=== PATIENT | male | born 1970 | race Caucasian/White ===

== ENCOUNTER → 2020-03-17 09:41 | Outpatient (BNVA) | payer MEDICARE, MEDICAID, SELFPAY | PROVIDERS: PCP Internal Medicine; Referring Provider Internal Medicine; Visit Provider Internal Medicine Endocrinology, Diabetes & Metabolism | DX: Z13.89 Encounter for screening for other disorder (principal) | CPT/HCPCS: Q3014 ==

== ENCOUNTER 2020-04-04 08:34 | Outpatient (REF) | payer MEDICARE, MEDICAID, SELFPAY ==
[2020-04-04 09:33] LABS: Mean Corpuscular Volume 94.4 fL (80-98); Monocytes Percent Auto 12.2 % (2-11)
[2020-04-04 09:35] LABS: Basophils Absolute Auto 0.1 X10*3/uL (0.0-0.2); Basophils Percent Auto 0.9 % (0-2); Eosinophils Absolute Auto 0.1 X10*3/uL (0.0-0.4); Eosinophils Percent Auto 1.6 % (0-4); Hematocrit 45.4 % (42-52); Imm Gran Abs Auto 0.02 X10*3/uL (0.00-0.03); Imm Gran Pct Auto 0.3 % (0.0-0.4); Lymphocytes Absolute Auto 1.3 X10*3/uL (1.2-4.9); Lymphocytes Percent Auto 19.3 % (20-40); Mean Corpuscular Hemoglobin 31.2 pg (27.0-33.0); Mean Platelet Volume 11.4 fL (9.4-12.4); Monocytes Absolute Auto 0.8 X10*3/uL (0.1-1.2); Neutrophils Absolute Auto 4.5 X10*3/uL (2.0-8.3); Neutrophils Percent Auto 65.7 % (45-73); Red Blood Count 4.81 X10*6/uL (4.60-5.80); Red Cell Distribution Width 15.3 % (11.0-16.0); White Blood Count 6.8 X10*3/uL (4.8-10.8)
[2020-04-04 09:37] LABS: MANUAL DIFF FLAG NO
[2020-04-04 09:42] LABS: Estimated Average Glucose 283 mg/dL; Hemoglobin A1c % 11.5 %
[2020-04-04 09:55] LABS: Creatinine Urine 15.26 mg/dL; Microalbumin Urine < 5.0 mg/L
[2020-04-04 09:59] LABS: Lithium 0.22 mmol/L (0.60-1.20); Platelet Count 88 X10*3/uL (160-400)
[2020-04-04 10:02] LABS: Osmolality Urine 408 mosm/kg (373-1093)
[2020-04-04 10:05] LABS: Osmolality, Serum 318 mosm/kg (281-305)
[2020-04-04 10:08] LABS: Alanine Aminotransferase 106 U/L (0-40); Albumin Level 4.1 g/dL (3.5-5.0); Alkaline Phosphatase 178 U/L (39-117); Anion Gap 14 (12-20); Aspartate Amino Transferase 93 U/L (5-37); Bilirubin Total 1.2 mg/dL (0.0-1.0); Blood Urea Nitrogen 6 mg/dL (9-16); Calcium 8.8 mg/dL (8.4-10.2); Carbon Dioxide 24 mmol/L (22-29); Chloride 102 mmol/L (96-108); Cholesterol 156 mg/dL; Estimated Glomerular Filt Rate > 60; HDL Cholesterol 43 mg/dL; LDL Cholesterol Calculated 97 mg/dl; Potassium 3.8 mmol/l (3.3-5.1); Sodium 136 mmol/L (135-145); Total Protein 8.7 g/dL (6.5-8.0); Triglycerides 82 mg/dL
[2020-04-04 10:18] LABS: Free T4 (Free Thyroxine) 1.07 ng/dL (0.71-1.85); Thyroid Stimulating Hormone 1.03 uIU/mL (0.32-4.0); Vitamin D 25-OH Total 56.2 ng/mL (>30)
[2020-04-04 11:05] LABS: Glucose Fasting 450 mg/dL (60-99)
[2020-04-05 07:27] LABS: LDL Cholesterol Direct 107 mg/dL (<100)
[2020-04-06 04:02] LABS: Vitamin B12 792 pg/mL (200-900)
== END 2020-04-04 08:35 | disposition home or self-care (01) ==
LOC: HO.LAB 08:34
PROVIDERS: Nurse Practitioner Family; Absent Provider Psychiatry & Neurology Psychiatry; PCP Internal Medicine; Visit Provider Internal Medicine Endocrinology, Diabetes & Metabolism
DX: E89.0 Postprocedural hypothyroidism (principal); Z79.899 Other long term (current) drug therapy; E03.9 Hypothyroidism, unspecified; E11.65 Type 2 diabetes mellitus with hyperglycemia
CPT/HCPCS: 36415; 80053; 80061; 80178; 82043; 82306; 82607; 83036; 83721; 83930; 83935; 84439; 84443; 85025

== ENCOUNTER → 2020-04-17 10:24 | Outpatient (BNVA) | payer MEDICARE, MEDICAID, SELFPAY | PROVIDERS: PCP Internal Medicine; Visit Provider Urology | DX: R33.9 Retention of urine, unspecified (principal) | CPT/HCPCS: 51798; 81002; 99212 ==

== ENCOUNTER → 2020-05-07 09:25 | Outpatient (BNVA) | payer MEDICARE, MEDICAID, SELFPAY | PROVIDERS: Visit Provider Urology | DX: E11.9 Type 2 diabetes mellitus without complications (principal); Z79.4 Long term (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 of insulin; R33.9 Retention of urine, unspecified; N49.2 Inflammatory disorders of scrotum | CPT/HCPCS: 51798; 81002; 99212 ==

== ENCOUNTER → 2020-05-11 12:49 | Outpatient (BNVA) | payer MEDICARE, MEDICAID, SELFPAY | PROVIDERS: PCP Internal Medicine; Visit Provider Internal Medicine Gastroenterology | CPT/HCPCS: Q3014 ==

== ENCOUNTER → 2020-07-21 10:41 | Outpatient (BNVA) | payer MEDICARE, MEDICAID, SELFPAY | PROVIDERS: PCP Internal Medicine; Referring Provider Internal Medicine; Visit Provider Internal Medicine Endocrinology, Diabetes & Metabolism | DX: E11.65 Type 2 diabetes mellitus with hyperglycemia (principal); E11.21 Type 2 diabetes mellitus with diabetic nephropathy; Z79.4 Long term (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 of insulin; E89.0 Postprocedural hypothyroidism; E78.5 Hyperlipidemia, unspecified; E55.9 Vitamin D deficiency, unspecified; E66.9 Obesity, unspecified | CPT/HCPCS: 82947; 99212 ==

== ENCOUNTER 2020-08-03 09:02 | Outpatient (REF) | payer MEDICARE, MEDICAID, SELFPAY ==
[2020-08-03 09:21] LABS: COVID-19 Test Negative (Negative)
== END 2020-08-03 09:03 | disposition home or self-care (01) ==
LOC: HO.LAB 09:02
PROVIDERS: Visit Provider Internal Medicine
DX: Z20.822 Contact with and (suspected) exposure to COVID-19 (principal)
CPT/HCPCS: 36415; 87635; C9803

== ENCOUNTER 2020-09-05 09:26 | Outpatient (REF) | payer MEDICARE, MEDICAID, SELFPAY ==
[2020-09-05 10:00] LABS: Imm Gran Abs Auto 0.02 X10*3/uL (0.00-0.03); Imm Gran Pct Auto 0.3 % (0.0-0.4); Mean Corpuscular Hemoglobin 31.7 pg (27.0-33.0); PLT CLUMP 1; Red Cell Distribution Width 16.3 % (11.0-16.0); SCAN SMEAR FLAG 1
[2020-09-05 10:01] LABS: Basophils Absolute Auto 0.1 X10*3/uL (0.0-0.2); Eosinophils Absolute Auto 0.1 X10*3/uL (0.0-0.4); Eosinophils Percent Auto 1.8 % (0-4); Hematocrit 46.5 % (42-52); Hemoglobin 15.3 g/dl (14.0-18.0); Lymphocytes Absolute Auto 1.6 X10*3/uL (1.2-4.9); Lymphocytes Percent Auto 23.9 % (20-40); Mean Corpuscular HGB Conc 32.9 g/dl (31.0-36.0); Mean Corpuscular Volume 96.3 fL (80-98); Mean Platelet Volume 10.9 fL (9.4-12.4); Monocytes Absolute Auto 0.9 X10*3/uL (0.1-1.2); Monocytes Percent Auto 13.9 % (2-11); Neutrophils Percent Auto 59.1 % (45-73); Red Blood Count 4.83 X10*6/uL (4.60-5.80); White Blood Count 6.8 X10*3/uL (4.8-10.8)
[2020-09-05 10:03] LABS: Platelet Count 80 X10*3/uL (160-400)
[2020-09-05 10:30] LABS: Lithium 0.28 mmol/L (0.60-1.20)
[2020-09-05 10:46] LABS: Alanine Aminotransferase 110 U/L (0-40); Albumin Level 4.3 g/dL (3.5-5.0); Alkaline Phosphatase 157 U/L (39-117); Anion Gap 18 (12-20); Aspartate Amino Transferase 110 U/L (5-37); Blood Urea Nitrogen 8 mg/dL (9-16); Calcium 10.1 mg/dL (8.4-10.2); Carbon Dioxide 24 mmol/L (22-29); Chloride 108 mmol/L (96-108); Cholesterol 161 mg/dL; Estimated Glomerular Filt Rate > 60; Glucose Random 229 mg/dL (60-115); HDL Cholesterol 45 mg/dL; LDL Cholesterol Calculated 94 mg/dl; Potassium 4.1 mmol/L (3.3-5.1); Sodium 146 mmol/L (135-145); Total Protein 8.8 g/dL (6.5-8.0); Triglycerides 112 mg/dL
[2020-09-05 11:02] LABS: Thyroid Stimulating Hormone 0.25 uIU/mL (0.32-4.0); Vitamin D 25-OH Total 51.5 ng/mL (>30)
== END 2020-09-05 09:27 | disposition home or self-care (01) ==
LOC: HO.LAB 09:26
PROVIDERS: PCP Internal Medicine; Visit Provider Psychiatry & Neurology Psychiatry
DX: Z79.899 Other long term (current) drug therapy (principal)
CPT/HCPCS: 36415; 80053; 80061; 80178; 82306; 84443; 85025

== ENCOUNTER 2020-09-25 17:03 | Inpatient (IN) | payer MEDICARE, MEDICAID, SELFPAY ==
--- NOTE | 2020-09-25 | ECG_ITS ---
Test Reason : CHEST PAIN Blood Pressure : / mmHG Vent. Rate : 098 BPM Atrial Rate : 098 BPM P-R Int : 144 ms QRS Dur : 090 ms QT Int : 376 ms P-R-T Axes : 033 041 033 degrees QTc Int : 480 ms Normal sinus rhythm Poor R wave progression Porlonged QT Abnormal ECG When compared with ECG of 14-NOV-2019 18:02, No significant change was found Referred By: Daphne Vigil Electronically Signed By:Clovis Roland
--- NOTE | ~2020-09-25 | CT_ITS ---
EXAMINATION: CT ABDOMEN AND PELVIS WITH CONTRAST CLINICAL INFORMATION: Mid abdominal pain? Pancreatitis COMPARISON: TECHNIQUE: Multidetector volumetric imaging was performed from the superior aspect of the liver through the pubic symphysis following administration of 85 cc of Omnipaque intravenous contrast Sagittal and coronal reformatted images were obtained on the technologist workstation.. This CT examination was performed using dose optimization techniques as appropriate, variously including the following: *Automated exposure control *Adjustment of mA and/or kV according to patient size (this includes techniques or standardized protocols for targeted exams where dose is matched to indication/reason for exam; i.e. extremities or head) *Use of iterative reconstruction technique DLP: 523 mGy-cm FINDINGS: LUNG BASES: The visualized lung bases are unremarkable. LIVER, GALLBLADDER, AND BILIARY TREE: Nodular cirrhotic appearing liver is again seen with innumerable subcentimeter hypodensities but no discrete or dominant lesions seen. No biliary ductal dilatation. Gallbladder appears be surgically absent. PANCREAS: Pancreas demonstrates homogeneous density. I do not appreciate any pancreatic ductal dilatation or obvious pancreatic lesion. No peripancreatic inflammatory changes or fluid. SPLEEN: Enlarged measuring 15 cm in length ADRENAL GLANDS: Unremarkable. KIDNEYS AND URETERS: There is mild fullness to both renal collecting systems and ureters without significant perinephric stranding. No obstructing ureteric calculi. Tiny punctate nonobstructing calculi in the lower pole collecting system of the left kidney. BLADDER: Dilated extending up above the umbilicus. Possible TURP defect in the prostate GASTROINTESTINAL TRACT: Few scattered colonic diverticula are seen within the tortuous colon but I do not appreciate any colonic wall thickening or pericolonic inflammatory changes. Normal-appearing appendix in the right lower quadrant. ABDOMINAL WALL: No significant hernia is appreciated. LYMPHOVASCULAR STRUCTURES: Mild vascular calcification within the aorta iliac system. There is sequela of portal hypertension with recanalization of the umbilical vein extending to abdominal wall varicosities as well as splenic and gastric varicosities as well as paraesophageal varicosities PELVIC VISCERA: Possible TURP defect within the prostate OSSEOUS STRUCTURES: Degenerative changes both hips. CT/CT abdomen pelvis w con IMPRESSION: Main acute finding of note is marked dilatation of the bladder extending up above the level of the umbilicus. There is associated hydronephrosis and hydroureter with dilatation of both renal collecting systems. This is new from the prior study. There is a suggestion of a possible TURP defect within the prostate. This could be clinically correlated. Nodular cirrhotic liver with innumerable subcentimeter hypodensities but no discrete or dominant mass lesion. Sequela of portal hypertension as described above.
--- NOTE | ~2020-09-25 | XR_ITS ---
EXAMINATION: XR CHEST CLINICAL INFORMATION: Chest pain COMPARISON: 11/14/2019 TECHNIQUE: Frontal view of the chest was obtained. FINDINGS: No significant abnormality is noted involving the heart, lungs, mediastinum, bony thorax or soft tissues. XR/XR chest 1V IMPRESSION: Unremarkable examination.
[2020-09-25 17:31] VITALS: BP 129/68; PULSE 97; RESP 18; TEMP 36.3; O2SAT 99; BMI 28.1
[2020-09-25 19:54] VITALS: BP 134/78; PULSE 91; RESP 15; TEMP 37; O2SAT 98
--- NOTE | 2020-09-25 20:01 | ED_ITS ---
HPI - Abdominal Pain General Chief Complaint: Chest Pain Stated Complaint: abd pain Time Seen by Provider: 09/25/20 20:01 Source: patient Mode of arrival: ambulatory Limitations: no limitations History of Present Illness HPI narrative: Patient with history diabetes, bipolar disorder , alcohol abuse drinking almost every day stopped drinking 3 days ago been having upper abdominal pain vomiting coffee colored for 5 times a day also having dark stools patient never had endoscopy done before never had similar complaints in the past had blood workup done on 09/05 showed elevated LFT ALT 110 AST 110 alkaline phos at 0 157 bilirubin of 1 hemoglobin was 15.3 and hematocrit 46.5. Patient never had vomiting blood in the past pain in abdomen localized mostly in epigastric area going to the mid chest patient feels shaky and uneasy Related Data Home Medications Medication Instructions Recorded Confirmed benztropine 0.5 mg tablet 0.5 mg PO DAILY 02/14/20 07/26/20 clonazepam 1 mg tablet 1 mg PO BID PRN 02/14/20 07/26/20 mirtazapine 45 mg tablet 45 mg PO BEDTIME 02/14/20 07/26/20 risperidone 2 mg tablet 2 mg PO BEDTIME 02/14/20 07/26/20 lithium carbonate 300 mg tablet See Rx Instructions PO .COMPLEX 04/17/20 07/26/20 trazodone 50 mg tablet See Rx Instructions PO BEDTIME PRN 04/17/20 07/26/20 tab Previous Rx's Medication Instructions Recorded tamsulosin 0.4 mg capsule 0.8 mg PO BEDTIME #60 cap 04/17/20 cholecalciferol (vitamin D3) 50 50 mcg PO DAILY 90 Days #90 cap 07/21/20 mcg (2,000 unit) capsule dulaglutide 3 mg/0.5 mL 3 mg SUBCUT QWEEK 30 Days #2.5 ml 07/21/20 subcutaneous pen injector empagliflozin 25 mg tablet 25 mg PO DAILY 90 Days #90 tab 07/21/20 insulin glargine U-300 conc 300 60 unit SUBCUT DAILY 30 Days #6 ml 07/21/20 unit/mL (1.5 mL) subcutaneous pen insulin lispro-aabc 100 unit/mL 20 unit SUBCUT TID 30 Days #18 ml 07/21/20 subcutaneous pen levothyroxine 137 mcg tablet 137 mcg PO QAM 30 Days #30 tab 07/21/20 atorvastatin 20 mg tablet 20 mg PO BEDTIME #30 tab 08/13/20 Allergies Allergy/AdvReac Type Severity Reaction Status Date / Time No Known Allergies Allergy Verified 09/26/20 00:22 [No Known Allergies*] Review of Systems Review of Systems Constitutional : No Weight loss, No Fever, No Chills ENT/Mouth : No sore throat, No Rhinorrhea Eyes: No Eye Pain, No Swelling Cardiovascular : No Chest Pain, no palpitations Respiratory : No Cough, No Sputum, no shortness of breath Gastrointestinal : +Nausea, + Vomiting, No Diarrhea, + abdominal Pain, + black stools Genitourinary : No Dysuria, No Urinary Frequency Musculoskeletal : No joint pain, No Myalgias, No Joint Swelling Skin : No Skin Lesions, No rash Neuro : No Weakness, No Numbness, No Dizziness, No Headache Psych : No Anxiety/Panic, No Depression Heme/Lymph: No Bruising, No Lymphadenopathy Endocrine : No Polyuria, No Polydipsia All other systems reviewed and are negative Physical Exam Vital Signs: Vital Signs: Last Vital Signs Temp 98.6 F 09/25/20 19:54 Pulse 96 09/26/20 00:11 Resp 19 09/26/20 00:11 BP 120/72 09/26/20 00:11 Pulse Ox 98 09/26/20 00:11 Body Mass Index 28.1 Appearance: Alert. Oriented X3. No acute distress. Little restless and shaky Eyes: PERRLA, No Nystagmus ENT: Pharynx normal. Oral Mucosa moist Neck: Normal inspection. Neck supple. CVS: Normal heart rate and rhythm. Pulses normal. Respiratory: No respiratory distress. Equal air entry bilateral, no w heezing/rales/rhonchi Abdomen: Soft and diffuse epigastric and right upper quadrant tenderness Bowel sounds are present, no mass palpable, no CVA tenderness Rectal: Dark stool guaiac positive Skin: Skin warm and dry. Normal skin color. Normal skin turgor. Extremities: No lower extremity edema. No calf tenderness Neuro: Oriented X 3. No motor deficit. No sensory deficit.No cerebellar signs , cranial nerves II-XII intact MDM - Abdominal Pain MDM Narrative Medical decision making narrative: Patient history of alcohol abuse came with upper abdominal pain with coughing blood vomiting and black stools which is guaiac positive lab workup showed significant drop hemoglobin from 15.3 on 09/05 to 10.9 today. Will admit patient for alcoholic gastritis possible for endoscopy CT scan done which has not shown any signs of portal vein hypertension Medical Records Attestation: I reviewed the patient's medical records. Lab Data Attestation: I reviewed the patient's lab results. Result diagrams: 09/25/20 20:28 09/25/20 20:28 Labs: Lab Results 09/25/20 09/25/20 09/25/20 Range/Units 20:28 20:28 20:28 WBC 15.7 H (4.8-10.8) X10*3/uL RBC 3.22 L D (4.60-5.80) X10*6/uL Hgb 10.9 L D (14.0-18.0) g/dl Hct 31.4 L D (42-52) % MCV 97.5 (80-98) fL MCH 33.9 H (27.0-33.0) pg MCHC 34.7 (31.0-36.0) g/dl RDW 16.5 H (11.0-16.0) % Plt Count 118 L D (160-400) X10*3/uL MPV 11.0 (9.4-12.4) fL Immature Gran % (Auto) 1.0 H (0.0-0.4) % Neut % (Auto) 60.7 (45-73) % Lymph % (Auto) 16.7 L (20-40) % [place] % (Auto) 20.5 H (2-11) % Eos % (Auto) 0.7 (0-4) % Baso % (Auto) 0.4 (0-2) % Lymph # (Auto) 2.6 (1.2-4.9) X10*3/uL [place] # (Auto) 3.2 H (0.1-1.2) X10*3/uL Eos # (Auto) 0.1 (0.0-0.4) X10*3/uL Baso # (Auto) 0.1 (0.0-0.2) X10*3/uL Abs Immat Gran (auto) 0.15 H (0.00-0.03) X10*3/uL Absolute Neuts (auto) 9.5 H (2.0-8.3) X10*3/uL Absolute Nucleated RBC 0.020 H (0.0-0.012) X10*3/uL Nucleated RBC % (auto) 0.1 (0.0-0.2) /100WBC Smear Tech's Comments VERIFIED PT (10.8-13.0) SEC INR (0.9-1.1) Sodium 137 (135-145) mmol/L Potassium 4.1 (3.3-5.1) mmol/L Chloride 102 (96-108) mmol/L Carbon Dioxide 21 L (22-29) mmol/L Anion Gap 18 (12-20) BUN 33 H D (9-16) mg/dL Creatinine 1.20 (0.5-1.4) mg/dL Estim Creat Clear Calc 73.6 Estimated GFR > 60 POC Glucose (60-115) mg/dL Random Glucose 377 H* (60-115) mg/dL Calcium 9.8 (8.4-10.2) mg/dL Magnesium (1.6-2.6) mg/dL Total Bilirubin 1.4 H (0.0-1.0) mg/dL Direct Bilirubin 0.8 H (0.0-0.5) mg/dL AST 327 H (5-37) U/L ALT 392 H (0-40) U/L Alkaline Phosphatase 120 H D (39-117) U/L Troponin I High Sens 5.3 (<3.5-35.0) ng/L Total Protein 7.9 (6.5-8.0) g/dL Albumin 4.1 (3.5-5.0) g/dL Lipase (8-78) U/L Urine Color Urine Appearance Urine pH (5.0-8.0) Ur Specific [place] (1.005-1.025) Urine Protein (NEG-TRACE) MG/DL Urine Glucose (UA) (NEG) MG/DL Urine Ketones (NEG) MG/DL Urine Blood (NEG) Urine Nitrite (NEG) Ur Leukocyte Esterase (NEG) Urine RBC (0) /HPF Urine WBC (0-4) /HPF Ur Squamous Epith Cells /LPF Urine Bacteria /LPF Stool Occult Blood (NEGATIVE) 09/25/20 09/25/20 09/25/20 Range/Units 20:28 20:28 22:13 WBC (4.8-10.8) X10*3/uL RBC (4.60-5.80) X10*6/uL Hgb (14.0-18.0) g/dl Hct (42-52) % MCV (80-98) fL MCH (27.0-33.0) pg MCHC (31.0-36.0) g/dl RDW (11.0-16.0) % Plt Count (160-400) X10*3/uL MPV (9.4-12.4) fL Immature Gran % (Auto) (0.0-0.4) % Neut % (Auto) (45-73) % Lymph % (Auto) (20-40) % [place] % (Auto) (2-11) % Eos % (Auto) (0-4) % Baso % (Auto) (0-2) % Lymph # (Auto) (1.2-4.9) X10*3/uL [place] # (Auto) (0.1-1.2) X10*3/uL Eos # (Auto) (0.0-0.4) X10*3/uL Baso # (Auto) (0.0-0.2) X10*3/uL Abs Immat Gran (auto) (0.00-0.03) X10*3/uL Absolute Neuts (auto) (2.0-8.3) X10*3/uL Absolute Nucleated RBC (0.0-0.012) X10*3/uL Nucleated RBC % (auto) (0.0-0.2) /100WBC Smear Tech's Comments PT 18.2 H (10.8-13.0) SEC INR 1.5 H (0.9-1.1) Sodium (135-145) mmol/L Potassium (3.3-5.1) mmol/L Chloride (96-108) mmol/L Carbon Dioxide (22-29) mmol/L Anion Gap (12-20) BUN (9-16) mg/dL Creatinine (0.5-1.4) mg/dL Estim Creat Clear Calc Estimated GFR POC Glucose (60-115) mg/dL Random Glucose (60-115) mg/dL Calcium (8.4-10.2) mg/dL Magnesium 2.6 (1.6-2.6) mg/dL Total Bilirubin (0.0-1.0) mg/dL Direct Bilirubin (0.0-0.5) mg/dL AST (5-37) U/L ALT (0-40) U/L Alkaline Phosphatase (39-117) U/L Troponin I High Sens (<3.5-35.0) ng/L Total Protein (6.5-8.0) g/dL Albumin (3.5-5.0) g/dL Lipase 66 (8-78) U/L Urine Color YELLOW Urine Appearance CLEAR Urine pH 6.0 (5.0-8.0) Ur Specific [place] <= 1.005 (1.005-1.025) Urine Protein NEG (NEG-TRACE) MG/DL Urine Glucose (UA) >=1000 H (NEG) MG/DL Urine Ketones 15 (NEG) MG/DL Urine Blood NEG (NEG) Urine Nitrite NEG (NEG) Ur Leukocyte Esterase NEG (NEG) Urine RBC 0-2 (0) /HPF Urine WBC 0 (0-4) /HPF Ur Squamous Epith Cells NONE /LPF Urine Bacteria NONE /LPF Stool Occult Blood (NEGATIVE) 09/25/20 09/26/20 Range/Units 23:33 00:27 WBC (4.8-10.8) X10*3/uL RBC (4.60-5.80) X10*6/uL Hgb (14.0-18.0) g/dl Hct (42-52) % MCV (80-98) fL MCH (27.0-33.0) pg MCHC (31.0-36.0) g/dl RDW (11.0-16.0) % Plt Count (160-400) X10*3/uL MPV (9.4-12.4) fL Immature Gran % (Auto) (0.0-0.4) % Neut % (Auto) (45-73) % Lymph % (Auto) (20-40) % [place] % (Auto) (2-11) % Eos % (Auto) (0-4) % Baso % (Auto) (0-2) % Lymph # (Auto) (1.2-4.9) X10*3/uL [place] # (Auto) (0.1-1.2) X10*3/uL Eos # (Auto) (0.0-0.4) X10*3/uL Baso # (Auto) (0.0-0.2) X10*3/uL Abs Immat Gran (auto) (0.00-0.03) X10*3/uL Absolute Neuts (auto) (2.0-8.3) X10*3/uL Absolute Nucleated RBC (0.0-0.012) X10*3/uL Nucleated RBC % (auto) (0.0-0.2) /100WBC Smear Tech's Comments PT (10.8-13.0) SEC INR (0.9-1.1) Sodium (135-145) mmol/L Potassium (3.3-5.1) mmol/L Chloride (96-108) mmol/L Carbon Dioxide (22-29) mmol/L Anion Gap (12-20) BUN (9-16) mg/dL Creatinine (0.5-1.4) mg/dL Estim Creat Clear Calc Estimated GFR POC Glucose 216 H (60-115) mg/dL Random Glucose (60-115) mg/dL Calcium (8.4-10.2) mg/dL Magnesium (1.6-2.6) mg/dL Total Bilirubin (0.0-1.0) mg/dL Direct Bilirubin (0.0-0.5) mg/dL AST (5-37) U/L ALT (0-40) U/L Alkaline Phosphatase (39-117) U/L Troponin I High Sens (<3.5-35.0) ng/L Total Protein (6.5-8.0) g/dL Albumin (3.5-5.0) g/dL Lipase (8-78) U/L Urine Color Urine Appearance Urine pH (5.0-8.0) Ur Specific [place] (1.005-1.025) Urine Protein (NEG-TRACE) MG/DL Urine Glucose (UA) (NEG) MG/DL Urine Ketones (NEG) MG/DL Urine Blood (NEG) Urine Nitrite (NEG) Ur Leukocyte Esterase (NEG) Urine RBC (0) /HPF Urine WBC (0-4) /HPF Ur Squamous Epith Cells /LPF Urine Bacteria /LPF Stool Occult Blood POSITIVE (NEGATIVE) ECG Data Attestation: I personally reviewed and interpreted this ECG as follows: Interpretation: Normal sinus rhythm with heart rate 98 beats per minute normal intervals normal axis no acute ST T wave changes no acute ischemia Discharge Plan Discharge Clinical Impression: Acute alcoholic hepatitis, Acute upper gastrointestinal bleeding Anemia Qualifiers: Anemia type: other cause Other causes of anemia: other cause, not classified Qualified Code(s): D64.89 - Other specified anemias Diabetes type 2, uncontrolled Qualifiers: Glycemic state: with hyperglycemia Qualified Code(s): E11.65 - Type 2 diabetes mellitus with hyperglycemia Patient Disposition: Admitted As Inpatient [facility] Past Medical History Medical History Abnormal liver function test Bipolar depression Bipolar disorder BPH (benign prostatic hyperplasia) Cirrhosis Diabetes Diabetes mellitus type 2, uncontrolled Diabetes type 2, uncontrolled Diabetic nephropathy associated with type 2 diabetes mellitus Dyslipidemia Elevated LFTs Hypothyroidism 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, urine 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
[2020-09-25 20:29] VITALS: BP 142/85; PULSE 92; RESP 24; O2SAT 98
[2020-09-25] MEDS: 0.9 % Sodium Chloride 1,000 ML 999 ML IVCONT (20:31)
[2020-09-25] MEDS: ondansetron HCL 4 MG/2 ML VIAL IVPUSH (20:32)
[2020-09-25] MEDS: Famotidine/PF 20 MG/2 ML VIAL IVPUSH (20:32)
[2020-09-25] MEDS: LORazepam 2 MG/ML VIAL 1 MG IVPUSH (20:32)
[2020-09-25 20:45] LABS: Basophils Absolute Auto 0.1 X10*3/uL (0.0-0.2); Basophils Percent Auto 0.4 % (0-2); Eosinophils Absolute Auto 0.1 X10*3/uL (0.0-0.4); Eosinophils Percent Auto 0.7 % (0-4); Hematocrit 31.4 % (42-52); Hemoglobin 10.9 g/dl (14.0-18.0); Imm Gran Abs Auto 0.15 X10*3/uL (0.00-0.03); Lymphocytes Absolute Auto 2.6 X10*3/uL (1.2-4.9); Lymphocytes Percent Auto 16.7 % (20-40); MANUAL DIFF FLAG SCAN; Mean Corpuscular HGB Conc 34.7 g/dl (31.0-36.0); Mean Corpuscular Hemoglobin 33.9 pg (27.0-33.0); Mean Corpuscular Volume 97.5 fL (80-98); Monocytes Absolute Auto 3.2 X10*3/uL (0.1-1.2); Monocytes Percent Auto 20.5 % (2-11); NRBC Pct Auto 0.1 /100WBC (0.0-0.2); Neutrophils Absolute Auto 9.5 X10*3/uL (2.0-8.3); Neutrophils Percent Auto 60.7 % (45-73); Platelet Count 118 X10*3/uL (160-400); Red Blood Count 3.22 X10*6/uL (4.60-5.80); Red Cell Distribution Width 16.5 % (11.0-16.0); SCAN SMEAR FLAG 1; White Blood Count 15.7 X10*3/uL (4.8-10.8)
[2020-09-25 20:50] LABS: INTERNATIONAL NORM RATIO 1.5 (0.9-1.1); Prothrombin Time 18.2 SEC (10.8-13.0)
[2020-09-25] MEDS: iohexoL 350 MG/ML 100 ML INFUS..BTL IV (20:51)
[2020-09-25 21:04] LABS: SLIDE REVIEW VERIFIED
[2020-09-25 21:07] LABS: Lipase 66 U/L (8-78); Magnesium 2.6 mg/dL (1.6-2.6)
[2020-09-25 21:13] LABS: Troponin-I High Sensitivity 5.3 ng/L (<3.5-35.0)
[2020-09-25 21:27] LABS: Alanine Aminotransferase 392 U/L (0-40); Albumin Level 4.1 g/dL (3.5-5.0); Alkaline Phosphatase 120 U/L (39-117); Anion Gap 18 (12-20); Aspartate Amino Transferase 327 U/L (5-37); Bilirubin Direct 0.8 mg/dL (0.0-0.5); Bilirubin Total 1.4 mg/dL (0.0-1.0); Blood Urea Nitrogen 33 mg/dL (9-16); Calcium 9.8 mg/dL (8.4-10.2); Carbon Dioxide 21 mmol/L (22-29); Chloride 102 mmol/L (96-108); Creatinine Clr Calc Pharmacy 73.6; Estimated Glomerular Filt Rate > 60; Glucose Random 377 mg/dL (60-115); Potassium 4.1 mmol/L (3.3-5.1); Sodium 137 mmol/L (135-145); Total Protein 7.9 g/dL (6.5-8.0)
[2020-09-25 22:00] VITALS: BP 129/77; PULSE 88; RESP 18; O2SAT 98
[2020-09-25 22:20] LABS: Glucose Urine UA >=1000 MG/DL (NEG); Leukocyte Esterase Urine NEG (NEG); Nitrite Urine NEG (NEG); Specific Gravity - Urine <= 1.005 (1.005-1.025); Urine Blood NEG (NEG); Urine Ketones 15 MG/DL (NEG); Urine Protein NEG (NEG-TRACE)
[2020-09-25 22:21] LABS: Appearance Urine CLEAR; Color Urine YELLOW
[2020-09-25 22:49] LABS: RBC Urine 0-2 /HPF (0); WBC Urine 0 /HPF (0-4)
[2020-09-25 23:38] LABS: Glucose, Whole Blood 216 mg/dL (60-115)
[2020-09-26] VITALS (9 sets, daily range): BP systolic 98–135; BP diastolic 52–73; PULSE 80–104; RESP 15–20; TEMP 36.3–37.4; O2SAT 94–98
[2020-09-26] MEDS: chlordiazePOXIDE HCl 25 MG CAPSULE 50 MG PO (00:09)
--- NOTE | 2020-09-26 00:19 | PC.NURSE ---
care of patient at 00:00 following md's instructions to administer librium. under the impression that pt was going to be discharged. md performed obs and rectal exam, which came back positive. pt has been vomiting blood x 3 days, aprox 4 times a day. pt aware of plan for admission, is agreeable.
[2020-09-26 00:37] LABS: OBS Int Ctl Valid YES; OBS1 POSITIVE (NEGATIVE)
[2020-09-26] MEDS: Pantoprazole Sodium 40 MG/10 ML VIAL 80 MG IVPUSH (00:54)
[2020-09-26] MEDS: Pantoprazole Sodium 80 MG in 0.9 % Sodium Chloride 80 ML 10 MG IV (00:56)
[2020-09-26 01:27] LABS: COVID-19 Test Negative (Negative)
[2020-09-26] MEDS: PHENobarbitaL sodium 130 MG/ML VIAL 264 MG IM (01:58)
--- NOTE | 2020-09-26 03:00 | PC.NURSE ---
pt reports that a visiting nurse comes to his house daily to give him his medications. he also asked for pads on the bed for urinary incontinence. pt was using urinal and walking to bathroon.
--- NOTE | 2020-09-26 03:35 | PC.NURSE ---
PANTOPRAZOLE INFUSION STOPPED AND D/C'D BY HOSPITALIST.
--- NOTE | 2020-09-26 04:44 | PC.NURSE ---
report given to RN on floor, pt ready for transport.
[2020-09-26] MEDS: PHENobarbitaL sodium 130 MG/ML VIAL 198 MG IM ×2 (04:55→08:18)
--- NOTE | 2020-09-26 05:12 | PC.NURSE ---
report given to rn on floor, pt ready for transport.
[2020-09-26 06:03] LABS: Glucose, Whole Blood 175 mg/dL (60-115)
--- NOTE | 2020-09-26 06:15 | PM.IMHP ---
History of Present Illness Date of Service: 09/26/20 Chief Complaint: vomiting blood This is a 50-year-old male with a past medical history of alcohol abuse, bipolar depression, diabetes, liver cirrhosis, dyslipidemia, hypothyroidism, among others who presents to the hospital with complaints of vomiting blood for the past 3 days. Patient reports that he was having nausea, had vomiting for past 3 day multiple episode a day and each time had large amount of blood. He is complaining of pain in the right lower abdominal quadrant, he has also had black stools for the past 10 days. Abdominal pain is 7/10, crampy, nonradiating, patient is also complaining of stabbing left-sided chest pain that is intermittent and chronic for few months. He has had no similar episode in the past. Patient is a chronic alcohol drinker and drinks about 6 pack beer a day. On arrival to the ED patient vitals significant for temp of 98.6?, respiratory rate of 15 to 20, heart rate of 92, blood pressure 142/85, satting 90% on room air Labs are significant for WBC count of 15.7, hemoglobin of 10.9 was had dropped from 15.3 in August of 2028 this year, hematocrit 31.04, PT of 18.2, INR of 1.5, BUN of 33, creatinine of 1.2 with a baseline around 0.9, total bili of 1.4, AST of 327, ALT of 392, alk-phos of 120, (these numbers are chronically elevated but this x3 times higher), UA positive for glucose, stool occult blood positive, negative for COVID, Main acute finding of note is marked dilatation of the bladder extending up above the level of the umbilicus, associated hydronephrosis and hydroureter with dilatation of both renal collecting systems, suggestion of a possible TURP defect within the prostate, nodular cirrhotic liver with innumerable subcentimeter hypodensities but no discrete or dominant mass lesion. 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 Obesity (BMI 30-39.9) Postablative hypothyroidism Pure hypercholesterolemia Scrotal wall abscess Urinary retention Vitamin D deficiency Family History Father Diabetes Mother Diabetes Maternal Aunt Family history of thyroid problem Surgical History History of arthroscopy of left knee History of laparoscopic cholecystectomy Hx of colonoscopy Social History Household Members: None Housing: House Do you presently have visiting nurse or other home services: Yes Alcohol intake: current Alcohol intake frequency: a few times a week Patient Tobacco Use Status: Never used Tobacco Use of substances other than those prescribed or required for medical reasons: No Have you been hit, kicked, punched, or otherwise hurt by someone within the past year? If so, by whom?: No Do you feel safe in your current relationship?: No Current Relationship Is there a partner from a previous relationship who is making you feel unsafe now?: No Are you made to feel afraid or neglected: No Spiritual Healthcare Practices: no [facility] Practices: no Cultural Healthcare Practices: no Advance Directives: No Advance Directives Information Provided: No Do you have thoughts of harming others: None Do you have a plan to hurt others: No Plan Recently lost weight without trying: No Nutrition Risks: No Nutritional Risk Poor oral hygiene: No Meds Allergies Allergy/AdvReac Type Severity Reaction Status Date / Time No Known Allergies Allergy Verified 09/26/20 00:22 [No Known Allergies*] Active Medications: Current Medications Generic Name Dose Route Start Last Admin Trade Name Freq PRN Reason Stop Dose Admin Acetaminophen 650 mg 09/26/20 05:36 Acetaminophen 325 Mg Tablet PO Q6H PRN Pain, Mild (Pain Scale 1-3) Docusate Sodium 100 mg 09/26/20 05:36 Docusate Sodium 100 Mg Capsule PO DAILY PRN Constipation Folic Acid 1 mg 09/26/20 09:00 Folic Acid 1 Mg/0.2 Ml Syringe IM DAILY [place] Pantoprazole Sodium 80 mg/ 100 mls @ 10 mls/hr 09/26/20 00:30 09/26/20 03:36 Sodium Chloride IV 0 mg/hr .Q10H [facility] 0 mls/hr Infusion 8 MG/HR Medication 1 each 09/26/20 09:00 No Benzodiazepines MISCELLANE DAILY [facility] Ondansetron HCl 4 mg 09/26/20 05:36 Ondansetron Hcl 4 Mg/2 Ml Vial IVPUSH Q8H PRN Nausea and Vomiting Pantoprazole Sodium 40 mg 09/26/20 06:30 Pantoprazole Sodium 40 Mg/10 Ml Vial IVPUSH BID@[id number],1630 [facility] Pharmacy Consult 1 each 09/26/20 01:05 Consult Rx Etoh Phenob Dosing MISCELLANE 09/26/20 01:06 ONCE ONE Protocol Phenobarbital 45 mg 09/26/20 21:00 Phenobarbital 15 Mg Tablet PO 09/28/20 09:01 BID [facility] Protocol Phenobarbital 15 mg 09/28/20 21:00 Phenobarbital 15 Mg Tablet PO 09/30/20 09:01 BID [facility] Phenobarbital 15 mg 09/30/20 21:00 Phenobarbital 15 Mg Tablet PO 10/01/20 09:01 DAILY [facility] Phenobarbital Sodium 198 mg 09/26/20 04:30 09/26/20 04:55 Phenobarbital Sodium 130 Mg/Ml Vial IM 09/26/20 07:31 198 mg Q3H [facility] Administration Sodium Chloride 3 ml 09/26/20 08:00 0.9 % Sodium Chloride Flush 3 Ml Syringe IVFLUSH QSHIFT [facility] Thiamine HCl 100 mg 09/26/20 09:00 Thiamine Hcl 100 Mg Tablet PO DAILY [facility] Home Medications Medication Instructions Recorded Confirmed Last Taken Type benztropine 0.5 mg tablet 0.5 mg PO DAILY 02/14/20 09/26/20 Unknown History clonazepam 1 mg tablet 1 mg PO BID PRN 02/14/20 09/26/20 Unknown History mirtazapine 45 mg tablet 45 mg PO BEDTIME 02/14/20 09/26/20 Unknown History risperidone 2 mg tablet 2 mg PO BEDTIME 02/14/20 09/26/20 Unknown History lithium carbonate 300 mg tablet See Rx Instructions PO .COMPLEX 04/17/20 09/26/20 Unknown History trazodone 50 mg tablet See Rx Instructions PO BEDTIME PRN 04/17/20 09/26/20 Unknown History tab oxycodone 1 tab PO Q4H PRN 09/26/20 09/26/20 Unknown History venlafaxine 1 cap PO DAILY 09/26/20 09/26/20 Unknown History Physical Exam Vital Signs and Narrative: Vital Signs: Last Vital Signs Temp 97.8 F 09/26/20 05:49 Pulse 86 09/26/20 05:49 Resp 18 09/26/20 05:49 BP 125/69 09/26/20 05:49 Pulse Ox 97 09/26/20 05:49 Body Mass Index 28.1 Const: Other: Patient clinically appears to be in withdrawal General: cooperative and no acute distress Orientation/consciousness: patient oriented x3 Eyes: General: appearance normal, both eyes and all related structures Resp: Effort & Inspection: normal respiratory effort and able to speak in complete sentences Cardio: Rate: regular rate Rhythm: regular rhythm GI: Other: No rebound or guarding Palpation (GI): Soft to palpation Auscultation: normal bowel sounds Skin: General skin exam: no rashes or lesions noted Neuro: General: patient oriented x3 Cognition (Neuro): normal cognition Extrem: General: Yes normal to inspection and Yes no pedal edema Results Labs CBC and Chem 7: 09/25/20 20:28 09/25/20 20:28 Labs: Laboratory Results - last 24 hr 09/25/20 09/25/20 09/25/20 20:28 20:28 20:28 MCV 97.5 MCH 33.9 H MCHC 34.7 RDW 16.5 H Plt Count 118 L D MPV 11.0 Immature Gran % (Auto) 1.0 H Neut % (Auto) 60.7 Lymph % (Auto) 16.7 L Swift % (Auto) 20.5 H Eos % (Auto) 0.7 Baso % (Auto) 0.4 Lymph # (Auto) 2.6 Swift # (Auto) 3.2 H Eos # (Auto) 0.1 Baso # (Auto) 0.1 Abs Immat Gran (auto) 0.15 H Absolute Neuts (auto) 9.5 H Absolute Nucleated RBC 0.020 H Nucleated RBC % (auto) 0.1 Smear Tech's Comments VERIFIED PT INR Anion Gap 18 Estim Creat Clear Calc 73.6 Estimated GFR > 60 POC Glucose Random Glucose 377 H* Calcium 9.8 Magnesium Total Bilirubin 1.4 H Direct Bilirubin 0.8 H AST 327 H ALT 392 H Alkaline Phosphatase 120 H D Troponin I High Sens 5.3 Total Protein 7.9 Albumin 4.1 Lipase Urine Color Urine Appearance Urine pH Ur Specific Volcano Urine Protein Urine Glucose (UA) Urine Ketones Urine Blood Urine Nitrite Ur Leukocyte Esterase Urine RBC Urine WBC Ur Squamous Epith Cells Urine Bacteria Stool Occult Blood COVID-19 ([facility]EMIO) COVID-19 [facility] Com Blood Type Antibody Screen 09/25/20 09/25/20 09/25/20 20:28 20:28 22:13 MCV MCH MCHC RDW Plt Count MPV Immature Gran % (Auto) Neut % (Auto) Lymph % (Auto) Swift % (Auto) Eos % (Auto) Baso % (Auto) Lymph # (Auto) Swift # (Auto) Eos # (Auto) Baso # (Auto) Abs Immat Gran (auto) Absolute Neuts (auto) Absolute Nucleated RBC Nucleated RBC % (auto) Smear Tech's Comments PT 18.2 H INR 1.5 H Anion Gap Estim Creat Clear Calc Estimated GFR POC Glucose Random Glucose Calcium Magnesium 2.6 Total Bilirubin Direct Bilirubin AST ALT Alkaline Phosphatase Troponin I High Sens Total Protein Albumin Lipase 66 Urine Color YELLOW Urine Appearance CLEAR Urine pH 6.0 Ur Specific Volcano <= 1.005 Urine Protein NEG Urine Glucose (UA) >=1000 H Urine Ketones 15 Urine Blood NEG Urine Nitrite NEG Ur Leukocyte Esterase NEG Urine RBC 0-2 Urine WBC 0 Ur Squamous Epith Cells NONE Urine Bacteria NONE Stool Occult Blood COVID-19 (ARTEMIO) COVID-19 [facility] Blood Type Antibody Screen 09/25/20 09/26/20 09/26/20 23:33 00:27 00:27 MCV MCH MCHC RDW Plt Count MPV Immature Gran % (Auto) Neut % (Auto) Lymph % (Auto) Swift % (Auto) Eos % (Auto) Baso % (Auto) Lymph # (Auto) Swift # (Auto) Eos # (Auto) Baso # (Auto) Abs Immat Gran (auto) Absolute Neuts (auto) Absolute Nucleated RBC Nucleated RBC % (auto) Smear Tech's Comments PT INR Anion Gap Estim Creat Clear Calc Estimated GFR POC Glucose 216 H Random Glucose Calcium Magnesium Total Bilirubin Direct Bilirubin AST ALT Alkaline Phosphatase Troponin I High Sens Total Protein Albumin Lipase Urine Color Urine Appearance Urine pH Ur Specific [place]cano Urine Protein Urine Glucose (UA) Urine Ketones Urine Blood Urine Nitrite Ur Leukocyte Esterase Urine RBC Urine WBC Ur Squamous Epith Cells Urine Bacteria Stool Occult Blood POSITIVE COVID-19 ([facility]) COVID-19 Clin Com Blood Type A Positive Antibody Screen NEGATIVE 09/26/20 09/26/20 01:07 06:00 MCV MCH MCHC RDW Plt Count MPV Immature Gran % (Auto) Neut % (Auto) Lymph % (Auto) Swift % (Auto) Eos % (Auto) Baso % (Auto) Lymph # (Auto) Swift # (Auto) Eos # (Auto) Baso # (Auto) Abs Immat Gran (auto) Absolute Neuts (auto) Absolute Nucleated RBC Nucleated RBC % (auto) Smear Tech's Comments PT INR Anion Gap Estim Creat Clear Calc Estimated GFR POC Glucose 175 H Random Glucose Calcium Magnesium Total Bilirubin Direct Bilirubin AST ALT Alkaline Phosphatase Troponin I High Sens Total Protein Albumin Lipase Urine Color Urine Appearance Urine pH Ur Specific [place]cano Urine Protein Urine Glucose (UA) Urine Ketones Urine Blood Urine Nitrite Ur Leukocyte Esterase Urine RBC Urine WBC Ur Squamous Epith Cells Urine Bacteria Stool Occult Blood COVID-19 (ARTEMIO) Negative COVID-19 Clin Com See Note Blood Type Antibody Screen Imaging Radiologist's Impressions: Impressions Abdomen/Pelvis CT 09/25/20 20:01 IMPRESSION: Main acute finding of note is marked dilatation of the bladder extending up above the level of the umbilicus. There is associated hydronephrosis and hydroureter with dilatation of both renal collecting systems. This is new from the prior study. There is a suggestion of a possible TURP defect within the prostate. This could be clinically correlated. Nodular cirrhotic liver with innumerable subcentimeter hypodensities but no discrete or dominant mass lesion. Sequela of portal hypertension as described above. Chest X-Ray 09/26/20 00:31 IMPRESSION: Unremarkable examination. Assessment and Plan (1) Acute upper gastrointestinal bleeding: Status: Acute (2) Coffee ground emesis: Status: Acute (3) Anemia: Qualifiers: Anemia type: other cause Other causes of anemia: other cause, not classified Qualified Code(s): D64.89 - Other specified anemias Status: Acute (4) Transaminitis: Status: Acute (5) Cirrhosis: Status: Acute (6) Diabetes mellitus type 2, uncontrolled: Qualifiers: Glycemic state: with hyperglycemia Qualified Code(s): E11.65 - Type 2 diabetes mellitus with hyperglycemia Status: Acute (7) Alcohol abuse with withdrawal: Status: Acute (8) Abdominal pain: Status: Acute This is a 50-year-old male who presents to the hospital with complaints of hematemesis as well as abdominal pain found to have acute anemia # coffee-ground emesis - most likely secondary to upper GI bleed in the setting of alcohol abuse alcoholic gastritis versus esophageal - hemodynamically stable although had drop in in hemoglobin of around 4 units in less than 3 weeks - will start him on IV PPI - make NPO - consult gastroenterology # normocytic anemia - most likely secondary to GI bleed - patient has positive occult stool, reported hematemesis - hemoglobin dropped from 15-10.9 since September 05 - vitals stable - at this time will consult GI for possible intervention - follow CBC - depending on symptoms threshold for transfusion hemoglobin above 7 # liver cirrhosis with worsened transaminitis - patient has chronic elevated LFTs that have wrosened today, - will obtain ammonia level - treat the withdrawal - follow LFTs - consider lactulose once patient able to take p.o. # abdominal pain - no significant abnormality on CT abdomen, lipase negative, likely to be secondary to pancreatitis - pain control # alcohol abuse withdrawal - patient is having withdrawal symptoms actively - will start him on phenobarb - thiamine and folic acid supplement # mild PAULINE - most likely secondary to dehydration in the setting of a alcohol abuse as well as vomiting - will start him IV fluids - follow BMP # diabetes - hold oral meds - low-dose sliding scale insulin - diabetic diet # hypothyroidism - continue levothyroxine # bipolar disorder - continue lithium DVT prophylaxis: SCDs in the setting of hematemesis Quality Stroke Does the patient have a stroke diagnosis?: No VTE Prior VTE?: No VTE Risk Level:: Medical - moderate - high VTE Device Contraindication: N/A - Device Ordered VTE Drug Contraindication: Treatment Not Indicated
[2020-09-26 07:14] LABS: Glucose, Whole Blood 187 mg/dL (60-115)
[2020-09-26 08:09] LABS: Ammonia 73 umol/L (13-55)
[2020-09-26] MEDS: Pantoprazole Sodium 40 MG/10 ML VIAL IVPUSH ×2 (08:17→16:23)
[2020-09-26] MEDS: Lactated Ringers 1,000 ML 100 ML IVCONT (08:17)
[2020-09-26] MEDS: 0.9 % Sodium Chloride Flush 3 ML SYRINGE IVFLUSH ×3 (08:18→21:38)
[2020-09-26] MEDS: Octreotide Acetate 500 MCG in 0.9 % Sodium Chloride 500 ML 50.1 MCG IVCONT ×2 (09:44→20:57)
[2020-09-26 11:06] LABS: Glucose, Whole Blood 157 mg/dL (60-115)
[2020-09-26 14:13] LABS: Hematocrit 27.2 % (42-52); Hemoglobin 8.8 g/dl (14.0-18.0)
--- NOTE | 2020-09-26 15:29 | P.PNIM_ITS ---
Subjective Subjective Date of Service: 09/26/20 Interval History: no abd pain no further coffee-ground emesis or black stools no prior EGD suprapubic discomfort Physical Exam Vital Signs: Vital Signs: Last Vital Signs Temp 98.2 F 09/26/20 15:13 Pulse 80 09/26/20 15:13 Resp 16 09/26/20 15:13 BP 98/52 L 09/26/20 15:13 Pulse Ox 96 09/26/20 15:13 Body Mass Index 28.1 Gen: in no acute distress HEENT: sclera anicteric, moist mucus membranes Neck: supple Lungs: clear to auscultation bilaterally Heart: regular rate and rhythm, no murmurs Abd: soft, distended lower abdomen Ext: no edema Skin: warm/well-perfused Neuro: alert and oriented x3, asterixis present Psych: appropriate affect Objective Data Current Medications Generic Name Dose Route Start Last Admin Trade Name Freq PRN Reason Stop Dose Admin Acetaminophen 650 mg 09/26/20 05:36 Acetaminophen 325 Mg Tablet PO Q6H PRN Pain, Mild (Pain Scale 1-3) Atorvastatin Calcium 20 mg 09/26/20 21:00 Atorvastatin Calcium 20 Mg Tablet PO BEDTIME [place] Benztropine Mesylate 0.5 mg 09/26/20 09:00 09/26/20 08:21 Benztropine Mesylate 0.5 Mg Tablet PO Not Given DAILY [place] Docusate Sodium 100 mg 09/26/20 05:36 Docusate Sodium 100 Mg Capsule PO DAILY PRN Constipation Folic Acid 1 mg 09/26/20 09:00 09/26/20 09:43 Folic Acid 1 Mg/0.2 Ml Syringe IM 1 mg DAILY [place] Administration Pantoprazole Sodium 80 mg/ 100 mls @ 10 mls/hr 09/26/20 00:30 09/26/20 03:36 Sodium Chloride IV 0 mg/hr .Q10H [place] 0 mls/hr Infusion 8 MG/HR Lactated Ringer's 1,000 mls @ 100 mls/hr 09/26/20 06:30 09/26/20 08:17 Lr IVCONT 100 mls/hr .Q10H [place] Administration Octreotide Acetate 500 mcg/ 501 mls @ 50.1 mls/hr 09/26/20 09:00 09/26/20 09:44 Sodium Chloride IVCONT 50 mcg/hr .Q10H [place] 50.1 mls/hr Administration 50 MCG/HR Insulin Glargine 48 unit 09/26/20 21:00 Insulin Glargine,Hum.Rec.Anlog 100 Unit/Ml 10 Ml Vial SUBCUT BEDTIME [facility] Insulin Human Lispro 0 unit 09/26/20 07:30 09/26/20 11:24 Insulin Lispro 100 Unit/Ml 3 Ml Vial SUBCUT Not Given QIDACHS [facility] Protocol Lactulose 30 gm 09/26/20 15:00 Lactulose 20 Gm/30 Ml Solution PO TID [facility] Levothyroxine Sodium 112 mcg 09/27/20 06:00 Levothyroxine Sodium 112 Mcg Tablet PO DAILY@0600 [facility] Levothyroxine Sodium 25 mcg 09/27/20 06:00 Levothyroxine Sodium 25 Mcg Tablet PO DAILY@0600 [facility] Yale Carbonate 300 mg 09/26/20 09:00 09/26/20 08:22 [place] Carbonate 300 Mg Capsule PO Not Given DAILY [facility] [place] Carbonate 600 mg 09/26/20 21:00 [place] Carbonate 300 Mg Capsule PO BEDTIME [facility] Medication 1 each 09/26/20 09:00 No Benzodiazepines MISCELLANE DAILY [facility] Mirtazapine 45 mg 09/26/20 21:00 Mirtazapine 15 Mg Tablet PO BEDTIME [facility] Ondansetron HCl 4 mg 09/26/20 05:36 Ondansetron Hcl 4 Mg/2 Ml Vial IVPUSH Q8H PRN Nausea and Vomiting Pantoprazole Sodium 40 mg 09/26/20 06:30 09/26/20 08:17 Pantoprazole Sodium 40 Mg/10 Ml Vial IVPUSH 40 mg BID@0630,1630 [facility] Administration Phenobarbital 45 mg 09/26/20 21:00 Phenobarbital 15 Mg Tablet PO 09/28/20 09:01 BID [facility] Protocol Phenobarbital 15 mg 09/28/20 21:00 Phenobarbital 15 Mg Tablet PO 09/30/20 09:01 BID [facility] Phenobarbital 15 mg 10/01/20 09:00 Phenobarbital 15 Mg Tablet PO 10/02/20 09:01 DAILY [facility] Rifaximin 550 mg 09/26/20 10:00 09/26/20 10:11 Rifaximin 550 Mg Tablet PO Not Given BID [facility] Risperidone 2 mg 09/26/20 21:00 Risperidone 2 Mg Tablet PO BEDTIME [place] Sodium Chloride 3 ml 09/26/20 08:00 09/26/20 08:18 0.9 % Sodium Chloride Flush 3 Ml Syringe IVFLUSH 3 ml QSHIFT [place] Administration Tamsulosin HCl 0.8 mg 09/26/20 21:00 Tamsulosin Hcl 0.4 Mg Capsule PO BEDTIME [place] Thiamine HCl 100 mg 09/26/20 09:00 09/26/20 08:22 Thiamine Hcl 100 Mg Tablet PO Not Given DAILY [place] Trazodone HCl 50 mg 09/26/20 06:36 Trazodone Hcl 50 Mg Tablet PO BEDTIME PRN insomnia Venlafaxine HCl 37.5 mg 09/26/20 09:00 09/26/20 08:22 Venlafaxine Hcl Er 37.5 Mg Cap.Er.24h PO Not Given DAILY [facility] Vitamin D 50 mcg 09/26/20 09:00 09/26/20 08:21 Cholecalciferol (Vitamin D3) 25 Mcg Tablet PO Not Given DAILY [facility] Labs CBC & Chem 7: 09/26/20 14:07 09/25/20 20:28 Labs: Laboratory Results - last 24 hr 09/25/20 09/25/20 09/25/20 20:28 20:28 20:28 WBC 15.7 H RBC 3.22 L D Hgb 10.9 L D Hct 31.4 L D MCV 97.5 MCH 33.9 H MCHC 34.7 RDW 16.5 H Plt Count 118 L D MPV 11.0 Immature Gran % (Auto) 1.0 H Neut % (Auto) 60.7 Lymph % (Auto) 16.7 L [place] % (Auto) 20.5 H Eos % (Auto) 0.7 Baso % (Auto) 0.4 Lymph # (Auto) 2.6 [place] # (Auto) 3.2 H Eos # (Auto) 0.1 Baso # (Auto) 0.1 Abs Immat Gran (auto) 0.15 H Absolute Neuts (auto) 9.5 H Absolute Nucleated RBC 0.020 H Nucleated RBC % (auto) 0.1 Smear Tech's Comments VERIFIED PT INR Sodium 137 Potassium 4.1 Chloride 102 Carbon Dioxide 21 L Anion Gap 18 BUN 33 H D Creatinine 1.20 Estim Creat Clear Calc 73.6 Estimated GFR > 60 POC Glucose Random Glucose 377 H* Calcium 9.8 Magnesium Total Bilirubin 1.4 H Direct Bilirubin 0.8 H AST 327 H ALT 392 H Alkaline Phosphatase 120 H D Ammonia Troponin I High Sens 5.3 Total Protein 7.9 Albumin 4.1 Lipase Urine Color Urine Appearance Urine pH Ur Specific [place] Urine Protein Urine Glucose (UA) Urine Ketones Urine Blood Urine Nitrite Ur Leukocyte Esterase Urine RBC Urine WBC Ur Squamous Epith Cells Urine Bacteria Stool Occult Blood COVID-19 (ARTEMIO) COVID-19 [facility] Com Blood Type Antibody Screen 09/25/20 09/25/20 09/25/20 20:28 20:28 22:13 WBC RBC Hgb Hct MCV MCH MCHC RDW Plt Count MPV Immature Gran % (Auto) Neut % (Auto) Lymph % (Auto) [place] % (Auto) Eos % (Auto) Baso % (Auto) Lymph # (Auto) [place] # (Auto) Eos # (Auto) Baso # (Auto) Abs Immat Gran (auto) Absolute Neuts (auto) Absolute Nucleated RBC Nucleated RBC % (auto) Smear Tech's Comments PT 18.2 H INR 1.5 H Sodium Potassium Chloride Carbon Dioxide Anion Gap BUN Creatinine Estim Creat Clear Calc Estimated GFR POC Glucose Random Glucose Calcium Magnesium 2.6 Total Bilirubin Direct Bilirubin AST ALT Alkaline Phosphatase Ammonia Troponin I High Sens Total Protein Albumin Lipase 66 Urine Color YELLOW Urine Appearance CLEAR Urine pH 6.0 Ur Specific [place] <= 1.005 Urine Protein NEG Urine Glucose (UA) >=1000 H Urine Ketones 15 Urine Blood NEG Urine Nitrite NEG Ur Leukocyte Esterase NEG Urine RBC 0-2 Urine WBC 0 Ur Squamous Epith Cells NONE Urine Bacteria NONE Stool Occult Blood COVID-19 (ARTEMIO) COVID-19 [facility] Blood Type Antibody Screen 09/25/20 09/26/20 09/26/20 23:33 00:27 00:27 WBC RBC Hgb Hct MCV MCH MCHC RDW Plt Count MPV Immature Gran % (Auto) Neut % (Auto) Lymph % (Auto) [place] % (Auto) Eos % (Auto) Baso % (Auto) Lymph # (Auto) [place] # (Auto) Eos # (Auto) Baso # (Auto) Abs Immat Gran (auto) Absolute Neuts (auto) Absolute Nucleated RBC Nucleated RBC % (auto) Smear Tech's Comments PT INR Sodium Potassium Chloride Carbon Dioxide Anion Gap BUN Creatinine Estim Creat Clear Calc Estimated GFR POC Glucose 216 H Random Glucose Calcium Magnesium Total Bilirubin Direct Bilirubin AST ALT Alkaline Phosphatase Ammonia Troponin I High Sens Total Protein Albumin Lipase Urine Color Urine Appearance Urine pH Ur Specific [place] Urine Protein Urine Glucose (UA) Urine Ketones Urine Blood Urine Nitrite Ur Leukocyte Esterase Urine RBC Urine WBC Ur Squamous Epith Cells Urine Bacteria Stool Occult Blood POSITIVE COVID-19 (ARTEMIO) COVID-19 Clin Com Blood Type A Positive Antibody Screen NEGATIVE 09/26/20 09/26/20 09/26/20 01:07 06:00 07:06 WBC RBC Hgb Hct MCV MCH MCHC RDW Plt Count MPV Immature Gran % (Auto) Neut % (Auto) Lymph % (Auto) [place] % (Auto) Eos % (Auto) Baso % (Auto) Lymph # (Auto) [place] # (Auto) Eos # (Auto) Baso # (Auto) Abs Immat Gran (auto) Absolute Neuts (auto) Absolute Nucleated RBC Nucleated RBC % (auto) Smear Tech's Comments PT INR Sodium Potassium Chloride Carbon Dioxide Anion Gap BUN Creatinine Estim Creat Clear Calc Estimated GFR POC Glucose 175 H 187 H Random Glucose Calcium Magnesium Total Bilirubin Direct Bilirubin AST ALT Alkaline Phosphatase Ammonia Troponin I High Sens Total Protein Albumin Lipase Urine Color Urine Appearance Urine pH Ur Specific [place] Urine Protein Urine Glucose (UA) Urine Ketones Urine Blood Urine Nitrite Ur Leukocyte Esterase Urine RBC Urine WBC Ur Squamous Epith Cells Urine Bacteria Stool Occult Blood COVID-19 (ARTEMIO) Negative COVID-19 Clin Com See Note Blood Type Antibody Screen 09/26/20 09/26/20 09/26/20 07:21 10:57 14:07 WBC RBC Hgb 8.8 L Hct 27.2 L MCV MCH MCHC RDW Plt Count MPV Immature Gran % (Auto) Neut % (Auto) Lymph % (Auto) [place] % (Auto) Eos % (Auto) Baso % (Auto) Lymph # (Auto) [place] # (Auto) Eos # (Auto) Baso # (Auto) Abs Immat Gran (auto) Absolute Neuts (auto) Absolute Nucleated RBC Nucleated RBC % (auto) Smear Tech's Comments PT INR Sodium Potassium Chloride Carbon Dioxide Anion Gap BUN Creatinine Estim Creat Clear Calc Estimated GFR POC Glucose 157 H Random Glucose Calcium Magnesium Total Bilirubin Direct Bilirubin AST ALT Alkaline Phosphatase Ammonia 73 H Troponin I High Sens Total Protein Albumin Lipase Urine Color Urine Appearance Urine pH Ur Specific [place] Urine Protein Urine Glucose (UA) Urine Ketones Urine Blood Urine Nitrite Ur Leukocyte Esterase Urine RBC Urine WBC Ur Squamous Epith Cells Urine Bacteria Stool Occult Blood COVID-19 (ARTEMIO) COVID-19 Clin Com Blood Type Antibody Screen ITS Impressions Abdomen/Pelvis CT 09/25/20 20:01 IMPRESSION: Main acute finding of note is marked dilatation of the bladder extending up above the level of the umbilicus. There is associated hydronephrosis and hydroureter with dilatation of both renal collecting systems. This is new from the prior study. There is a suggestion of a possible TURP defect within the prostate. This could be clinically correlated. Nodular cirrhotic liver with innumerable subcentimeter hypodensities but no discrete or dominant mass lesion. Sequela of portal hypertension as described above. Chest X-Ray 09/26/20 00:31 IMPRESSION: Unremarkable examination. Quality Stroke Does the patient have a stroke diagnosis?: No VTE Prior VTE?: No VTE Risk Level:: Medical - moderate - high VTE Device Contraindication: N/A - Device Ordered VTE Drug Contraindication: Treatment Not Indicated Assessment and Plan (1) Alcohol abuse with withdrawal: Status: Acute (2) Coffee ground emesis: Status: Acute Assessment and Plan: hospital d#1 50yo M with PMHx EtOH abuse, bipolar depression, DM2, hepatic cirrhosis, dyslipidemia, hypothyroidism presented with 3d of coffee-ground emesis, 10d of melena admitted for UGIB + bladder dilation # acute blood loss anemia due to suspected UGIB - NPO, T+S active, IV PPI, octreotide gtt, GI consult for EGD; trend H+H # bladder dilation/obstructive uropathy - Del Castillo placement, Urology consult # EtOH hepatitis - MDF 25, no steroids or pentoxifylline indicated - monitor LFTs # EtOH encephalopathy - lactulose + rifaximin # EtOH withdrawal - phenobarbital taper, thiamine + folate supplements # PAULINE - suspect obstructive, place Del Castillo and repeat BMP in am # DM2 - basal/bolus insulin # hypothyroidism - continue LT4 # bipolar depression - continue mirtapazine, risperidone, lithium # EtOH use disorder - CARE team consultation # VTE ppx - SCDs, no heparin given GIB
--- NOTE | 2020-09-26 15:37 | MHC.CM.PN ---
Met with patient. Went over IMM. Lives alone, independent function,. Has nurse visits for medications, but can't recall name of agency. Assisted patient in completing HCP, he chose his daughter, Eleni. Gave original and copies to patient and placed a copy in the chart. Call to Eleni, she will find ut name of nursing agency and all tomorrow. Anticipate home with resumption of current services.
[2020-09-26 15:56] LABS: Glucose, Whole Blood 263 mg/dL (60-115)
--- NOTE | 2020-09-26 16:02 | MHC.CARE ---
CARE team consult received for 50 year old male who, per hospitalist documentation, [place] [facility] [place] secondary to vomitting blood/coffee ground emesis. Pt is being treated for an upper GI bleed, alcohol withdrawal, and possible pancreatitis. Pt has been started on phenobarbital protocol, per JUN. Due to the likelihood that pt will be feeling quite ill and unpleasant for the first few days of his admission, CARE team will follow up with the floor nurse and/or hospitalist on Thursday 09/28 to discuss how pt is doing and if he is able to productively engage in a conversation about his alcohol use.
[2020-09-26] MEDS: Lactulose 20 GM/30 ML SOLUTION 30 GM PO ×2 (16:22→20:59)
[2020-09-26] MEDS: Insulin Lispro 100 UNIT/ML 3 ML VIAL SUBCUT ×2 (16:22→20:56)
--- NOTE | 2020-09-26 18:19 | PC.NURSE ---
Patient's family here to visit, questioning NPO status. Gave patient mountain dew regardless of education provided by this RN. Reached out to construction equipment overhauler who spoke to hospitalist who agree to postpone EGD to Monday. Patient upgraded to clear liquid diet. Del Castillo catheter inserted per urologist recommendation, draining clear, straw urine. Patient OOB to recliner for majority of the day. Seizure precautions in place. No complaints, no complications.
[2020-09-26 20:29] LABS: Hematocrit 27.9 % (42-52); Hemoglobin 9.1 g/dl (14.0-18.0)
[2020-09-26 20:49] LABS: Glucose, Whole Blood 432 mg/dL (60-115)
[2020-09-26 20:49] LABS: Glucose, Whole Blood 445 mg/dL (60-115)
[2020-09-26] MEDS: Insulin Glargine,Hum.rec.anlog 100 UNIT/ML 10 ML VIAL 48 UNIT SUBCUT (20:57)
[2020-09-26] MEDS: Mirtazapine 15 MG TABLET 45 MG PO (20:58)
[2020-09-26] MEDS: risperiDONE 2 MG TABLET PO (20:58)
[2020-09-26] MEDS: PHENobarbitaL 15 MG TABLET 45 MG PO (20:58)
[2020-09-26] MEDS: Tamsulosin HCL 0.4 MG CAPSULE 0.8 MG PO (20:58)
[2020-09-26] MEDS: rifAXIMin 550 MG TABLET PO (20:58)
[2020-09-26] MEDS: Atorvastatin Calcium 20 MG TABLET PO (20:59)
[2020-09-26] MEDS: Lithium Carbonate 300 MG CAPSULE 600 MG PO (20:59)
[2020-09-26] MEDS: Lactated Ringers 1,000 ML 999 ML IV (21:28)
[2020-09-26] MEDS: Insulin Lispro 100 UNIT/ML 3 ML VIAL 10 UNIT SUBCUT (21:28)
[2020-09-26 22:05] LABS: Glucose, Whole Blood 380 mg/dL (60-115)
[2020-09-26 22:06] LABS: Anion Gap 17 (12-20); Blood Urea Nitrogen 18 mg/dL (9-16); Calcium 7.9 mg/dL (8.4-10.2); Carbon Dioxide 18 mmol/L (22-29); Chloride 104 mmol/L (96-108); Creatinine Clr Calc Pharmacy 69.5; Estimated Glomerular Filt Rate 60; Glucose Random 492 mg/dL (60-115); Sodium 135 mmol/L (135-145)
[2020-09-26 22:59] LABS: Glucose, Whole Blood 282 mg/dL (60-115)
[2020-09-27 03:22] VITALS: BP 135/68; PULSE 91; RESP 16; TEMP 36.9; O2SAT 95
[2020-09-27 04:12] LABS: Glucose, Whole Blood 133 mg/dL (60-115)
--- NOTE | 2020-09-27 04:12 | MHC.PIE ---
p - pt impulsive and oob with alarm sounding. tangled in iv with r arm iv dislodged and f/c with scant amt of blood at insertion site i - cleaned. oob to recliner & bed changed. new #22 iv to L h. LR @ 100ml/h & Octreotide at 50mcg/h infusing as ordered. chair alarm applied and avasys camera in room - pt educated on fall risk, camera, chair alarm & ring for assist, as well as hourly rounds, verbalizes understanding but needs reinforcement. e - will continue to monitor
[2020-09-27] MEDS: Lactated Ringers 1,000 ML 100 ML IVCONT ×2 (05:26→16:49)
[2020-09-27] MEDS: Levothyroxine Sodium 112 MCG TABLET PO (05:27)
[2020-09-27] MEDS: Levothyroxine Sodium 25 MCG TABLET PO (05:27)
[2020-09-27] MEDS: Pantoprazole Sodium 40 MG/10 ML VIAL IVPUSH (05:27)
--- NOTE | 2020-09-27 05:31 | P.CNGI_ITS ---
History of Present Illness Data of Consult Service Date: 09/27/20 Requesting physician: Daphne Vigil Primary Care Provider: Dakota Reilly MD HPI Reason for consult: anemia 50-year-old male with a past medical history of alcohol abuse, bipolar depression, diabetes, liver cirrhosis, dyslipidemia, hypothyroidism, and lap patrick who I am seeing for assessment for acute blood loss anemia. He presented with hematemesis for 3 d prior to admission along with RLQ pain which felt like cramps as well as chest discomfort whcih was stabbing in nature. He denied melena to me but was noted to mention it on the H/P, said he hasn;t passed stool for days.. He continues to drink 6 pack beer daily for 10 yrs or so at least. Not taking NSAIDS. He denies urine symptoms. No fevers or chills Known to have hx of cirrhosis attributed to alcohol No EGD on file, colonoscopy 2018 with polyps removed Today he feels better, minmal nausea, no further vomiting, no pain. LABS on admission: WBC: 15.7, hemoglobin: 10.9 (Prior had been 15.3) hematocrit 31.04, PT of 18.2, INR of 1.5, BUN; 33, creatinine of 1.2 with a baseline around 0.9, total bili: 1.4, AST of 327, ALT of 392, alk-phos: 120, UA -positive for glucose, stool occult blood positive, negative for COVID Repeat Labs with HGB stabilizing around 9 g/dl. Imaging: Dilatated bladder extending up above the level of the umbilicus, associated hydronephrosis and hydroureter with dilatation of both renal collecting systems, suggestion of a possible TURP defect within the prostate, nodular cirrhotic liver with innumerable subcentimeter hypodensities but no discrete or dominant mass lesion. Portal hypertension. Review of Systems Review of Systems: Constitutional : No Weight loss, No Fever, No Chills ENT/Mouth : No sore throat, No Rhinorrhea Eyes: No Eye Pain, No Swelling Cardiovascular : No Chest Pain, no palpitations Respiratory : No Cough, No Sputum, no shortness of breath Gastrointestinal : +Nausea, + Vomiting, No Diarrhea, + abdominal Pain, Genitourinary : No Dysuria, No Urinary Frequency Musculoskeletal : No joint pain, No Myalgias, No Joint Swelling Skin : No Skin Lesions, No rash Neuro : No Weakness, No Numbness, No Dizziness, No Headache Psych : No Anxiety/Panic, No Depression Heme/Lymph: No Bruising, No Lymphadenopathy Endocrine : No Polyuria, No Polydipsia All other systems reviewed and are negative Yes all other systems are reviewed and are negative [facility] Past Medical History Medical History Abnormal liver function test Bipolar depression Bipolar disorder BPH (benign prostatic hyperplasia) Cirrhosis Diabetes Diabetes mellitus type 2, uncontrolled Diabetes type 2, uncontrolled Diabetic nephropathy associated with type 2 diabetes mellitus Dyslipidemia Elevated LFTs Hypothyroidism 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, urine snf (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 of insulin Obesity (BMI 30-39.9) Postablative hypothyroidism Pure hypercholesterolemia Scrotal wall abscess Urinary retention Vitamin D deficiency Family History Family History Father Diabetes Mother Diabetes Maternal Aunt Family history of thyroid problem Surgical History Surgical History History of arthroscopy of left knee History of laparoscopic cholecystectomy Hx of colonoscopy Social History Social History Household Members: None Housing: House Do you presently have visiting nurse or other home services: Yes Alcohol intake: current Alcohol intake frequency: a few times a week Patient Tobacco Use Status: Never used Tobacco Use of substances other than those prescribed or required for medical reasons: No Currently Displaying Signs/Symptoms of Drug Intoxication Withdrawal: No Have you been hit, kicked, punched, or otherwise hurt by someone within the past year? If so, by whom?: No Do you feel safe in your current relationship?: No Current Relationship Is there a partner from a previous relationship who is making you feel unsafe now?: No Are you made to feel afraid or neglected: No Spiritual Healthcare Practices: no Jehovah'S Witness Healthcare Practices: no Cultural Healthcare Practices: no Advance Directives: No Advance Directives Information Provided: No Do you have thoughts of harming others: None Do you have a plan to hurt others: No Plan Recently lost weight without trying: No Nutrition Risks: No Nutritional Risk Poor oral hygiene: No service: No Current occupational status: unemployed Meds Allergies Allergy/AdvReac Type Severity Reaction Status Date / Time No Known Allergies Allergy Verified 09/26/20 00:22 [No Known Allergies*] Active Medications: Current Medications Generic Name Dose Route Start Last Admin Trade Name Mic PRN Reason Stop Dose Admin Acetaminophen 650 mg 09/26/20 05:36 Acetaminophen 325 Mg Tablet PO Q6H PRN Pain, Mild (Pain Scale 1-3) Atorvastatin Calcium 20 mg 09/26/20 21:00 09/26/20 20:59 Atorvastatin Calcium 20 Mg Tablet PO 20 mg BEDTIME [facility] Administration Benztropine Mesylate 0.5 mg 09/26/20 09:00 09/26/20 08:21 Benztropine Mesylate 0.5 Mg Tablet PO Not Given DAILY [facility] Docusate Sodium 100 mg 09/26/20 05:36 Docusate Sodium 100 Mg Capsule PO DAILY PRN Constipation Folic Acid 1 mg 09/26/20 09:00 09/26/20 09:43 Folic Acid 1 Mg/0.2 Ml Syringe IM 1 mg DAILY [facility] Administration Pantoprazole Sodium 80 mg/ 100 mls @ 10 mls/hr 09/26/20 00:30 09/26/20 03:36 Sodium Chloride IV 0 mg/hr .Q10H [place] 0 mls/hr Infusion 8 MG/HR Lactated Ringer's 1,000 mls @ 100 mls/hr 09/26/20 06:30 09/27/20 05:26 Lr IVCONT 100 mls/hr .Q10H [place] Administration Octreotide Acetate 500 mcg/ 501 mls @ 50.1 mls/hr 09/26/20 09:00 09/26/20 20:57 Sodium Chloride IVCONT 50 mcg/hr .Q10H [place] 50.1 mls/hr Administration 50 MCG/HR Insulin Glargine 48 unit 09/26/20 21:00 09/26/20 20:57 Insulin Glargine,Hum.Rec.Anlog 100 Unit/Ml 10 Ml Vial SUBCUT 48 unit BEDTIME [facility] Administration Insulin Human Lispro 0 unit 09/26/20 07:30 09/26/20 20:56 Insulin Lispro 100 Unit/Ml 3 Ml Vial SUBCUT 10 unit QIDACHS [place] Administration Protocol Lactulose 30 gm 09/26/20 15:00 09/26/20 20:59 Lactulose 20 Gm/30 Ml Solution PO 30 gm TID [place] Administration Levothyroxine Sodium 112 mcg 06/20/21 06:00 09/27/20 05:27 Levothyroxine Sodium 112 Mcg Tablet PO 112 mcg DAILY@0600 [facility] Administration Levothyroxine Sodium 25 mcg 09/27/20 06:00 09/27/20 05:27 Levothyroxine Sodium 25 Mcg Tablet PO 25 mcg DAILY@0600 [place] Administration [place] Carbonate 300 mg 09/26/20 09:00 09/26/20 08:22 [place] Carbonate 300 Mg Capsule PO Not Given DAILY [place] Carbonate 600 mg 09/26/20 21:00 09/26/20 20:59 [place] Carbonate 300 Mg Capsule PO 600 mg BEDTIME [facility] Administration Medication 1 each 09/26/20 09:00 No Benzodiazepines MISCELLANE DAILY [facility] Mirtazapine 45 mg 09/26/20 21:00 09/26/20 20:58 Mirtazapine 15 Mg Tablet PO 45 mg BEDTIME [place] Administration Ondansetron HCl 4 mg 09/26/20 05:36 Ondansetron Hcl 4 Mg/2 Ml Vial IVPUSH Q8H PRN Nausea and Vomiting Pantoprazole Sodium 40 mg 09/26/20 06:30 09/27/20 05:27 Pantoprazole Sodium 40 Mg/10 Ml Vial IVPUSH 40 mg BID@0630,1630 [facility] Administration Phenobarbital 45 mg 09/26/20 21:00 09/26/20 20:58 Phenobarbital 15 Mg Tablet PO 09/28/20 09:01 45 mg BID [place] Administration Protocol Phenobarbital 15 mg 09/28/20 21:00 Phenobarbital 15 Mg Tablet PO 09/30/20 09:01 BID [place] Phenobarbital 15 mg 10/01/20 09:00 Phenobarbital 15 Mg Tablet PO 10/02/20 09:01 DAILY [facility] Rifaximin 550 mg 09/26/20 10:00 09/26/20 20:58 Rifaximin 550 Mg Tablet PO 550 mg BID [place] Administration Risperidone 2 mg 09/26/20 21:00 09/26/20 20:58 Risperidone 2 Mg Tablet PO 2 mg BEDTIME [place] Administration Sodium Chloride 3 ml 09/26/20 08:00 09/26/20 21:38 0.9 % Sodium Chloride Flush 3 Ml Syringe IVFLUSH 3 ml QSHIFT [place] Administration Tamsulosin HCl 0.8 mg 09/26/20 21:00 09/26/20 20:58 Tamsulosin Hcl 0.4 Mg Capsule PO 0.8 mg BEDTIME [place] Administration Thiamine HCl 100 mg 09/26/20 09:00 09/26/20 08:22 Thiamine Hcl 100 Mg Tablet PO Not Given DAILY [facility] Trazodone HCl 50 mg 09/26/20 06:36 Trazodone Hcl 50 Mg Tablet PO BEDTIME PRN insomnia Venlafaxine HCl 37.5 mg 09/26/20 09:00 09/26/20 08:22 Venlafaxine Hcl Er 37.5 Mg Cap.Er.24h PO Not Given DAILY [facility] Vitamin D 50 mcg 09/26/20 09:00 09/26/20 08:21 Cholecalciferol (Vitamin D3) 25 Mcg Tablet PO Not Given DAILY [facility] Home Medications Medication Instructions Recorded Confirmed Last Taken Type benztropine 0.5 mg tablet 0.5 mg PO DAILY 02/14/20 09/26/20 Unknown History clonazepam 1 mg tablet 1 mg PO BID PRN 02/14/20 09/26/20 Unknown History mirtazapine 45 mg tablet 45 mg PO BEDTIME 02/14/20 09/26/20 Unknown History risperidone 2 mg tablet 2 mg PO BEDTIME 02/14/20 09/26/20 Unknown History lithium carbonate 300 mg tablet See Rx Instructions PO .COMPLEX 04/17/20 09/26/20 Unknown History trazodone 50 mg tablet See Rx Instructions PO BEDTIME PRN 04/17/20 09/26/20 Unknown History tab venlafaxine 1 cap PO DAILY 09/26/20 09/26/20 Unknown History Physical Exam Vital Signs: Vital Signs: Last Vital Signs Temp 98.4 F 09/27/20 03:22 Pulse 91 09/27/20 03:22 Resp 16 09/27/20 03:22 BP 135/68 09/27/20 03:22 Pulse Ox 95 09/27/20 03:22 Body Mass Index 28.1 Const: General: cooperative and no acute distress Orientation/consciousness: patient oriented x3 HENMT: Head: Yes normal to inspection Eyes: General: appearance normal, both eyes and all related structures Resp: Effort & Inspection: normal respiratory effort and able to speak in complete sentences Cardio: Rate: regular rate Rhythm: regular rhythm GI: Other: No rebound or guarding Palpation (GI): Soft to palpation Auscultation: normal bowel sounds Skin: General skin exam: no rashes or lesions noted Neuro: General: patient oriented x3 Cognition (Neuro): normal cognition Extrem: General: Yes normal to inspection and Yes no pedal edema Psych: Appearance: grossly normal Results Labs CBC & Chem 7: 09/27/20 05:47 09/27/20 05:47 Labs: Short CBC 09/26/20 09/26/20 Range/Units 14:07 19:59 Hgb 8.8 L 9.1 L (14.0-18.0) g/dl Hct 27.2 L 27.9 L (42-52) % BMP 09/26/20 21:30 Sodium 135 Potassium 4.0 Chloride 104 Carbon Dioxide 18 L BUN 18 H Creatinine 1.27 Calcium 7.9 L D Assessment and Plan (1) Alcohol abuse with withdrawal: Status: Acute (2) Coffee ground emesis: Status: Acute (3) Acute upper gastrointestinal bleeding: Status: Acute (4) Anemia: Qualifiers: Anemia type: other cause Other causes of anemia: other cause, not classified Qualified Code(s): D64.89 - Other specified anemias Status: Acute (5) Urinary retention: Status: Acute (6) Cirrhosis: Status: Acute 1/ Suspected alcohol related cirrhosis with acute blood loss anemia, currently stable with no overt GI losses, and stable vitals.ddx-alcoholic gastritis, esophagitis, varices, PUD PLAN: 1/ can allow soft diet if tolerated and NPO after midnight 2/ EGD tomorrow 3/ cont with octreotide and PPI 4/ 5 d of 1 g ceftriaxone reduce risk of infections from bacterial translocation 5/ alcohol withdrawal protocol and vitamins as doing. 6/ counselled on alcohol abstinence, risks to future health, etc-he wants to give it a go and change his life-hopefully he can do it 7/ f/u urology for hydronephrosis, may have played a role in his nausea, check PSA Procedures Date of Service Date of Service: 09/27/20
[2020-09-27 06:27] LABS: MANUAL DIFF FLAG NO
[2020-09-27 06:33] LABS: Basophils Percent Auto 0.5 % (0-2); Eosinophils Absolute Auto 0.1 X10*3/uL (0.0-0.4); Eosinophils Percent Auto 1.7 % (0-4); Hemoglobin 8.7 g/dl (14.0-18.0); Imm Gran Abs Auto 0.06 X10*3/uL (0.00-0.03); Imm Gran Pct Auto 0.8 % (0.0-0.4); Lymphocytes Absolute Auto 1.7 X10*3/uL (1.2-4.9); Lymphocytes Percent Auto 21.6 % (20-40); Mean Corpuscular HGB Conc 33.5 g/dl (31.0-36.0); Mean Corpuscular Hemoglobin 32.6 pg (27.0-33.0); Mean Corpuscular Volume 97.4 fL (80-98); Mean Platelet Volume 11.1 fL (9.4-12.4); Monocytes Absolute Auto 1.5 X10*3/uL (0.1-1.2); Monocytes Percent Auto 19.4 % (2-11); NRBC Pct Auto 0.3 /100WBC (0.0-0.2); Neutrophils Absolute Auto 4.3 X10*3/uL (2.0-8.3); Red Blood Count 2.67 X10*6/uL (4.60-5.80); Red Cell Distribution Width 15.9 % (11.0-16.0); White Blood Count 7.7 X10*3/uL (4.8-10.8)
[2020-09-27 06:35] LABS: Platelet Count 80 X10*3/uL (160-400)
[2020-09-27 06:40] LABS: INTERNATIONAL NORM RATIO 1.5 (0.9-1.1); Prothrombin Time 17.5 SEC (10.8-13.0)
[2020-09-27 07:07] LABS: Alanine Aminotransferase 280 U/L (0-40); Albumin Level 3.1 g/dL (3.5-5.0); Alkaline Phosphatase 89 U/L (39-117); Anion Gap 12 (12-20); Aspartate Amino Transferase 232 U/L (5-37); Bilirubin Direct 0.6 mg/dL (0.0-0.5); Bilirubin Total 0.9 mg/dL (0.0-1.0); Blood Urea Nitrogen 14 mg/dL (9-16); Calcium 7.8 mg/dL (8.4-10.2); Carbon Dioxide 24 mmol/L (22-29); Chloride 110 mmol/L (96-108); Creatinine Clr Calc Pharmacy 106.4; Estimated Glomerular Filt Rate > 60; Glucose Random 133 mg/dL (60-115); Magnesium 2.1 mg/dL (1.6-2.6); Potassium 3.5 mmol/L (3.3-5.1); Sodium 142 mmol/L (135-145); Total Protein 5.8 g/dL (6.5-8.0)
[2020-09-27 07:35] LABS: Glucose, Whole Blood 143 mg/dL (60-115)
[2020-09-27 07:50] VITALS: BP 104/56; PULSE 97; RESP 20; TEMP 36.8; O2SAT 94
[2020-09-27] MEDS: Lactulose 20 GM/30 ML SOLUTION 30 GM PO ×2 (08:38→14:15)
[2020-09-27] MEDS: Cholecalciferol (Vitamin D3) 25 MCG TABLET 50 MCG PO (08:40)
[2020-09-27] MEDS: Benztropine Mesylate 0.5 MG TABLET PO (08:40)
[2020-09-27] MEDS: PHENobarbitaL 15 MG TABLET 45 MG PO ×2 (08:41→21:00)
[2020-09-27] MEDS: Venlafaxine HCl ER 37.5 MG CAP.ER.24H PO (08:41)
[2020-09-27] MEDS: Octreotide Acetate 500 MCG in 0.9 % Sodium Chloride 500 ML 50.1 MCG IVCONT ×2 (08:44→15:39)
[2020-09-27] MEDS: Lithium Carbonate 300 MG CAPSULE PO (10:41)
[2020-09-27] MEDS: rifAXIMin 550 MG TABLET PO ×2 (10:41→21:00)
[2020-09-27] MEDS: Thiamine HCL 100 MG TABLET PO (10:41)
[2020-09-27 11:32] LABS: Glucose, Whole Blood 282 mg/dL (60-115)
--- NOTE | 2020-09-27 11:32 | MHC.RECOVSUP ---
Recovery Support note: This com writer met with patient in room 467-1 to discuss his alcohol use and treatment options. Patient reports that he is ready to stop drinking and that he does not want to live like this. Patient reports drinking several days of the week and that he drinks by himself. Patient reports no significant periods of sobriety. Patient reports he plans to start going to the gym to stay busy and active and to better his physical health. Patient reports he does not have any friends but he can reach out to his son or girlfriend for support, stating that neither of them drink. Patient appears motivated to stop drinking entirely and he does not anticipate any barriers to his recovery. Discussed AA and IOP with patient. Patient is receptive of these supports and reports he plans to attend AA meetings in [place]. This com writer provided patient with information on these supports. Patient also expressed interest in meeting with a Backend Java Developer and this com writer will introduce him to one later on elton. Discussed case with patient's RN.
[2020-09-27] MEDS: Insulin Lispro 100 UNIT/ML 3 ML VIAL SUBCUT ×3 (11:44→21:41)
[2020-09-27 12:00] VITALS: BP 110/68; PULSE 97; RESP 20; TEMP 37.6; O2SAT 95
--- NOTE | 2020-09-27 13:01 | P.PNIM_ITS ---
Subjective Subjective Date of Service: 09/27/20 Interval History: no further coffee-ground emesis no hematochezia or melena somewhat light-headed + anxious Physical Exam Vital Signs: Vital Signs: Last Vital Signs Temp 99.7 F 09/27/20 12:00 Pulse 97 09/27/20 12:00 Resp 20 09/27/20 12:00 BP 110/68 09/27/20 12:00 Pulse Ox 95 09/27/20 12:00 Body Mass Index 28.1 Gen: in no acute distress HEENT: sclera anicteric, moist mucus membranes Neck: supple Lungs: clear to auscultation bilaterally Heart: regular rate and rhythm, no murmurs Abd: soft, distended lower abdomen Ext: no edema Skin: warm/well-perfused Neuro: alert and oriented x3, asterixis present Psych: appropriate affect Objective Data Current Medications Generic Name Dose Route Start Last Admin Trade Name Freq PRN Reason Stop Dose Admin Acetaminophen 650 mg 09/26/20 05:36 Acetaminophen 325 Mg Tablet PO Q6H PRN Pain, Mild (Pain Scale 1-3) Atorvastatin Calcium 20 mg 09/26/20 21:00 09/26/20 20:59 Atorvastatin Calcium 20 Mg Tablet PO 20 mg BEDTIME [place] Administration Benztropine Mesylate 0.5 mg 09/26/20 09:00 09/27/20 08:40 Benztropine Mesylate 0.5 Mg Tablet PO 0.5 mg DAILY [facility] Administration Docusate Sodium 100 mg 09/26/20 05:36 Docusate Sodium 100 Mg Capsule PO DAILY PRN Constipation Folic Acid 1 mg 09/26/20 09:00 09/27/20 10:32 Folic Acid 1 Mg/0.2 Ml Syringe IM 1 mg DAILY [facility] Administration Pantoprazole Sodium 80 mg/ 100 mls @ 10 mls/hr 09/26/20 00:30 09/26/20 03:36 Sodium Chloride IV 0 mg/hr .Q10H [place] 0 mls/hr Infusion 8 MG/HR Lactated Ringer's 1,000 mls @ 100 mls/hr 09/26/20 06:30 09/27/20 05:26 Lr IVCONT 100 mls/hr .Q10H [place] Administration Octreotide Acetate 500 mcg/ 501 mls @ 50.1 mls/hr 09/26/20 09:00 09/27/20 08:44 Sodium Chloride IVCONT 50 mcg/hr .Q10H [place] 50.1 mls/hr Administration 50 MCG/HR Insulin Glargine 52 unit 09/27/20 21:00 Insulin Glargine,Hum.Rec.Anlog 100 Unit/Ml 10 Ml Vial SUBCUT BEDTIME [facility] Insulin Human Lispro 0 unit 09/26/20 07:30 09/27/20 11:44 Insulin Lispro 100 Unit/Ml 3 Ml Vial SUBCUT 8 unit QIDACHS [place] Administration Protocol Lactulose 30 gm 09/26/20 15:00 09/27/20 08:38 Lactulose 20 Gm/30 Ml Solution PO 30 gm TID [place] Administration Levothyroxine Sodium 112 mcg 09/27/20 06:00 09/27/20 05:27 Levothyroxine Sodium 112 Mcg Tablet PO 112 mcg DAILY@0600 [place] Administration Levothyroxine Sodium 25 mcg 09/27/20 06:00 09/27/20 05:27 Levothyroxine Sodium 25 Mcg Tablet PO 25 mcg DAILY@0600 [place] Administration [place] Carbonate 300 mg 09/26/20 09:00 09/27/20 10:41 [place] Carbonate 300 Mg Capsule PO 300 mg DAILY [place] Administration [place] Carbonate 600 mg 09/26/20 21:00 09/26/20 20:59 [place] Carbonate 300 Mg Capsule PO 600 mg BEDTIME [facility] Administration Medication 1 each 09/26/20 09:00 No Benzodiazepines MISCELLANE DAILY [facility] Mirtazapine 45 mg 09/26/20 21:00 09/26/20 20:58 Mirtazapine 15 Mg Tablet PO 45 mg BEDTIME [place] Administration Ondansetron HCl 4 mg 09/26/20 05:36 Ondansetron Hcl 4 Mg/2 Ml Vial IVPUSH Q8H PRN Nausea and Vomiting Pantoprazole Sodium 40 mg 09/26/20 06:30 09/27/20 05:27 Pantoprazole Sodium 40 Mg/10 Ml Vial IVPUSH 40 mg BID@0630,1630 [facility] Administration Phenobarbital 45 mg 09/26/20 21:00 09/27/20 08:41 Phenobarbital 15 Mg Tablet PO 09/28/20 09:01 45 mg BID [place] Administration Protocol Phenobarbital 15 mg 09/28/20 21:00 Phenobarbital 15 Mg Tablet PO 09/30/20 09:01 BID [place] Phenobarbital 15 mg 10/01/20 09:00 Phenobarbital 15 Mg Tablet PO 10/02/20 09:01 DAILY [facility] Rifaximin 550 mg 09/26/20 10:00 09/27/20 10:41 Rifaximin 550 Mg Tablet PO 550 mg BID [place] Administration Risperidone 2 mg 09/26/20 21:00 09/26/20 20:58 Risperidone 2 Mg Tablet PO 2 mg BEDTIME [place] Administration Sodium Chloride 3 ml 09/26/20 08:00 09/27/20 08:48 0.9 % Sodium Chloride Flush 3 Ml Syringe IVFLUSH Not Given QSHIFT [facility] Tamsulosin HCl 0.8 mg 09/26/20 21:00 09/26/20 20:58 Tamsulosin Hcl 0.4 Mg Capsule PO 0.8 mg BEDTIME [facility] Administration Thiamine HCl 100 mg 09/26/20 09:00 09/27/20 10:41 Thiamine Hcl 100 Mg Tablet PO 100 mg DAILY [facility] Administration Trazodone HCl 50 mg 09/26/20 06:36 Trazodone Hcl 50 Mg Tablet PO BEDTIME PRN insomnia Venlafaxine HCl 37.5 mg 09/26/20 09:00 09/27/20 08:41 Venlafaxine Hcl Er 37.5 Mg Cap.Er.24h PO 37.5 mg DAILY [facility] Administration Vitamin D 50 mcg 09/26/20 09:00 09/27/20 08:40 Cholecalciferol (Vitamin D3) 25 Mcg Tablet PO 50 mcg DAILY [facility] Administration Labs CBC & Chem 7: 09/27/20 05:47 09/27/20 05:47 Labs: Laboratory Results - last 24 hr 09/26/20 09/26/20 09/26/20 14:07 15:50 19:59 WBC RBC Hgb 8.8 L 9.1 L Hct 27.2 L 27.9 L MCV MCH MCHC RDW Plt Count MPV Immature Gran % (Auto) Neut % (Auto) Lymph % (Auto) [place] % (Auto) Eos % (Auto) Baso % (Auto) Lymph # (Auto) [place] # (Auto) Eos # (Auto) Baso # (Auto) Abs Immat Gran (auto) Absolute Neuts (auto) Absolute Nucleated RBC Nucleated RBC % (auto) PT INR Sodium Potassium Chloride Carbon Dioxide Anion Gap BUN Creatinine Estim Creat Clear Calc Estimated GFR POC Glucose 263 H Random Glucose Calcium Magnesium Total Bilirubin Direct Bilirubin AST ALT Alkaline Phosphatase Total Protein Albumin 09/26/20 09/26/20 09/26/20 20:33 20:36 21:30 WBC RBC Hgb Hct MCV MCH MCHC RDW Plt Count MPV Immature Gran % (Auto) Neut % (Auto) Lymph % (Auto) [place] % (Auto) Eos % (Auto) Baso % (Auto) Lymph # (Auto) [place] # (Auto) Eos # (Auto) Baso # (Auto) Abs Immat Gran (auto) Absolute Neuts (auto) Absolute Nucleated RBC Nucleated RBC % (auto) PT INR Sodium 135 Potassium 4.0 Chloride 104 Carbon Dioxide 18 L Anion Gap 17 BUN 18 H Creatinine 1.27 Estim Creat Clear Calc 69.5 Estimated GFR 60 POC Glucose 445 H* 432 H* Random Glucose 492 H* Calcium 7.9 L D Magnesium Total Bilirubin Direct Bilirubin AST ALT Alkaline Phosphatase Total Protein Albumin 09/26/20 09/26/20 09/27/20 22:00 22:55 04:08 WBC RBC Hgb Hct MCV MCH MCHC RDW Plt Count MPV Immature Gran % (Auto) Neut % (Auto) Lymph % (Auto) [place] % (Auto) Eos % (Auto) Baso % (Auto) Lymph # (Auto) [place] # (Auto) Eos # (Auto) Baso # (Auto) Abs Immat Gran (auto) Absolute Neuts (auto) Absolute Nucleated RBC Nucleated RBC % (auto) PT INR Sodium Potassium Chloride Carbon Dioxide Anion Gap BUN Creatinine Estim Creat Clear Calc Estimated GFR POC Glucose 380 H* 282 H 133 H Random Glucose Calcium Magnesium Total Bilirubin Direct Bilirubin AST ALT Alkaline Phosphatase Total Protein Albumin 09/27/20 09/27/20 09/27/20 05:47 05:47 05:47 WBC 7.7 RBC 2.67 L Hgb 8.7 L Hct 26.0 L MCV 97.4 MCH 32.6 MCHC 33.5 RDW 15.9 Plt Count 80 L D MPV 11.1 Immature Gran % (Auto) 0.8 H Neut % (Auto) 56.0 Lymph % (Auto) 21.6 [place] % (Auto) 19.4 H Eos % (Auto) 1.7 Baso % (Auto) 0.5 Lymph # (Auto) 1.7 [place] # (Auto) 1.5 H Eos # (Auto) 0.1 Baso # (Auto) 0.0 Abs Immat Gran (auto) 0.06 H Absolute Neuts (auto) 4.3 Absolute Nucleated RBC 0.020 H Nucleated RBC % (auto) 0.3 H PT 17.5 H INR 1.5 H Sodium 142 Potassium 3.5 Chloride 110 H Carbon Dioxide 24 Anion Gap 12 BUN 14 Creatinine 0.83 Estim Creat Clear Calc 106.4 Estimated GFR > 60 POC Glucose Random Glucose 133 H D Calcium 7.8 L Magnesium Total Bilirubin Direct Bilirubin AST ALT Alkaline Phosphatase Total Protein Albumin 09/27/20 09/27/20 09/27/20 05:47 07:10 11:00 WBC RBC Hgb Hct MCV MCH MCHC RDW Plt Count MPV Immature Gran % (Auto) Neut % (Auto) Lymph % (Auto) [place] % (Auto) Eos % (Auto) Baso % (Auto) Lymph # (Auto) [place] # (Auto) Eos # (Auto) Baso # (Auto) Abs Immat Gran (auto) Absolute Neuts (auto) Absolute Nucleated RBC Nucleated RBC % (auto) PT INR Sodium Potassium Chloride Carbon Dioxide Anion Gap BUN Creatinine Estim Creat Clear Calc Estimated GFR POC Glucose 143 H 282 H Random Glucose Calcium Magnesium 2.1 Total Bilirubin 0.9 Direct Bilirubin 0.6 H AST 232 H ALT 280 H Alkaline Phosphatase 89 D Total Protein 5.8 L D Albumin 3.1 L D Quality Stroke Does the patient have a stroke diagnosis?: No VTE Prior VTE?: No VTE Risk Level:: Medical - moderate - high VTE Device Contraindication: N/A - Device Ordered VTE Drug Contraindication: Treatment Not Indicated Assessment and Plan (1) Alcohol abuse with withdrawal: Status: Acute (2) Coffee ground emesis: Status: Acute Assessment and Plan: hospital d#2 50yo M with PMHx EtOH abuse, bipolar depression, DM2, hepatic cirrhosis, dyslipidemia, hypothyroidism presented with 3d of coffee-ground emesis, 10d of melena admitted for UGIB + bladder dilation # acute blood loss anemia due to suspected UGIB - Hb stable now. NPO after midnight for EGD tomorrow, T+S active, IV PPI, octreotide gtt, prophylactic ceftriaxone d#1 as per GI # bladder dilation/obstructive uropathy - Del Castillo placed, Urology consult pending. continue tamsulosin, add finasteride # EtOH hepatitis - MDF 25, no steroids or pentoxifylline indicated - monitor LFTs- improving # EtOH encephalopathy - lactulose + rifaximin # EtOH withdrawal - phenobarbital taper, thiamine + folate supplements # PAULINE - resolved after Del Castillo placement, suspect obstructive # DM2 - basal/bolus insulin # hypothyroidism - continue LT4 # bipolar depression - continue mirtapazine, risperidone, lithium # EtOH use disorder - CARE team consultation # VTE ppx - SCDs, no heparin given GIB
[2020-09-27] MEDS: cefTRIAXone sodium 1 GM in 0.9 % Sodium Chloride 50 ML IV (14:15)
[2020-09-27 15:37] VITALS: BP 99/59; PULSE 101; RESP 18; TEMP 37.2; O2SAT 92
[2020-09-27] MEDS: Finasteride 5 MG TABLET PO (15:39)
[2020-09-27 16:47] LABS: Glucose, Whole Blood 209 mg/dL (60-115)
--- NOTE | 2020-09-27 19:24 | MHC.RECOVSUP ---
? Reason for consult Recovery Support o Current location: [facility] o Identified substance use concern: Alcohol - Support ? Intervention: o Community resources provided o Harm reduction discussion ? Plan: o Patient to follow up with [facility] after discharge ? Additional information: Patient was really open to trying Something new for his recovery.. we talk about [facility] and what goes on there and the community.. Patient is interested in getting a manager recovery to help guide him in his short term goals
[2020-09-27 19:59] VITALS: BP 103/63; PULSE 95; RESP 18; TEMP 37.7; O2SAT 96
[2020-09-27] MEDS: Lithium Carbonate 300 MG CAPSULE 600 MG PO (20:59)
[2020-09-27] MEDS: risperiDONE 2 MG TABLET PO (21:00)
[2020-09-27] MEDS: Tamsulosin HCL 0.4 MG CAPSULE 0.8 MG PO (21:00)
[2020-09-27] MEDS: Mirtazapine 15 MG TABLET 45 MG PO (21:00)
[2020-09-27] MEDS: Atorvastatin Calcium 20 MG TABLET PO (21:01)
[2020-09-27] MEDS: 0.9 % Sodium Chloride Flush 3 ML SYRINGE IVFLUSH (21:04)
[2020-09-27] MEDS: traZODone HCL 50 MG TABLET PO (21:06)
[2020-09-27 21:25] LABS: Glucose, Whole Blood 222 mg/dL (60-115)
[2020-09-27] MEDS: Insulin Glargine,Hum.rec.anlog 100 UNIT/ML 10 ML VIAL 52 UNIT SUBCUT (21:39)
[2020-09-28] VITALS (12 sets, daily range): BP systolic 101–141; BP diastolic 59–87; PULSE 76–107; RESP 14–20; TEMP 3.7–38.7; O2SAT 94–99
[2020-09-28] MEDS: Lactated Ringers 1,000 ML 100 ML IVCONT ×2 (02:58→13:22)
[2020-09-28] MEDS: Levothyroxine Sodium 112 MCG TABLET PO (05:40)
[2020-09-28] MEDS: Levothyroxine Sodium 25 MCG TABLET PO (05:40)
[2020-09-28] MEDS: Octreotide Acetate 500 MCG in 0.9 % Sodium Chloride 500 ML 50 MCG IVCONT (05:40)
[2020-09-28] MEDS: Pantoprazole Sodium 40 MG/10 ML VIAL IVPUSH (05:43)
[2020-09-28 06:41] LABS: Hematocrit 27.4 % (42-52); Hemoglobin 8.9 g/dl (14.0-18.0); Mean Corpuscular HGB Conc 32.5 g/dl (31.0-36.0); Mean Corpuscular Hemoglobin 32.1 pg (27.0-33.0); Mean Corpuscular Volume 98.9 fL (80-98); Red Blood Count 2.77 X10*6/uL (4.60-5.80); Red Cell Distribution Width 16.1 % (11.0-16.0); White Blood Count 6.1 X10*3/uL (4.8-10.8)
[2020-09-28 06:42] LABS: Platelet Count 80 X10*3/uL (160-400)
[2020-09-28 06:56] LABS: Alanine Aminotransferase 222 U/L (0-40); Albumin Level 2.8 g/dL (3.5-5.0); Alkaline Phosphatase 97 U/L (39-117); Anion Gap 10 (12-20); Aspartate Amino Transferase 164 U/L (5-37); Bilirubin Total 0.8 mg/dL (0.0-1.0); Blood Urea Nitrogen 7 mg/dL (9-16); Calcium 7.5 mg/dL (8.4-10.2); Carbon Dioxide 22 mmol/L (22-29); Chloride 113 mmol/L (96-108); Creatinine Clr Calc Pharmacy 124.4; Estimated Glomerular Filt Rate > 60; Glucose Random 167 mg/dL (60-115); Potassium 3.6 mmol/L (3.3-5.1); Sodium 141 mmol/L (135-145); Total Protein 5.6 g/dL (6.5-8.0)
[2020-09-28 07:06] LABS: Glucose, Whole Blood 149 mg/dL (60-115)
[2020-09-28] MEDS: PHENobarbitaL 15 MG TABLET 45 MG PO (08:28)
[2020-09-28 11:14] LABS: Glucose, Whole Blood 137 mg/dL (60-115)
[2020-09-28] MEDS: Venlafaxine HCl ER 37.5 MG CAP.ER.24H PO (11:19)
[2020-09-28] MEDS: Thiamine HCL 100 MG TABLET PO (11:19)
[2020-09-28] MEDS: Lithium Carbonate 300 MG CAPSULE PO (11:19)
--- NOTE | 2020-09-28 11:34 | MHC.CM.PN ---
Per ROUNDS discussion, Patient is not yet ready for dc (ETOH Withdrawal, Endoscopy needed). Home/resume services is the goal and CM will follow for possible need to adjust the dc plan.
--- NOTE | 2020-09-28 12:47 | HO.PM.IMPN ---
Subjective Subjective Date of Service: 09/28/20 Interval History: no further coffee-ground emesis. notes melena. no tremor. NPO for EGD Physical Exam Vital Signs: Vital Signs: Last Vital Signs Temp 97 F 09/28/20 11:37 Pulse 76 09/28/20 11:37 Resp 16 09/28/20 11:37 BP 115/67 09/28/20 11:37 Pulse Ox 95 09/28/20 11:37 Body Mass Index 28.1 Gen: in no acute distress HEENT: sclera anicteric, moist mucus membranes Neck: supple Lungs: clear to auscultation bilaterally Heart: regular rate and rhythm, no murmurs Abd: soft, NT : Del Castillo in place draining clear urine Ext: no edema Skin: warm/well-perfused Neuro: alert and oriented x3, asterixis absent Psych: appropriate affect Objective Data Current Medications Generic Name Dose Route Start Last Admin Trade Name Freq PRN Reason Stop Dose Admin Acetaminophen 650 mg 09/26/20 05:36 Acetaminophen 325 Mg Tablet PO Q6H PRN Pain, Mild (Pain Scale 1-3) Atorvastatin Calcium 20 mg 09/26/20 21:00 09/27/20 21:01 Atorvastatin Calcium 20 Mg Tablet PO 20 mg BEDTIME [place] Administration Benztropine Mesylate 0.5 mg 09/26/20 09:00 09/28/20 11:20 Benztropine Mesylate 0.5 Mg Tablet PO Not Given DAILY [place] Docusate Sodium 100 mg 09/26/20 05:36 Docusate Sodium 100 Mg Capsule PO DAILY PRN Constipation Finasteride 5 mg 09/27/20 14:00 09/28/20 11:20 Finasteride 5 Mg Tablet PO Not Given DAILY [place] Folic Acid 1 mg 09/26/20 09:00 09/28/20 10:00 Folic Acid 1 Mg/0.2 Ml Syringe IM 1 mg DAILY [place] Administration Pantoprazole Sodium 80 mg/ 100 mls @ 10 mls/hr 09/26/20 00:30 09/27/20 16:40 Sodium Chloride IV 0 mg/hr .Q10H [place] 0 mls/hr Infusion 8 MG/HR Lactated Ringer's 1,000 mls @ 100 mls/hr 09/26/20 06:30 09/28/20 02:58 Lr IVCONT 100 mls/hr .Q10H [place] Administration Octreotide Acetate 500 mcg/ 501 mls @ 50.1 mls/hr 09/26/20 09:00 09/28/20 11:22 Sodium Chloride IVCONT Not Given .Q10H [place] 50 MCG/HR Ceftriaxone Sodium 1 gm/ 50 mls @ 100 mls/hr 09/27/20 14:00 09/27/20 15:36 Sodium Chloride IV Infused Q24H [place] Infusion Insulin Glargine 52 unit 09/27/20 21:00 09/27/20 21:39 Insulin Glargine,Hum.Rec.Anlog 100 Unit/Ml 10 Ml Vial SUBCUT 52 unit BEDTIME [place] Administration Insulin Human Lispro 0 unit 09/26/20 07:30 09/28/20 11:22 Insulin Lispro 100 Unit/Ml 3 Ml Vial SUBCUT Not Given QIDACHS PENDING SALE TO [facility] Protocol Lactulose 30 gm 09/26/20 15:00 09/28/20 11:20 Lactulose 20 Gm/30 Ml Solution PO Not Given TID [place] Levothyroxine Sodium 112 mcg 09/27/20 06:00 09/28/20 05:40 Levothyroxine Sodium 112 Mcg Tablet PO 112 mcg DAILY@0600 [place] Administration Levothyroxine Sodium 25 mcg 09/27/20 06:00 09/28/20 05:40 Levothyroxine Sodium 25 Mcg Tablet PO 25 mcg DAILY@0600 [place] Administration [place] Carbonate 300 mg 09/26/20 09:00 09/28/20 11:19 [place] Carbonate 300 Mg Capsule PO 300 mg DAILY [place] Administration [place] Carbonate 600 mg 09/26/20 21:00 09/27/20 20:59 [place] Carbonate 300 Mg Capsule PO 600 mg BEDTIME [place] Administration Medication 1 each 09/26/20 09:00 No Benzodiazepines MISCELLANE DAILY [place] Mirtazapine 45 mg 09/26/20 21:00 09/27/20 21:00 Mirtazapine 15 Mg Tablet PO 45 mg BEDTIME [place] Administration Ondansetron HCl 4 mg 09/26/20 05:36 Ondansetron Hcl 4 Mg/2 Ml Vial IVPUSH Q8H PRN Nausea and Vomiting Pantoprazole Sodium 40 mg 09/26/20 06:30 09/28/20 05:43 Pantoprazole Sodium 40 Mg/10 Ml Vial IVPUSH 40 mg BID@0630,1630 [place] Administration Phenobarbital 15 mg 09/28/20 21:00 Phenobarbital 15 Mg Tablet PO 09/30/20 09:01 BID PENDING S[facility] TO [facility] Phenobarbital 15 mg 10/01/20 09:00 Phenobarbital 15 Mg Tablet PO 10/02/20 09:01 DAILY [facility]ENDING SALE TO [facility] Rifaximin 550 mg 09/26/20 10:00 09/28/20 11:20 Rifaximin 550 Mg Tablet PO Not Given BID [place] Risperidone 2 mg 09/26/20 21:00 09/27/20 21:00 Risperidone 2 Mg Tablet PO 2 mg BEDTIME [place] Administration Sodium Chloride 3 ml 09/26/20 08:00 09/28/20 08:28 0.9 % Sodium Chloride Flush 3 Ml Syringe IVFLUSH Not Given QSHIFT PENDING SALE TO [facility] Tamsulosin HCl 0.8 mg 09/26/20 21:00 09/27/20 21:00 Tamsulosin Hcl 0.4 Mg Capsule PO 0.8 mg BEDTIME [place] Administration Thiamine HCl 100 mg 09/26/20 09:00 09/28/20 11:19 Thiamine Hcl 100 Mg Tablet PO 100 mg DAILY [place] Administration Trazodone HCl 50 mg 09/26/20 06:36 09/27/20 21:06 Trazodone Hcl 50 Mg Tablet PO 50 mg BEDTIME PRN Administration insomnia Venlafaxine HCl 37.5 mg 09/26/20 09:00 09/28/20 11:19 Venlafaxine Hcl Er 37.5 Mg Cap.Er.24h PO 37.5 mg DAILY [place] Administration Vitamin D 50 mcg 09/26/20 09:00 09/28/20 11:20 Cholecalciferol (Vitamin D3) 25 Mcg Tablet PO Not Given DAILY [facility]END[facility] TO [facility] Labs CBC & Chem 7: 09/28/20 05:12 09/28/20 05:12 Labs: Laboratory Results - last 24 hr 09/27/20 09/27/20 09/28/20 16:43 21:22 05:12 WBC 6.1 RBC 2.77 L Hgb 8.9 L Hct 27.4 L MCV 98.9 H MCH 32.1 MCHC 32.5 RDW 16.1 H Plt Count 80 L MPV 11.0 Absolute Nucleated RBC 0.000 Nucleated RBC % (auto) 0.0 Sodium Potassium Chloride Carbon Dioxide Anion Gap BUN Creatinine Estim Creat Clear Calc Estimated GFR POC Glucose 209 H 222 H Random Glucose Calcium Total Bilirubin AST ALT Alkaline Phosphatase Total Protein Albumin 09/28/20 09/28/20 09/28/20 05:12 07:01 11:06 WBC RBC Hgb Hct MCV MCH MCHC RDW Plt Count MPV Absolute Nucleated RBC Nucleated RBC % (auto) Sodium 141 Potassium 3.6 Chloride 113 H Carbon Dioxide 22 Anion Gap 10 L BUN 7 L Creatinine 0.71 Estim Creat Clear Calc 124.4 Estimated GFR > 60 POC Glucose 149 H 137 H Random Glucose 167 H Calcium 7.5 L Total Bilirubin 0.8 AST 164 H ALT 222 H Alkaline Phosphatase 97 Total Protein 5.6 L Albumin 2.8 L Quality Stroke Does the patient have a stroke diagnosis?: No VTE Prior VTE?: No VTE Risk Level:: Medical - moderate - high VTE Device Contraindication: N/A - Device Ordered VTE Drug Contraindication: Treatment Not Indicated Assessment and Plan (1) Alcohol abuse with withdrawal: Status: Acute (2) Coffee ground emesis: Status: Acute Assessment and Plan: hospital d#3 50yo M with PMHx EtOH abuse, bipolar depression, DM2, hepatic cirrhosis, dyslipidemia, hypothyroidism presented with 3d of coffee-ground emesis, 10d of melena admitted for UGIB + bladder dilation # acute blood loss anemia due to suspected UGIB - Hb stable, NPO for EGD today, T+S active, IV PPI, octreotide gtt, prophylactic ceftriaxone d#2 as per GI # bladder dilation/obstructive uropathy - Del Castillo placed, Urology consult pending. continue tamsulosin + finasteride # EtOH hepatitis - MDF 25, no steroids or pentoxifylline indicated - monitor LFTs- improving # EtOH encephalopathy - lactulose + rifaximin. asterixis resolved. # EtOH withdrawal - phenobarbital taper, thiamine + folate supplements # PAULINE - resolved after Del Castillo placement, suspect postrenal obstruction # DM2 - basal/bolus insulin # hypothyroidism - continue LT4 # bipolar depression - continue mirtapazine, risperidone, lithium # EtOH use disorder - CARE team + Addiction Medicine consultations # VTE ppx - SCDs, no heparin given GIB
--- NOTE | 2020-09-28 13:05 | ECG_ITS ---
Test Reason : chest pain Blood Pressure : / mmHG Vent. Rate : 077 BPM Atrial Rate : 077 BPM P-R Int : 164 ms QRS Dur : 076 ms QT Int : 422 ms P-R-T Axes : 064 039 039 degrees QTc Int : 477 ms Normal sinus rhythm Normal ECG When compared to the previous EKG of No significant changes seen Referred By: Daphne Vigil Electronically Signed By:Clovis Roland
--- NOTE | 2020-09-28 13:47 | HO.ANESPROP2 ---
[facility] Active Problems Active Problems: All Active Problems (Updated 09/26/20 @ 06:32 by Mac Og MD) Abdominal pain (Acute) Alcohol abuse with withdrawal (Acute) Transaminitis (Acute) Coffee ground emesis (Acute) Acute upper gastrointestinal bleeding (Acute) Anemia (Acute) Scrotal wall abscess (Acute) Diabetes mellitus type 2, uncontrolled (Acute) Bipolar depression (Acute) Elevated LFTs (Acute) Pure hypercholesterolemia (Acute) Urinary retention (Acute) Abnormal liver function test (Acute) Cirrhosis (Acute) BPH (benign prostatic hyperplasia) (Acute) Bipolar disorder (Acute) Obesity (BMI 30-39.9) (Acute) Postablative hypothyroidism (Acute) Dyslipidemia (Acute) Diabetic nephropathy associated with type 2 diabetes mellitus (Acute) 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 (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) Vitamin D deficiency (Acute) Prostate cancer screening (Acute) 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, urine (Acute) Diabetes (Acute) Hypothyroidism (Acute) Diabetes type 2, uncontrolled (Acute) Past Medical History Medical History Abnormal liver function test Bipolar depression Bipolar disorder BPH (benign prostatic hyperplasia) Cirrhosis Diabetes Diabetes mellitus type 2, uncontrolled Diabetes type 2, uncontrolled Diabetic nephropathy associated with type 2 diabetes mellitus Dyslipidemia Elevated LFTs Hypothyroidism 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, urine 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 Obesity (BMI 30-39.9) Postablative hypothyroidism Pure hypercholesterolemia Scrotal wall abscess Urinary retention Vitamin D deficiency Family History Family History Father Diabetes Mother Diabetes Maternal Aunt Family history of thyroid problem Surgical History Surgical History History of arthroscopy of left knee History of laparoscopic cholecystectomy Hx of colonoscopy Social History Social History Household Members: None Housing: House Do you presently have visiting nurse or other home services: Yes Alcohol intake: current Alcohol intake frequency: a few times a week Patient Tobacco Use Status: Never used Tobacco Use of substances other than those prescribed or required for medical reasons: No Currently Displaying Signs/Symptoms of Drug Intoxication Withdrawal: No Have you been hit, kicked, punched, or otherwise hurt by someone within the past year? If so, by whom?: No Do you feel safe in your current relationship?: No Current Relationship Is there a partner from a previous relationship who is making you feel unsafe now?: No Are you made to feel afraid or neglected: No Spiritual Healthcare Practices: no Zoroastrianism Healthcare Practices: no Cultural Healthcare Practices: no Are you DNR?: No Advance Directives: No Advance Directives Information Provided: No Do you have thoughts of harming others: None Do you have a plan to hurt others: No Plan Recently lost weight without trying: Yes How much weight loss: 2-13 pounds Nutrition Risks: No Nutritional Risk Poor oral hygiene: No service: No Current occupational status: unemployed Meds Allergies Allergy/AdvReac Type Severity Reaction Status Date / Time No Known Allergies Allergy Verified 09/26/20 00:22 [No Known Allergies*] Active Medications: Current Medications Generic Name Dose Route Start Last Admin Trade Name Freq PRN Reason Stop Dose Admin Acetaminophen 650 mg 09/26/20 05:36 Acetaminophen 325 Mg Tablet PO Q6H PRN Pain, Mild (Pain Scale 1-3) Atorvastatin Calcium 20 mg 09/26/20 21:00 09/27/20 21:01 Atorvastatin Calcium 20 Mg Tablet PO 20 mg BEDTIME [place] Administration Benztropine Mesylate 0.5 mg 09/26/20 09:00 09/28/20 11:20 Benztropine Mesylate 0.5 Mg Tablet PO Not Given DAILY [place] Docusate Sodium 100 mg 09/26/20 05:36 Docusate Sodium 100 Mg Capsule PO DAILY PRN Constipation Finasteride 5 mg 09/27/20 14:00 09/28/20 11:20 Finasteride 5 Mg Tablet PO Not Given DAILY [place] Folic Acid 1 mg 09/26/20 09:00 09/28/20 10:00 Folic Acid 1 Mg/0.2 Ml Syringe IM 1 mg DAILY [place] Administration Pantoprazole Sodium 80 mg/ 100 mls @ 10 mls/hr 09/26/20 00:30 09/27/20 16:40 Sodium Chloride IV 0 mg/hr .Q10H [place] 0 mls/hr Infusion 8 MG/HR Lactated Ringer's 1,000 mls @ 100 mls/hr 09/26/20 06:30 09/28/20 13:26 Lr IVCONT 0 mls/hr .Q10H [place] Infusion Octreotide Acetate 500 mcg/ 501 mls @ 50.1 mls/hr 09/26/20 09:00 09/28/20 11:22 Sodium Chloride IVCONT Not Given .Q10H [place] 50 MCG/HR Ceftriaxone Sodium 1 gm/ 50 mls @ 100 mls/hr 09/27/20 14:00 09/27/20 15:36 Sodium Chloride IV Infused Q24H [place] Infusion Insulin Glargine 52 unit 09/27/20 21:00 09/27/20 21:39 Insulin Glargine,Hum.Rec.Anlog 100 Unit/Ml 10 Ml Vial SUBCUT 52 unit BEDTIME [place] Administration Insulin Human Lispro 0 unit 09/26/20 07:30 09/28/20 11:22 Insulin Lispro 100 Unit/Ml 3 Ml Vial SUBCUT Not Given QIDACHS [facility] Protocol Lactulose 30 gm 09/26/20 15:00 09/28/20 11:20 Lactulose 20 Gm/30 Ml Solution PO Not Given TID [place] Levothyroxine Sodium 112 mcg 09/27/20 06:00 09/28/20 05:40 Levothyroxine Sodium 112 Mcg Tablet PO 112 mcg DAILY@0600 [place] Administration Levothyroxine Sodium 25 mcg 09/27/20 06:00 09/28/20 05:40 Levothyroxine Sodium 25 Mcg Tablet PO 25 mcg DAILY@0600 [place] Administration Sandy Carbonate 300 mg 09/26/20 09:00 09/28/20 11:19 Sandy Carbonate 300 Mg Capsule PO 300 mg DAILY [place] Administration Sandy Carbonate 600 mg 09/26/20 21:00 09/27/20 20:59 Sandy Carbonate 300 Mg Capsule PO 600 mg BEDTIME [place] Administration Medication 1 each 09/26/20 09:00 No Benzodiazepines MISCELLANE DAILY [place] Mirtazapine 45 mg 09/26/20 21:00 09/27/20 21:00 Mirtazapine 15 Mg Tablet PO 45 mg BEDTIME [place] Administration Ondansetron HCl 4 mg 09/26/20 05:36 Ondansetron Hcl 4 Mg/2 Ml Vial IVPUSH Q8H PRN Nausea and Vomiting Pantoprazole Sodium 40 mg 09/26/20 06:30 09/28/20 05:43 Pantoprazole Sodium 40 Mg/10 Ml Vial IVPUSH 40 mg BID@0630,1630 [place] Administration Phenobarbital 15 mg 09/28/20 21:00 Phenobarbital 15 Mg Tablet PO 09/30/20 09:01 BID [place] Phenobarbital 15 mg 10/01/20 09:00 Phenobarbital 15 Mg Tablet PO 10/02/20 09:01 DAILY [place] Rifaximin 550 mg 09/26/20 10:00 09/28/20 11:20 Rifaximin 550 Mg Tablet PO Not Given BID [place] Risperidone 2 mg 09/26/20 21:00 09/27/20 21:00 Risperidone 2 Mg Tablet PO 2 mg BEDTIME [place] Administration Sodium Chloride 3 ml 09/26/20 08:00 09/28/20 08:28 0.9 % Sodium Chloride Flush 3 Ml Syringe IVFLUSH Not Given QSHIFT [place] Tamsulosin HCl 0.8 mg 09/26/20 21:00 09/27/20 21:00 Tamsulosin Hcl 0.4 Mg Capsule PO 0.8 mg BEDTIME [place] Administration Thiamine HCl 100 mg 09/26/20 09:00 09/28/20 11:19 Thiamine Hcl 100 Mg Tablet PO 100 mg DAILY [place] Administration Trazodone HCl 50 mg 09/26/20 06:36 09/27/20 21:06 Trazodone Hcl 50 Mg Tablet PO 50 mg BEDTIME PRN Administration insomnia Venlafaxine HCl 37.5 mg 09/26/20 09:00 09/28/20 11:19 Venlafaxine Hcl Er 37.5 Mg Cap.Er.24h PO 37.5 mg DAILY [place] Administration Vitamin D 50 mcg 09/26/20 09:00 09/28/20 11:20 Cholecalciferol (Vitamin D3) 25 Mcg Tablet PO Not Given DAILY [facility] Home Medications Medication Instructions Recorded Confirmed Last Taken Type benztropine 0.5 mg tablet 0.5 mg PO DAILY 02/14/20 09/26/20 Unknown History clonazepam 1 mg tablet 1 mg PO BID PRN 02/14/20 09/26/20 Unknown History mirtazapine 45 mg tablet 45 mg PO BEDTIME 02/14/20 09/26/20 Unknown History risperidone 2 mg tablet 2 mg PO BEDTIME 02/14/20 09/26/20 Unknown History lithium carbonate 300 mg tablet See Rx Instructions PO .COMPLEX 04/17/20 09/26/20 Unknown History trazodone 50 mg tablet See Rx Instructions PO BEDTIME PRN 04/17/20 09/26/20 Unknown History tab venlafaxine 1 cap PO DAILY 09/26/20 09/26/20 Unknown History Exam Exam Date and Time: September 28, 2020 1347 Height,Weight and Vital Signs: Height 5 ft 7 in Weight 81.647 kg Last Vital Signs Temp 97 F 09/28/20 11:37 Pulse 76 09/28/20 11:37 Resp 16 09/28/20 11:37 BP 115/67 09/28/20 11:37 Pulse Ox 95 09/28/20 11:37 Pertinent Lab Results Pertinent Lab Results: Laboratory Tests 09/25/20 09/25/20 09/25/20 20:28 20:28 20:28 WBC 15.7 H RBC 3.22 L D Hgb 10.9 L D Hct 31.4 L D MCV 97.5 MCH 33.9 H MCHC 34.7 RDW 16.5 H Plt Count 118 L D MPV 11.0 Immature Gran % (Auto) 1.0 H Neut % (Auto) 60.7 Lymph % (Auto) 16.7 L Wolfe % (Auto) 20.5 H Eos % (Auto) 0.7 Baso % (Auto) 0.4 Lymph # (Auto) 2.6 Wolfe # (Auto) 3.2 H Eos # (Auto) 0.1 Baso # (Auto) 0.1 Abs Immat Gran (auto) 0.15 H Absolute Neuts (auto) 9.5 H Absolute Nucleated RBC 0.020 H Nucleated RBC % (auto) 0.1 Smear Tech's Comments VERIFIED PT INR Sodium 137 Potassium 4.1 Chloride 102 Carbon Dioxide 21 L Anion Gap 18 BUN 33 H D Creatinine 1.20 Estim Creat Clear Calc 73.6 Estimated GFR > 60 POC Glucose Random Glucose 377 H* Calcium 9.8 Magnesium Total Bilirubin 1.4 H Direct Bilirubin 0.8 H AST 327 H ALT 392 H Alkaline Phosphatase 120 H D Ammonia Troponin I High Sens 5.3 Total Protein 7.9 Albumin 4.1 Lipase Urine Color Urine Appearance Urine pH Ur Specific [place] Urine Protein Urine Glucose (UA) Urine Ketones Urine Blood Urine Nitrite Ur Leukocyte Esterase Urine RBC Urine WBC Ur Squamous Epith Cells Urine Bacteria Stool Occult Blood COVID-19 ([facility]) COVID-19 Clin Com Blood Type Antibody Screen 09/25/20 09/25/20 09/25/20 20:28 20:28 22:13 WBC RBC Hgb Hct MCV MCH MCHC RDW Plt Count MPV Immature Gran % (Auto) Neut % (Auto) Lymph % (Auto) Wolfe % (Auto) Eos % (Auto) Baso % (Auto) Lymph # (Auto) Wolfe # (Auto) Eos # (Auto) Baso # (Auto) Abs Immat Gran (auto) Absolute Neuts (auto) Absolute Nucleated RBC Nucleated RBC % (auto) Smear Tech's Comments PT 18.2 H INR 1.5 H Sodium Potassium Chloride Carbon Dioxide Anion Gap BUN Creatinine Estim Creat Clear Calc Estimated GFR POC Glucose Random Glucose Calcium Magnesium 2.6 Total Bilirubin Direct Bilirubin AST ALT Alkaline Phosphatase Ammonia Troponin I High Sens Total Protein Albumin Lipase 66 Urine Color YELLOW Urine Appearance CLEAR Urine pH 6.0 Ur Specific [place] <= 1.005 Urine Protein NEG Urine Glucose (UA) >=1000 H Urine Ketones 15 Urine Blood NEG Urine Nitrite NEG Ur Leukocyte Esterase NEG Urine RBC 0-2 Urine WBC 0 Ur Squamous Epith Cells NONE Urine Bacteria NONE Stool Occult Blood COVID-19 ([facility]IO) COVID-19 [employer] Blood Type Antibody Screen 09/25/20 09/26/20 09/26/20 23:33 00:27 00:27 WBC RBC Hgb Hct MCV MCH MCHC RDW Plt Count MPV Immature Gran % (Auto) Neut % (Auto) Lymph % (Auto) Wolfe % (Auto) Eos % (Auto) Baso % (Auto) Lymph # (Auto) Wolfe # (Auto) Eos # (Auto) Baso # (Auto) Abs Immat Gran (auto) Absolute Neuts (auto) Absolute Nucleated RBC Nucleated RBC % (auto) Smear Tech's Comments PT INR Sodium Potassium Chloride Carbon Dioxide Anion Gap BUN Creatinine Estim Creat Clear Calc Estimated GFR POC Glucose 216 H Random Glucose Calcium Magnesium Total Bilirubin Direct Bilirubin AST ALT Alkaline Phosphatase Ammonia Troponin I High Sens Total Protein Albumin Lipase Urine Color Urine Appearance Urine pH Ur Specific [place] Urine Protein Urine Glucose (UA) Urine Ketones Urine Blood Urine Nitrite Ur Leukocyte Esterase Urine RBC Urine WBC Ur Squamous Epith Cells Urine Bacteria Stool Occult Blood POSITIVE COVID-19 ([facility]EMIO) COVID-19 [employer] Blood Type A Positive Antibody Screen NEGATIVE 09/26/20 09/26/20 09/26/20 01:07 06:00 07:06 WBC RBC Hgb Hct MCV MCH MCHC RDW Plt Count MPV Immature Gran % (Auto) Neut % (Auto) Lymph % (Auto) Wolfe % (Auto) Eos % (Auto) Baso % (Auto) Lymph # (Auto) Wolfe # (Auto) Eos # (Auto) Baso # (Auto) Abs Immat Gran (auto) Absolute Neuts (auto) Absolute Nucleated RBC Nucleated RBC % (auto) Smear Tech's Comments PT INR Sodium Potassium Chloride Carbon Dioxide Anion Gap BUN Creatinine Estim Creat Clear Calc Estimated GFR POC Glucose 175 H 187 H Random Glucose Calcium Magnesium Total Bilirubin Direct Bilirubin AST ALT Alkaline Phosphatase Ammonia Troponin I High Sens Total Protein Albumin Lipase Urine Color Urine Appearance Urine pH Ur Specific [place] Urine Protein Urine Glucose (UA) Urine Ketones Urine Blood Urine Nitrite Ur Leukocyte Esterase Urine RBC Urine WBC Ur Squamous Epith Cells Urine Bacteria Stool Occult Blood COVID-19 ([facility]) Negative COVID-[employer] See Note Blood Type Antibody Screen 09/26/20 09/26/20 09/26/20 07:21 10:57 14:07 WBC RBC Hgb 8.8 L Hct 27.2 L MCV MCH MCHC RDW Plt Count MPV Immature Gran % (Auto) Neut % (Auto) Lymph % (Auto) Wolfe % (Auto) Eos % (Auto) Baso % (Auto) Lymph # (Auto) Wolfe # (Auto) Eos # (Auto) Baso # (Auto) Abs Immat Gran (auto) Absolute Neuts (auto) Absolute Nucleated RBC Nucleated RBC % (auto) Smear Tech's Comments PT INR Sodium Potassium Chloride Carbon Dioxide Anion Gap BUN Creatinine Estim Creat Clear Calc Estimated GFR POC Glucose 157 H Random Glucose Calcium Magnesium Total Bilirubin Direct Bilirubin AST ALT Alkaline Phosphatase Ammonia 73 H Troponin I High Sens Total Protein Albumin Lipase Urine Color Urine Appearance Urine pH Ur Specific [place] Urine Protein Urine Glucose (UA) Urine Ketones Urine Blood Urine Nitrite Ur Leukocyte Esterase Urine RBC Urine WBC Ur Squamous Epith Cells Urine Bacteria Stool Occult Blood COVID-19 ([facility]) COVID-[employer] Blood Type Antibody Screen 09/26/20 09/26/20 09/26/20 15:50 19:59 20:33 WBC RBC Hgb 9.1 L Hct 27.9 L MCV MCH MCHC RDW Plt Count MPV Immature Gran % (Auto) Neut % (Auto) Lymph % (Auto) Wolfe % (Auto) Eos % (Auto) Baso % (Auto) Lymph # (Auto) Wolfe # (Auto) Eos # (Auto) Baso # (Auto) Abs Immat Gran (auto) Absolute Neuts (auto) Absolute Nucleated RBC Nucleated RBC % (auto) Smear Tech's Comments PT INR Sodium Potassium Chloride Carbon Dioxide Anion Gap BUN Creatinine Estim Creat Clear Calc Estimated GFR POC Glucose 263 H 445 H* Random Glucose Calcium Magnesium Total Bilirubin Direct Bilirubin AST ALT Alkaline Phosphatase Ammonia Troponin I High Sens Total Protein Albumin Lipase Urine Color Urine Appearance Urine pH Ur Specific [place] Urine Protein Urine Glucose (UA) Urine Ketones Urine Blood Urine Nitrite Ur Leukocyte Esterase Urine RBC Urine WBC Ur Squamous Epith Cells Urine Bacteria Stool Occult Blood COVID-19 ([facility]) COVID-19 Clin Com Blood Type Antibody Screen 09/26/20 09/26/20 09/26/20 20:36 21:30 22:00 WBC RBC Hgb Hct MCV MCH MCHC RDW Plt Count MPV Immature Gran % (Auto) Neut % (Auto) Lymph % (Auto) Wolfe % (Auto) Eos % (Auto) Baso % (Auto) Lymph # (Auto) Wolfe # (Auto) Eos # (Auto) Baso # (Auto) Abs Immat Gran (auto) Absolute Neuts (auto) Absolute Nucleated RBC Nucleated RBC % (auto) Smear Tech's Comments PT INR Sodium 135 Potassium 4.0 Chloride 104 Carbon Dioxide 18 L Anion Gap 17 BUN 18 H Creatinine 1.27 Estim Creat Clear Calc 69.5 Estimated GFR 60 POC Glucose 432 H* 380 H* Random Glucose 492 H* Calcium 7.9 L D Magnesium Total Bilirubin Direct Bilirubin AST ALT Alkaline Phosphatase Ammonia Troponin I High Sens Total Protein Albumin Lipase Urine Color Urine Appearance Urine pH Ur Specific [place] Urine Protein Urine Glucose (UA) Urine Ketones Urine Blood Urine Nitrite Ur Leukocyte Esterase Urine RBC Urine WBC Ur Squamous Epith Cells Urine Bacteria Stool Occult Blood COVID-19 ([facility]) COVID-19 Clin Com Blood Type Antibody Screen 09/26/20 09/27/20 09/27/20 22:55 04:08 05:47 WBC 7.7 RBC 2.67 L Hgb 8.7 L Hct 26.0 L MCV 97.4 MCH 32.6 MCHC 33.5 RDW 15.9 Plt Count 80 L D MPV 11.1 Immature Gran % (Auto) 0.8 H Neut % (Auto) 56.0 Lymph % (Auto) 21.6 Wolfe % (Auto) 19.4 H Eos % (Auto) 1.7 Baso % (Auto) 0.5 Lymph # (Auto) 1.7 Wolfe # (Auto) 1.5 H Eos # (Auto) 0.1 Baso # (Auto) 0.0 Abs Immat Gran (auto) 0.06 H Absolute Neuts (auto) 4.3 Absolute Nucleated RBC 0.020 H Nucleated RBC % (auto) 0.3 H Smear Tech's Comments PT INR Sodium Potassium Chloride Carbon Dioxide Anion Gap BUN Creatinine Estim Creat Clear Calc Estimated GFR POC Glucose 282 H 133 H Random Glucose Calcium Magnesium Total Bilirubin Direct Bilirubin AST ALT Alkaline Phosphatase Ammonia Troponin I High Sens Total Protein Albumin Lipase Urine Color Urine Appearance Urine pH Ur Specific [place] Urine Protein Urine Glucose (UA) Urine Ketones Urine Blood Urine Nitrite Ur Leukocyte Esterase Urine RBC Urine WBC Ur Squamous Epith Cells Urine Bacteria Stool Occult Blood COVID-19 ([facility]) [employer] Blood Type Antibody Screen 09/27/20 09/27/20 09/27/20 05:47 05:47 05:47 WBC RBC Hgb Hct MCV MCH MCHC RDW Plt Count MPV Immature Gran % (Auto) Neut % (Auto) Lymph % (Auto) Wolfe % (Auto) Eos % (Auto) Baso % (Auto) Lymph # (Auto) Wolfe # (Auto) Eos # (Auto) Baso # (Auto) Abs Immat Gran (auto) Absolute Neuts (auto) Absolute Nucleated RBC Nucleated RBC % (auto) Smear Tech's Comments PT 17.5 H INR 1.5 H Sodium 142 Potassium 3.5 Chloride 110 H Carbon Dioxide 24 Anion Gap 12 BUN 14 Creatinine 0.83 Estim Creat Clear Calc 106.4 Estimated GFR > 60 POC Glucose Random Glucose 133 H D Calcium 7.8 L Magnesium 2.1 Total Bilirubin 0.9 Direct Bilirubin 0.6 H AST 232 H ALT 280 H Alkaline Phosphatase 89 D Ammonia Troponin I High Sens Total Protein 5.8 L D Albumin 3.1 L D Lipase Urine Color Urine Appearance Urine pH Ur Specific [place] Urine Protein Urine Glucose (UA) Urine Ketones Urine Blood Urine Nitrite Ur Leukocyte Esterase Urine RBC Urine WBC Ur Squamous Epith Cells Urine Bacteria Stool Occult Blood COVID-19 ([facility]EMIO) COVID-19 [employer] Blood Type Antibody Screen 09/27/20 09/27/20 09/27/20 07:10 11:00 16:43 WBC RBC Hgb Hct MCV MCH MCHC RDW Plt Count MPV Immature Gran % (Auto) Neut % (Auto) Lymph % (Auto) Wol[place] % (Auto) Eos % (Auto) Baso % (Auto) Lymph # (Auto) Wolfe # (Auto) Eos # (Auto) Baso # (Auto) Abs Immat Gran (auto) Absolute Neuts (auto) Absolute Nucleated RBC Nucleated RBC % (auto) Smear Tech's Comments PT INR Sodium Potassium Chloride Carbon Dioxide Anion Gap BUN Creatinine Estim Creat Clear Calc Estimated GFR POC Glucose 143 H 282 H 209 H Random Glucose Calcium Magnesium Total Bilirubin Direct Bilirubin AST ALT Alkaline Phosphatase Ammonia Troponin I High Sens Total Protein Albumin Lipase Urine Color Urine Appearance Urine pH Ur Specific [place] Urine Protein Urine Glucose (UA) Urine Ketones Urine Blood Urine Nitrite Ur Leukocyte Esterase Urine RBC Urine WBC Ur Squamous Epith Cells Urine Bacteria Stool Occult Blood COVID-19 (ARTEMIO) [employer]OV[employer] Blood Type Antibody Screen 09/27/20 09/28/20 09/28/20 21:22 05:12 05:12 WBC 6.1 RBC 2.77 L Hgb 8.9 L Hct 27.4 L MCV 98.9 H MCH 32.1 MCHC 32.5 RDW 16.1 H Plt Count 80 L MPV 11.0 Immature Gran % (Auto) Neut % (Auto) Lymph % (Auto) Wolfe % (Auto) Eos % (Auto) Baso % (Auto) Lymph # (Auto) Wolfe # (Auto) Eos # (Auto) Baso # (Auto) Abs Immat Gran (auto) Absolute Neuts (auto) Absolute Nucleated RBC 0.000 Nucleated RBC % (auto) 0.0 Smear Tech's Comments PT INR Sodium 141 Potassium 3.6 Chloride 113 H Carbon Dioxide 22 Anion Gap 10 L BUN 7 L Creatinine 0.71 Estim Creat Clear Calc 124.4 Estimated GFR > 60 POC Glucose 222 H Random Glucose 167 H Calcium 7.5 L Magnesium Total Bilirubin 0.8 Direct Bilirubin AST 164 H ALT 222 H Alkaline Phosphatase 97 Ammonia Troponin I High Sens Total Protein 5.6 L Albumin 2.8 L Lipase Urine Color Urine Appearance Urine pH Ur Specific [place] Urine Protein Urine Glucose (UA) Urine Ketones Urine Blood Urine Nitrite Ur Leukocyte Esterase Urine RBC Urine WBC Ur Squamous Epith Cells Urine Bacteria Stool Occult Blood COVID-19 ([facility]EMIO) COVID-[employer] Blood Type Antibody Screen 09/28/20 09/28/20 07:01 11:06 WBC RBC Hgb Hct MCV MCH MCHC RDW Plt Count MPV Immature Gran % (Auto) Neut % (Auto) Lymph % (Auto) Wolfe % (Auto) Eos % (Auto) Baso % (Auto) Lymph # (Auto) Wolfe # (Auto) Eos # (Auto) Baso # (Auto) Abs Immat Gran (auto) Absolute Neuts (auto) Absolute Nucleated RBC Nucleated RBC % (auto) Smear Tech's Comments PT INR Sodium Potassium Chloride Carbon Dioxide Anion Gap BUN Creatinine Estim Creat Clear Calc Estimated GFR POC Glucose 149 H 137 H Random Glucose Calcium Magnesium Total Bilirubin Direct Bilirubin AST ALT Alkaline Phosphatase Ammonia Troponin I High Sens Total Protein Albumin Lipase Urine Color Urine Appearance Urine pH Ur Specific [place] Urine Protein Urine Glucose (UA) Urine Ketones Urine Blood Urine Nitrite Ur Leukocyte Esterase Urine RBC Urine WBC Ur Squamous Epith Cells Urine Bacteria Stool Occult Blood COVID-19 (ARTEMIO) COVID-19 Clin Com Blood Type Antibody Screen Airway Mallampati Class: III TM Dist: >3cm Neck ROM: Full Heart: RRR Lungs: CTA
[2020-09-28 13:51] LABS: Glucose, Whole Blood 141 mg/dL (60-115)
--- NOTE | 2020-09-28 14:09 | PC.NURSE ---
okay per dr blanc to stop sandostTIN PRIOR TO PROCEDURE
--- NOTE | 2020-09-28 14:29 | PM.OP ---
Brief Operative Note Date of Service: 09/28/20 Pre-op diagnosis: anemia, GI bleeding Post-op diagnosis: same Procedure: see op note Surgeon: Jade Douglas MD Anesthesia: MAC Was an Mine Environmental Engineer used for this Procedure?: No Estimated blood loss (mL): 0 Condition: stable Disposition: PACU
--- NOTE | 2020-09-28 14:29 | MHC.SHP ---
Pre-Procedural Eval Section A The patient is an INPATIENT: Yes The History & Physical has been completed within 30 days and I have reviewed it.: Yes Section B Chief Complaint: Hematemesis, GI Bleed, Alcohol Withdrawl Allergies: Allergies Allergy/AdvReac Type Severity Reaction Status Date / Time No Known Allergies Allergy Verified 09/26/20 00:22 [No Known Allergies*] Plan Diagnosis/Plan: Unchanged I have reviewed the history and physical and performed a pertinent physical examination on my patient. No changes have occurred unless specified.
--- NOTE | 2020-09-28 14:30 | W.PM.OPN ---
Operative Note Operative Note Date of Service: 09/28/20 Narrative: Procedure Description: EGD FLEXIBLE TRANSORAL UPPER GASTROINTESTINAL ENDOSCOPY UPPER ENDOSCOPY Consent: Indications for the procedure and potential complications of bleeding, perforation, reaction to medications and missed diagnosis were discussed with the patient and informed consent was obtained. Instrument: Olympus GIF H 190 J mid size upper endoscope Monitoring: Vital signs and clinical assessment, continuous EKG monitoring, Pulse oximetry, Carbon Dioxide monitoring and blood pressure monitoring were done throughout the procedure. Procedure: The patient was placed in the left lateral decubitis position and pre-procedure medications were administered and a bite block was placed. The endoscope was inserted into the mouth and advanced under direct vision to the third part of duodenum. A careful inspection was made as the upper endoscope was withdrawn including a retroflexed examination of the proximal stomach; Findings and interventions are described below. Findings: Larynx:normal Esophagus: GE junction at 38 cm, diaphragm hiatus at 38 cm, 3 variceal columns noted grade II, no high risk stigmata, but extended into the stomach i.e type 1 GOV, 4 bands applied with good effect Stomach: Patchy gastric erythema and mosaic pattern consistent with portal hypertensive gastritis. Biopsies were obtained to r/o h pylori. Grade 2 flap valve on retroflexed examination of the cardia, gastric varix extending from esophagus noted ie: type 1 GOV Duodenum: Normal bulb and descending duodenum, bx taken Intervention: Biopsies as noted above, banding of varices Impression/Findings: portal hypertensive gastritis possible from alcohol as well esophageal varices, type 1 GOV PLAN: soft diet today commence beta rashad on d/c aiming for heart rate 65 bpm, carvedilol is preferred option if BP allows otherwise nadolol or propranolol commence low dose statin as reduces portal pressures e.g simvastatin 20 mg repeat EGd in 2-4 weeks for reassessment of varices high dose PPI for 3 months, pantoprazole 40 mg bid, and carafate 1 g for 4 weeks alcohol cessation cont octreotide for another 24 hrs then stop
[2020-09-28 16:43] LABS: Glucose, Whole Blood 139 mg/dL (60-115)
[2020-09-28] MEDS: Octreotide Acetate 500 MCG in 0.9 % Sodium Chloride 500 ML 50.1 MCG IVCONT (17:23)
[2020-09-28] MEDS: 0.9 % Sodium Chloride Flush 3 ML SYRINGE IVFLUSH (17:27)
[2020-09-28] MEDS: Insulin Lispro 100 UNIT/ML 3 ML VIAL SUBCUT ×2 (17:43→21:31)
[2020-09-28] MEDS: Sucralfate 1 GM TABLET PO ×2 (17:44→21:30)
[2020-09-28] MEDS: Omeprazole 20 MG CAPSULE.DR PO (17:44)
[2020-09-28 20:03] LABS: Glucose, Whole Blood 294 mg/dL (60-115)
[2020-09-28] MEDS: Tamsulosin HCL 0.4 MG CAPSULE 0.8 MG PO (21:29)
[2020-09-28] MEDS: risperiDONE 2 MG TABLET PO (21:30)
[2020-09-28] MEDS: PHENobarbitaL 15 MG TABLET PO (21:30)
[2020-09-28] MEDS: Atorvastatin Calcium 20 MG TABLET PO (21:30)
[2020-09-28] MEDS: Lithium Carbonate 300 MG CAPSULE 600 MG PO (21:30)
[2020-09-28] MEDS: Mirtazapine 15 MG TABLET 45 MG PO (21:30)
[2020-09-28] MEDS: Insulin Glargine,Hum.rec.anlog 100 UNIT/ML 10 ML VIAL 52 UNIT SUBCUT (21:31)
[2020-09-28] MEDS: rifAXIMin 550 MG TABLET PO (21:36)
[2020-09-29] VITALS (7 sets, daily range): BP systolic 104–144; BP diastolic 57–81; PULSE 85–96; RESP 16–20; TEMP 36.3–37.7; O2SAT 92–99
[2020-09-29] MEDS: Octreotide Acetate 500 MCG in 0.9 % Sodium Chloride 500 ML 50.1 MCG IVCONT (03:00)
[2020-09-29] MEDS: Levothyroxine Sodium 25 MCG TABLET PO (05:06)
[2020-09-29] MEDS: Levothyroxine Sodium 112 MCG TABLET PO (05:06)
[2020-09-29] MEDS: Pantoprazole Sodium 40 MG/10 ML VIAL IVPUSH ×2 (05:07→17:04)
[2020-09-29 06:51] LABS: Hematocrit 26.8 % (42-52); Hemoglobin 8.8 g/dl (14.0-18.0)
[2020-09-29 06:59] LABS: Glucose, Whole Blood 125 mg/dL (60-115)
[2020-09-29] MEDS: Finasteride 5 MG TABLET PO (08:29)
[2020-09-29] MEDS: Thiamine HCL 100 MG TABLET PO (08:29)
[2020-09-29] MEDS: Insulin Lispro 100 UNIT/ML 3 ML VIAL SUBCUT ×4 (08:29→21:11)
[2020-09-29] MEDS: Sucralfate 1 GM TABLET PO ×4 (08:29→21:11)
[2020-09-29] MEDS: Cholecalciferol (Vitamin D3) 25 MCG TABLET 50 MCG PO (08:30)
[2020-09-29] MEDS: Benztropine Mesylate 0.5 MG TABLET PO (08:30)
[2020-09-29] MEDS: Venlafaxine HCl ER 37.5 MG CAP.ER.24H PO (08:30)
[2020-09-29] MEDS: rifAXIMin 550 MG TABLET PO ×2 (08:30→21:10)
[2020-09-29] MEDS: Lithium Carbonate 300 MG CAPSULE PO (08:30)
[2020-09-29] MEDS: PHENobarbitaL 15 MG TABLET PO ×2 (08:30→21:11)
--- NOTE | 2020-09-29 08:51 | HO.POSTANES ---
Post Anesthesia Evaluation Post Anesthesia Evaluation Vital Signs: Vital Signs Temp Pulse Resp BP Pulse Ox 09/29/20 07:06 98.5 F 91 20 111/71 95 09/29/20 03:34 99.7 F 96 20 120/70 94 09/28/20 23:13 98.6 F 107 H 18 117/68 94 Anesthesia: Monitored Mental Status: Awake Pain Control: Satisfactory Nausea/Vomiting: None Hydration: Adequate
--- NOTE | 2020-09-29 08:53 | HO.POSTANES ---
Post Anesthesia Evaluation Post Anesthesia Evaluation Vital Signs: Vital Signs Temp Pulse Resp BP Pulse Ox 09/29/20 07:06 98.5 F 91 20 111/71 95 09/29/20 03:34 99.7 F 96 20 120/70 94 09/28/20 23:13 98.6 F 107 H 18 117/68 94 Anesthesia: Monitored Mental Status: Awake Pain Control: Satisfactory Nausea/Vomiting: None Hydration: Adequate Anesthesia-Related Issues: No Anes. Related Issues
--- NOTE | 2020-09-29 11:31 | MHC.CM.PN ---
HILARIA spoke with Daughter/Peg @ [phone].Peg confirms that Patient receives a Nurse visit 3X/week but she is not aware of the name of the agency that the Nurse comes from. Peg indicated that she would reach out to Patient's Girlfriend to attempt to get the name. HILARIA explained that it will be important to determine the Agency so that services can be resumed at time of dc.HILARIA will follow.
--- NOTE | 2020-09-29 11:45 | MHC.RECOVRN ---
T/w met with pt to discuss medications for alcohol use disorder. Pt has previously met with Recovery Neonatal Pediatric Nurse as well as Numerical Control Router Operator to discuss other recovery supports. Pt reports drinking 6 25 oz beers daily x 1 year. Pt reports feeling okay and denies withdrawal symptoms. Pt was educated regarding medications available for alcohol use disorder and is aware that some may not be appropriate to begin at this time due to pts medical status/liver function. Pt is interested in starting acamprosate. Pt was educated regarding the [facility] and services available there. Pt was given information about the [facility], medications for alcohol use disorder, as well as t/w card. Appt made at the [facility] for 10/07 10:30 am for intake appt. Case referred to and discussed with Raisa Cordova APRN, as well as HILARIA.
[2020-09-29] MEDS: cefTRIAXone sodium 1 GM in 0.9 % Sodium Chloride 50 ML IV (13:28)
--- NOTE | 2020-09-29 14:57 | PC.NURSE ---
Skin assessment completed today. No skin issues noted.
[2020-09-29 16:03] LABS: Glucose, Whole Blood 245 mg/dL (60-115)
[2020-09-29 16:03] LABS: Glucose, Whole Blood 299 mg/dL (60-115)
--- NOTE | 2020-09-29 16:31 | HO.PM.IMPN ---
Subjective Subjective Date of Service: 09/29/20 Interval History: no coffee-ground emesis ongoing melena no tremors Physical Exam Vital Signs: Vital Signs: Last Vital Signs Temp 97.5 F 09/29/20 15:09 Pulse 90 09/29/20 15:09 Resp 16 09/29/20 15:09 BP 123/69 09/29/20 15:09 Pulse Ox 96 09/29/20 15:09 Body Mass Index 28.1 Gen: in no acute distress HEENT: sclera anicteric, moist mucus membranes Neck: supple Lungs: clear to auscultation bilaterally Heart: regular rate and rhythm, no murmurs Abd: soft, NT : Del Castillo in place draining clear urine Ext: no edema Skin: warm/well-perfused Neuro: alert and oriented x3, asterixis absent Psych: appropriate affect Objective Data Current Medications Generic Name Dose Route Start Last Admin Trade Name Freq PRN Reason Stop Dose Admin Acetaminophen 650 mg 09/26/20 05:36 Acetaminophen 325 Mg Tablet PO Q6H PRN Pain, Mild (Pain Scale 1-3) Atorvastatin Calcium 20 mg 09/26/20 21:00 09/28/20 21:30 Atorvastatin Calcium 20 Mg Tablet PO 20 mg BEDTIME [place] Administration Benztropine Mesylate 0.5 mg 09/26/20 09:00 09/29/20 08:30 Benztropine Mesylate 0.5 Mg Tablet PO 0.5 mg DAILY [facility] Administration Docusate Sodium 100 mg 09/26/20 05:36 Docusate Sodium 100 Mg Capsule PO DAILY PRN Constipation Finasteride 5 mg 09/27/20 14:00 09/29/20 08:29 Finasteride 5 Mg Tablet PO 5 mg DAILY [place] Administration Folic Acid 1 mg 09/26/20 09:00 09/29/20 09:26 Folic Acid 1 Mg/0.2 Ml Syringe IM 1 mg DAILY [facility] Administration Ceftriaxone Sodium 1 gm/ 50 mls @ 100 mls/hr 09/27/20 14:00 09/29/20 13:58 Sodium Chloride IV Infused Q24H [facility] Infusion Octreotide Acetate 500 mcg/ 501 mls @ 50.1 mls/hr 09/28/20 16:00 09/29/20 12:01 Sodium Chloride IVCONT Not Given .Q10H [facility] 50 MCG/HR Insulin Glargine 52 unit 09/27/20 21:00 09/28/20 21:31 Insulin Glargine,Hum.Rec.Anlog 100 Unit/Ml 10 Ml Vial SUBCUT 52 unit BEDTIME [facility] Administration Insulin Human Lispro 0 unit 09/26/20 07:30 09/29/20 11:53 Insulin Lispro 100 Unit/Ml 3 Ml Vial SUBCUT 8 unit QIDACHS [facility] Administration Protocol Lactulose 30 gm 09/26/20 15:00 09/29/20 08:35 Lactulose 20 Gm/30 Ml Solution PO Not Given TID [facility] Levothyroxine Sodium 112 mcg 09/27/20 06:00 09/29/20 05:06 Levothyroxine Sodium 112 Mcg Tablet PO 112 mcg DAILY@0600 [facility] Administration Levothyroxine Sodium 25 mcg 09/27/20 06:00 09/29/20 05:06 Levothyroxine Sodium 25 Mcg Tablet PO 25 mcg DAILY@0600 [place] Administration [place] Carbonate 300 mg 09/26/20 09:00 09/29/20 08:30 [place] Carbonate 300 Mg Capsule PO 300 mg DAILY [place] Administration [place] Carbonate 600 mg 09/26/20 21:00 09/28/20 21:30 [place] Carbonate 300 Mg Capsule PO 600 mg BEDTIME [facility] Administration Medication 1 each 09/26/20 09:00 No Benzodiazepines MISCELLANE DAILY [facility] Mirtazapine 45 mg 09/26/20 21:00 09/28/20 21:30 Mirtazapine 15 Mg Tablet PO 45 mg BEDTIME [place] Administration Ondansetron HCl 4 mg 09/26/20 05:36 Ondansetron Hcl 4 Mg/2 Ml Vial IVPUSH Q8H PRN Nausea and Vomiting Pantoprazole Sodium 40 mg 09/29/20 06:30 09/29/20 05:07 Pantoprazole Sodium 40 Mg/10 Ml Vial IVPUSH 40 mg BID@0630,1630 [facility] Administration Phenobarbital 15 mg 09/28/20 21:00 09/29/20 08:30 Phenobarbital 15 Mg Tablet PO 09/30/20 09:01 15 mg BID [place] Administration Phenobarbital 15 mg 10/01/20 09:00 Phenobarbital 15 Mg Tablet PO 10/02/20 09:01 DAILY [facility] Rifaximin 550 mg 09/26/20 10:00 09/29/20 08:30 Rifaximin 550 Mg Tablet PO 550 mg BID [place] Administration Risperidone 2 mg 09/26/20 21:00 09/28/20 21:30 Risperidone 2 Mg Tablet PO 2 mg BEDTIME [place] Administration Sodium Chloride 3 ml 09/26/20 08:00 09/29/20 08:30 0.9 % Sodium Chloride Flush 3 Ml Syringe IVFLUSH Not Given QSHIFT [facility] Sucralfate 1 gm 09/28/20 16:30 09/29/20 11:53 Sucralfate 1 Gm Tablet PO 1 gm QIDACHS [place] Administration Tamsulosin HCl 0.8 mg 09/26/20 21:00 09/28/20 21:29 Tamsulosin Hcl 0.4 Mg Capsule PO 0.8 mg BEDTIME [place] Administration Thiamine HCl 100 mg 09/26/20 09:00 09/29/20 08:29 Thiamine Hcl 100 Mg Tablet PO 100 mg DAILY [place] Administration Trazodone HCl 50 mg 09/26/20 06:36 09/27/20 21:06 Trazodone Hcl 50 Mg Tablet PO 50 mg BEDTIME PRN Administration insomnia Venlafaxine HCl 37.5 mg 09/26/20 09:00 09/29/20 08:30 Venlafaxine Hcl Er 37.5 Mg Cap.Er.24h PO 37.5 mg DAILY [facility] Administration Vitamin D 50 mcg 09/26/20 09:00 09/29/20 08:30 Cholecalciferol (Vitamin D3) 25 Mcg Tablet PO 50 mcg DAILY [place] Administration Labs CBC & Chem 7: 09/29/20 06:14 09/28/20 05:12 Labs: Laboratory Results - last 24 hr 09/28/20 09/28/20 09/29/20 16:39 19:55 06:14 Hgb 8.8 L Hct 26.8 L POC Glucose 139 H 294 H 09/29/20 09/29/20 09/29/20 06:49 10:57 15:56 Hgb Hct POC Glucose 125 H 299 H 245 H Quality Stroke Does the patient have a stroke diagnosis?: No VTE Prior VTE?: No VTE Risk Level:: Medical - moderate - high VTE Device Contraindication: N/A - Device Ordered VTE Drug Contraindication: Treatment Not Indicated Assessment and Plan (1) Alcohol abuse with withdrawal: Status: Acute (2) Coffee ground emesis: Status: Acute Assessment and Plan: hospital d#4 50yo M with PMHx EtOH abuse, bipolar depression, DM2, hepatic cirrhosis, dyslipidemia, hypothyroidism presented with 3d of coffee-ground emesis, 10d of melena admitted for UGIB + bladder dilation # acute blood loss anemia due to GIB # esophageal varices # portal hypertensive gastritis - d/c octreotide gtt, give bid PPI + sucralfate, prophylactic ceftriaxone d#3, will need GI f/u for results of gastric biopsies + scheduling of repeat EGD in 2-4 wk # bladder dilation/obstructive uropathy - Del Castillo placed, Urology consult pending. continue tamsulosin + finasteride # EtOH hepatitis - MDF 25, no steroids or pentoxifylline indicated - monitor LFTs- improving # EtOH encephalopathy - lactulose + rifaximin. asterixis resolved. # EtOH withdrawal - phenobarbital taper, thiamine + folate supplements # PAULINE - resolved after Del Castillo placement, suspect postrenal obstruction # DM2 - basal/bolus insulin # hypothyroidism - continue LT4 # bipolar depression - continue mirtapazine, risperidone, lithium # EtOH use disorder - CARE team + Addiction Medicine consultations. pt interested in acamprosate and will f/u with DAR Cordova in the [facility] # VTE ppx - SCDs, no heparin given GIB
--- NOTE | 2020-09-29 16:51 | HO.ADDICT_ITS ---
History of Present Illness Date of Service: 09/29/2020 Chief Complaint: Hematemesis, GI Bleed, Alcohol Withdrawl Reason for Consult: Alcohol use disorder Interested in medications Requesting physician: Daphne Vigil Discussed with referring provider: Yes Sources of Information: patient interviewed and chart reviewed HPI Narrative: Patient is a 50-year-old male with history of alcohol use disorder And liver cirrhosis current we medically admitted after he presented to the emergency room reporting hematemesis. He was found to have elevated LFTs in as well as question of GI bleed. consult requested as patient verbalized interest in starting medications for al cohol use disorder. Please see recovery support nursing note for additional details. Patient seen in room 467. he was awake, alert, engaged in interview. Patient reporting he has a strong desire to stop drinking but has been really having a hard time. States he has been drinking since he was a teenager, but states that over the last year strengths can has worsened and is now drinking the moment he wakes up. he states that he has a tremor and feels that that is related to the alcohol use and would like that To stop. Discussed current medications including lithium which can cause tremor as a side effect, encouraged patient to discuss this with his psychiatric provider if this was a significant concern of his. He reports a is currently drinking a 6 pack daily. Denies any other illicit substance use. Denies any history of treatment. Identifies family as strong social support. Past Psychiatric History: Bipolar disorder, psychiatric provider amount time ( [facility]) Medical Evaluation Reviewed: Yes Review of Systems Review of Systems denies any symptoms related to alcohol withdrawal. Is experiencing some anxiety and rumination related to upcoming discharge and concern regarding continued drinking. Diagnostics Vital Signs (24Hr): Vital Signs - 24 hr 09/28/20 18:59 09/28/20 23:13 09/29/20 03:34 Temperature 97.8 F 98.6 F 99.7 F Pulse Rate 80 107 H 96 Respiratory Rate 16 18 20 Blood Pressure 139/80 117/68 120/70 Pulse Oximetry 94 94 94 09/29/20 07:06 09/29/20 11:21 09/29/20 13:40 Temperature 98.5 F 98.8 F Pulse Rate 91 85 Respiratory Rate 20 20 Blood Pressure 111/71 116/70 Pulse Oximetry 95 99 97 09/29/20 15:09 Temperature 97.5 F Pulse Rate 90 Respiratory Rate 16 Blood Pressure 123/69 Pulse Oximetry 96 Body Mass Index 28.1 Labs Results: 09/29/20 06:14 09/28/20 05:12 Labs: Laboratory Results - last 48 hr 09/27/20 09/28/20 09/28/20 21: 05:12 05:12 WBC 6.1 RBC 2.77 L Hgb 8.9 L Hct 27.4 L MCV 98.9 H MCH 32.1 MCHC 32.5 RDW 16.1 H Plt Count 80 L MPV 11.0 Absolute Nucleated RBC 0.000 Nucleated RBC % (auto) 0.0 Sodium 141 Potassium 3.6 Chloride 113 H Carbon Dioxide 22 Anion Gap 10 L BUN 7 L Creatinine 0.71 Estim Creat Clear Calc 124.4 Estimated GFR > 60 POC Glucose 222 H Random Glucose 167 H Calcium 7.5 L Total Bilirubin 0.8 AST 164 H ALT 222 H Alkaline Phosphatase 97 Total Protein 5.6 L Albumin 2.8 L 09/28/20 09/28/20 09/28/20 07:01 11:06 13:47 WBC RBC Hgb Hct MCV MCH MCHC RDW Plt Count MPV Absolute Nucleated RBC Nucleated RBC % (auto) Sodium Potassium Chloride Carbon Dioxide Anion Gap BUN Creatinine Estim Creat Clear Calc Estimated GFR POC Glucose 149 H 137 H 141 H Random Glucose Calcium Total Bilirubin AST ALT Alkaline Phosphatase Total Protein Albumin 09/28/20 09/28/20 09/29/20 16:39 19:55 06:14 WBC RBC Hgb 8.8 L Hct 26.8 L MCV MCH MCHC RDW Plt Count MPV Absolute Nucleated RBC Nucleated RBC % (auto) Sodium Potassium Chloride Carbon Dioxide Anion Gap BUN Creatinine Estim Creat Clear Calc Estimated GFR POC Glucose 139 H 294 H Random Glucose Calcium Total Bilirubin AST ALT Alkaline Phosphatase Total Protein Albumin 09/29/20 09/29/20 09/29/20 06:49 10:57 15:56 WBC RBC Hgb Hct MCV MCH MCHC RDW Plt Count MPV Absolute Nucleated RBC Nucleated RBC % (auto) Sodium Potassium Chloride Carbon Dioxide Anion Gap BUN Creatinine Estim Creat Clear Calc Estimated GFR POC Glucose 125 H 299 H 245 H Random Glucose Calcium Total Bilirubin AST ALT Alkaline Phosphatase Total Protein Albumin Imaging Radiology Impressions: ITS Impressions Abdomen/Pelvis CT 09/25/20 20:01 IMPRESSION: Main acute finding of note is marked dilatation of the bladder extending up above the level of the umbilicus. There is associated hydronephrosis and hydroureter with dilatation of both renal collecting systems. This is new from the prior study. There is a suggestion of a possible TURP defect within the prostate. This could be clinically correlated. Nodular cirrhotic liver with innumerable subcentimeter hypodensities but no discrete or dominant mass lesion. Sequela of portal hypertension as described above. Chest X-Ray 09/26/20 00:31 IMPRESSION: Unremarkable examination. Mental Status Exam Mental Status Exam Patient Appearance: Appropriate Patient Orientation: Person, Place, Time and Situation Level of Consciousness: Awake, Appropriate and Alert Patient Behavior: Appropriate Mood Description: Calm Affect Description: Blunted Ability to Follow Directions: Good Speech Pattern: Clear Hallucinations: None Thought Process: Intact Thought Content: positive for Intact Judgement: Fair Medications Medications Current Medications Generic Name Dose Route Start Last Admin Trade Name Freq PRN Reason Stop Dose Admin Acetaminophen 650 mg 09/26/20 05:36 Acetaminophen 325 Mg Tablet PO Q6H PRN Pain, Mild (Pain Scale 1-3) Atorvastatin Calcium 20 mg 09/26/20 21:00 09/28/20 21:30 Atorvastatin Calcium 20 Mg Tablet PO 20 mg BEDTIME [place] Administration Benztropine Mesylate 0.5 mg 09/26/20 09:00 09/29/20 08:30 Benztropine Mesylate 0.5 Mg Tablet PO 0.5 mg DAILY [place] Administration Docusate Sodium 100 mg 09/26/20 05:36 Docusate Sodium 100 Mg Capsule PO DAILY PRN Constipation Finasteride 5 mg 09/27/20 14:00 09/29/20 08:29 Finasteride 5 Mg Tablet PO 5 mg DAILY [place] Administration Folic Acid 1 mg 09/26/20 09:00 09/29/20 09:26 Folic Acid 1 Mg/0.2 Ml Syringe IM 1 mg DAILY [place] Administration Ceftriaxone Sodium 1 gm/ 50 mls @ 100 mls/hr 09/27/20 14:00 09/29/20 13:58 Sodium Chloride IV Infused Q24H [facility] Infusion Insulin Glargine 52 unit 09/27/20 21:00 09/28/20 21:31 Insulin Glargine,Hum.Rec.Anlog 100 Unit/Ml 10 Ml Vial SUBCUT 52 unit BEDTIME [place] Administration Insulin Human Lispro 0 unit 09/26/20 07:30 09/29/20 11:53 Insulin Lispro 100 Unit/Ml 3 Ml Vial SUBCUT 8 unit QIDACHS [place] Administration Protocol Lactulose 30 gm 09/26/20 15:00 09/29/20 08:35 Lactulose 20 Gm/30 Ml Solution PO Not Given TID [place] Levothyroxine Sodium 112 mcg 09/27/20 06:00 09/29/20 05:06 Levothyroxine Sodium 112 Mcg Tablet PO 112 mcg DAILY@0600 [place] Administration Levothyroxine Sodium 25 mcg 09/27/20 06:00 09/29/20 05:06 Levothyroxine Sodium 25 Mcg Tablet PO 25 mcg DAILY@0600 [place] Administration [place] Carbonate 300 mg 09/26/20 09:00 09/29/20 08:30 [place] Carbonate 300 Mg Capsule PO 300 mg DAILY [place] Administration [place] Carbonate 600 mg 09/26/20 21:00 09/28/20 21:30 [place] Carbonate 300 Mg Capsule PO 600 mg BEDTIME [place] Administration Medication 1 each 09/26/20 09:00 No Benzodiazepines MISCELLANE DAILY [facility] Mirtazapine 45 mg 09/26/20 21:00 09/28/20 21:30 Mirtazapine 15 Mg Tablet PO 45 mg BEDTIME [place] Administration Ondansetron HCl 4 mg 09/26/20 05:36 Ondansetron Hcl 4 Mg/2 Ml Vial IVPUSH Q8H PRN Nausea and Vomiting Pantoprazole Sodium 40 mg 09/29/20 06:30 09/29/20 05:07 Pantoprazole Sodium 40 Mg/10 Ml Vial IVPUSH 40 mg BID@0630,1630 [place] Administration Phenobarbital 15 mg 09/28/20 21:00 09/29/20 08:30 Phenobarbital 15 Mg Tablet PO 09/30/20 09:01 15 mg BID [place] Administration Phenobarbital 15 mg 10/01/20 09:00 Phenobarbital 15 Mg Tablet PO 10/02/20 09:01 DAILY [place] Rifaximin 550 mg 09/26/20 10:00 09/29/20 08:30 Rifaximin 550 Mg Tablet PO 550 mg BID [place] Administration Risperidone 2 mg 09/26/20 21:00 09/28/20 21:30 Risperidone 2 Mg Tablet PO 2 mg BEDTIME [place] Administration Sodium Chloride 3 ml 09/26/20 08:00 09/29/20 08:30 0.9 % Sodium Chloride Flush 3 Ml Syringe IVFLUSH Not Given QSHIFT [facility] Sucralfate 1 gm 09/28/20 16:30 09/29/20 11:53 Sucralfate 1 Gm Tablet PO 1 gm QIDACHS [place] Administration Tamsulosin HCl 0.8 mg 09/26/20 21:00 09/28/20 21:29 Tamsulosin Hcl 0.4 Mg Capsule PO 0.8 mg BEDTIME [facility] Administration Thiamine HCl 100 mg 09/26/20 09:00 09/29/20 08:29 Thiamine Hcl 100 Mg Tablet PO 100 mg DAILY [place] Administration Trazodone HCl 50 mg 09/26/20 06:36 09/27/20 21:06 Trazodone Hcl 50 Mg Tablet PO 50 mg BEDTIME PRN Administration insomnia Venlafaxine HCl 37.5 mg 09/26/20 09:00 09/29/20 08:30 Venlafaxine Hcl Er 37.5 Mg Cap.Er.24h PO 37.5 mg DAILY [place] Administration Vitamin D 50 mcg 09/26/20 09:00 09/29/20 08:30 Cholecalciferol (Vitamin D3) 25 Mcg Tablet PO 50 mcg DAILY [place] Administration Allergies Allergies Allergy/AdvReac Type Severity Reaction Status Date / Time No Known Allergies Allergy Verified 09/26/20 00:22 [No Known Allergies*] Assessment & Plan Assessment & Plan (1) Alcohol use disorder, severe, dependence: Status: Acute Code(s): F10.20 - Alcohol dependence, uncomplicated Recommendations: * Due to elevated LFTs, naltrexone not an option at this time. * Campral discussed with patient, including goals of treatment dosing times side effects. * patient declining additional referrals at this time, but follow-up appointment and at [facility] has been scheduled and additional supports will be offered Greater than 50% of the session was spent on counseling and/or coordination of care [facility] Past Medical History Medical History Abnormal liver function test Bipolar depression Bipolar disorder BPH (benign prostatic hyperplasia) Cirrhosis Diabetes Diabetes mellitus type 2, uncontrolled Diabetes type 2, uncontrolled Diabetic nephropathy associated with type 2 diabetes mellitus Dyslipidemia Elevated LFTs Hypothyroidism 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, 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 Obesity (BMI 30-39.9) Postablative hypothyroidism Pure hypercholesterolemia Scrotal wall abscess Urinary retention Vitamin D deficiency Family History Family History Father Diabetes Mother Diabetes Maternal Aunt Family history of thyroid problem Surgical History Surgical History History of arthroscopy of left knee History of laparoscopic cholecystectomy Hx of colonoscopy Social History Social History Household Members: None Housing: House Do you presently have visiting nurse or other home services: Yes Alcohol intake: current Alcohol intake frequency: a few times a week Patient Tobacco Use Status: Never used Tobacco service: No Current occupational status: unemployed
[2020-09-29] MEDS: 0.9 % Sodium Chloride Flush 3 ML SYRINGE IVFLUSH ×2 (17:04→21:11)
[2020-09-29 19:56] LABS: Glucose, Whole Blood 304 mg/dL (60-115)
[2020-09-29] MEDS: Mirtazapine 15 MG TABLET 45 MG PO (21:10)
[2020-09-29] MEDS: Tamsulosin HCL 0.4 MG CAPSULE 0.8 MG PO (21:11)
[2020-09-29] MEDS: Lithium Carbonate 300 MG CAPSULE 600 MG PO (21:11)
[2020-09-29] MEDS: Atorvastatin Calcium 20 MG TABLET PO (21:11)
[2020-09-29] MEDS: risperiDONE 2 MG TABLET PO (21:11)
[2020-09-29] MEDS: Insulin Glargine,Hum.rec.anlog 100 UNIT/ML 10 ML VIAL 52 UNIT SUBCUT (21:12)
[2020-09-29] MEDS: traZODone HCL 50 MG TABLET PO (21:16)
[2020-09-30 03:40] VITALS: BP 116/66; PULSE 97; RESP 20; TEMP 37; O2SAT 92
[2020-09-30] MEDS: Pantoprazole Sodium 40 MG/10 ML VIAL IVPUSH (05:32)
[2020-09-30] MEDS: Levothyroxine Sodium 112 MCG TABLET PO (05:32)
[2020-09-30] MEDS: Levothyroxine Sodium 25 MCG TABLET PO (05:32)
[2020-09-30 07:06] VITALS: BP 106/59; PULSE 91; RESP 18; TEMP 36.7; O2SAT 94
[2020-09-30 07:25] LABS: Glucose, Whole Blood 153 mg/dL (60-115)
[2020-09-30] MEDS: Finasteride 5 MG TABLET PO (08:27)
[2020-09-30] MEDS: Sucralfate 1 GM TABLET PO ×2 (08:27→11:54)
[2020-09-30] MEDS: Cholecalciferol (Vitamin D3) 25 MCG TABLET 50 MCG PO (08:27)
[2020-09-30] MEDS: Insulin Lispro 100 UNIT/ML 3 ML VIAL SUBCUT ×2 (08:27→11:54)
[2020-09-30] MEDS: rifAXIMin 550 MG TABLET PO (08:27)
[2020-09-30] MEDS: Benztropine Mesylate 0.5 MG TABLET PO (08:28)
[2020-09-30] MEDS: Thiamine HCL 100 MG TABLET PO (08:28)
[2020-09-30] MEDS: Venlafaxine HCl ER 37.5 MG CAP.ER.24H PO (08:28)
[2020-09-30] MEDS: PHENobarbitaL 15 MG TABLET PO (08:28)
[2020-09-30] MEDS: Lithium Carbonate 300 MG CAPSULE PO (08:28)
[2020-09-30] MEDS: 0.9 % Sodium Chloride Flush 3 ML SYRINGE IVFLUSH (08:29)
[2020-09-30 11:07] VITALS: BP 113/59; PULSE 98; RESP 18; TEMP 36.6; O2SAT 97
[2020-09-30 11:41] LABS: Glucose, Whole Blood 325 mg/dL (60-115)
--- NOTE | 2020-09-30 13:43 | MHC.CM.PN ---
Patient has been medically cleared for dc to home today/with services. A referral was made to [facility], who has been notified of today's dc.Patient has been reminded in writing of his 10/07/20 10:30 AM appointment with [facility].Second IMM addressed with Patient and original has been given to him and a copy has been placed on the chart.Patient is aware of and pleased with the dc plan and his Girlfriend will provide transportation to home.
--- NOTE | 2020-09-30 13:55 | P.DS_ITS ---
DS: Providers Provider Date of Service: 09/30/20 Date of admission: 09/26/20 00:59 Primary care physician: Dakota Reilly MD Consults: 09/26/20 05:36 Consult to Gastroenterology Routine Consulting Provider: Jade Douglas Reason for consultation: Hematemesis in alcohol abuse pt Has provider been notified: No 09/26/20 08:35 Consult to Urology Routine Consulting Provider: [facility] Reason for consultation: urinary retention? TURP defect 09/26/20 15:41 Consult to Care Team Routine Comment: Reason for consultation: EtOH 09/28/20 08:13 Addiction Medicine Routine Consulting Provider: Raisa Cordova Reason for consultation: EtOH cirrhosis DS: Diagnosis Discharge Diagnosis (1) Alcohol use disorder, severe, dependence: Status: Acute (2) Alcohol abuse with withdrawal: Status: Acute (3) Acute upper gastrointestinal bleeding: Status: Acute (4) Cirrhosis: Status: Acute (5) Varices of esophagus determined by endoscopy: Status: Acute (6) Portal hypertensive gastropathy: Status: Acute (7) Hepatic encephalopathy: Status: Acute (8) Alcoholic hepatitis: Status: Acute (9) Obstructive uropathy: Status: Acute (10) Acute kidney failure: Status: Acute (11) BPH (benign prostatic hyperplasia): Status: Acute DS: Medications Discharge Medications Home Medications: Home Medications Medication Instructions Recorded Confirmed benztropine 0.5 mg tablet 0.5 mg PO DAILY 02/14/20 09/26/20 mirtazapine 45 mg tablet 45 mg PO BEDTIME 02/14/20 09/26/20 risperidone 2 mg tablet 2 mg PO BEDTIME 02/14/20 09/26/20 lithium carbonate 300 mg tablet See Rx Instructions PO .COMPLEX 04/17/20 09/26/20 trazodone 50 mg tablet See Rx Instructions PO BEDTIME PRN 04/17/20 09/26/20 tab venlafaxine 1 cap PO DAILY 09/26/20 09/26/20 Previous Rx's Medication Instructions Recorded tamsulosin 0.4 mg capsule 0.8 mg PO BEDTIME #60 cap 04/17/20 cholecalciferol (vitamin D3) 50 50 mcg PO DAILY 90 Days #90 cap 07/21/20 mcg (2,000 unit) capsule dulaglutide 3 mg/0.5 mL 3 mg SUBCUT QWEEK 30 Days #2.5 ml 07/21/20 subcutaneous pen injector empagliflozin 25 mg tablet 25 mg PO DAILY 90 Days #90 tab 07/21/20 insulin glargine U-300 conc 300 60 unit SUBCUT DAILY 30 Days #6 ml 07/21/20 unit/mL (1.5 mL) subcutaneous pen insulin lispro-aabc 100 unit/mL 20 unit SUBCUT TID 30 Days #18 ml 07/21/20 subcutaneous pen levothyroxine 137 mcg tablet 137 mcg PO QAM 30 Days #30 tab 07/21/20 atorvastatin 20 mg tablet 20 mg PO BEDTIME #30 tab 08/13/20 acamprosate 666 mg PO TID #90 tab 09/29/20 carvedilol 3.125 mg PO BID #60 tab 09/29/20 finasteride [Proscar] 5 mg PO DAILY #30 tab 09/29/20 folic acid 1 mg PO DAILY #30 tab 09/29/20 lactulose 30 g PO TID #1500 ml 09/29/20 pantoprazole 40 mg PO BID #60 tab 09/29/20 rifaximin [Xifaxan] 550 mg PO BID #60 tab 09/29/20 sucralfate 1 g PO BID #60 tab 09/29/20 thiamine mononitrate (vit B1) 100 mg PO DAILY #30 tab 09/29/20 DS: Summary Hospital Course Hospital Course: from admission history and physical by hospitalist Mac Og, 09/26/20: This is a 50-year-old male with a past medical history of alcohol abuse, bipolar depression, diabetes, liver cirrhosis, dyslipidemia, hypothyroidism, among others who presents to the hospital with complaints of vomiting blood for the past 3 days. Patient reports that he was having nausea, had vomiting for past 3 day multiple episode a day and each time had large amount of blood. He is complaining of pain in the right lower abdominal quadrant, he has also had black stools for the past 10 days. Abdominal pain is 7/10, crampy, nonradiating, patient is also complaining of stabbing left-sided chest pain that is intermittent and chronic for few months. He has had no similar episode in the past. Patient is a chronic alcohol drinker and drinks about 6 pack beer a day. On arrival to the ED patient vitals significant for temp of 98.6?, respiratory rate of 15 to 20, heart rate of 92, blood pressure 142/85, satting 90% on room air Labs are significant for WBC count of 15.7, hemoglobin of 10.9 was had dropped from 15.3 in August of 2028 this year, hematocrit 31.04, PT of 18.2, INR of 1.5, BUN of 33, creatinine of 1.2 with a baseline around 0.9, total bili of 1.4, AST of 327, ALT of 392, alk-phos of 120, (these numbers are chronically elevated but this x3 times higher), UA positive for glucose, stool occult blood positive, negative for COVID, Main acute finding of note is marked dilatation of the bladder extending up above the level of the umbilicus, associated hydronephrosis and hydroureter with dilatation of both renal collecting systems, suggestion of a possible TURP defect within the prostate, nodular cirrhotic liver with innumerable subcentimeter hypodensities but no discrete or dominant mass lesion. Portal hypertension The patient was admitted to [place] [facility] [place] suspected upper GI bleed. He was given IV PPI infusion and octreotide drip. EGD was done on 09/28/[address] Douglas and showed: Esophagus: GE junction at 38 cm, diaphragm hiatus at 38 cm, 3 variceal columns noted grade II, no high risk stigmata, but extended into the stomach i.e type 1 GOV, 4 bands applied with good effect Stomach: Patchy gastric erythema and mosaic pattern consistent with portal hypertensive gastritis. Biopsies were obtained to r/o h pylori. Grade 2 flap valve on retroflexed examination of the cardia, gastric varix extending from esophagus noted ie: type 1 GOV Duodenum: Normal bulb and descending duodenum, bx taken He was switched to PO PPI and sucralfate. He was discharged on carvedilol for prevention of future variceal hemorrhage; this should be titrated as an outpa tient to achieve a heart rate of around 65 bpm. He will follow up with Dr Douglas in 2 weeks to discuss the results of the gastric/duodenal biopsies and to schedule a repeat EGD. He had alcoholic hepatitis with Maddrey discriminant function of 25, not meeting threshold for steroid or pentoxifylline treatment. Another complication of his decompensated alcoholic cirrhosis was hepatic encephalopathy causing asterixis. This resolved with rifaximin and lactulose. He was treated with phenobarbital taper for alcohol withdrawal. Sobriety was counseled, and he expressed interested in starting acamprosate and will follow up with the [facility] in 1 week. As for bladder dilation/obstructive uropathy, a Del Castillo placed and Urology was consulted. Tamsulosin was continued and finasteride added. He passed a voiding trial and will follow up with Urology in 2-3 weeks. Acute kidney injury resolved after placement of the Del Castillo, indicating the PAULINE was due to postrenal obstruction. Time Spent with Patient Time attestation: Total time spent providing and/or coordinating discharge services: 50 Discharge coordination time: Greater than 30 minutes Quality: Stroke Does the patient have a stroke diagnosis?: No Physical Exam Vital Signs: Vital Signs: Last Vital Signs Temp 97.8 F 09/30/20 11:07 Pulse 98 09/30/20 11:07 Resp 18 09/30/20 11:07 BP 113/59 L 09/30/20 11:07 Pulse Ox 97 09/30/20 11:07 Body Mass Index 28.1 Gen: in no acute distress HEENT: sclera anicteric, moist mucus membranes Neck: supple Lungs: clear to auscultation bilaterally Heart: regular rate and rhythm, no murmurs Abd: soft, NT, non-distended Ext: no edema Skin: warm/well-perfused Neuro: alert and oriented x3, asterixis absent Psych: appropriate affect DS: Data Data Completed and Pending Completed studies during hospitalization [Text1]: Laboratory Results WBC 6.1 X10*3/uL (4.8-10.8) 09/28/20 05:12 RBC 2.77 X10*6/uL (4.60-5.80) L 09/28/20 05:12 Hgb 8.8 g/dl (14.0-18.0) L 09/29/20 06:14 Hct 26.8 % (42-52) L 09/29/20 06:14 MCV 98.9 fL (80-98) H 09/28/20 05:12 MCH 32.1 pg (27.0-33.0) 09/28/20 05:12 MCHC 32.5 g/dl (31.0-36.0) 09/28/20 05:12 RDW 16.1 % (11.0-16.0) H 09/28/20 05:12 Plt Count 80 X10*3/uL (160-400) L 09/28/20 05:12 MPV 11.0 fL (9.4-12.4) 09/28/20 05:12 Immature Gran % (Auto) 0.8 % (0.0-0.4) H 09/27/20 05:47 Neut % (Auto) 56.0 % (45-73) 09/27/20 05:47 Lymph % (Auto) 21.6 % (20-40) 09/27/20 05:47 Benson % (Auto) 19.4 % (2-11) H 09/27/20 05:47 Eos % (Auto) 1.7 % (0-4) 09/27/20 05:47 Baso % (Auto) 0.5 % (0-2) 09/27/20 05:47 Lymph # (Auto) 1.7 X10*3/uL (1.2-4.9) 09/27/20 05:47 Benson # (Auto) 1.5 X10*3/uL (0.1-1.2) H 09/27/20 05:47 Eos # (Auto) 0.1 X10*3/uL (0.0-0.4) 09/27/20 05:47 Baso # (Auto) 0.0 X10*3/uL (0.0-0.2) 09/27/20 05:47 Abs Immat Gran (auto) 0.06 X10*3/uL (0.00-0.03) H 09/27/20 05:47 Absolute Neuts (auto) 4.3 X10*3/uL (2.0-8.3) 09/27/20 05:47 Absolute Nucleated RBC 0.000 X10*3/uL (0.0-0.012) 09/28/20 05:12 Nucleated RBC % (auto) 0.0 /100WBC (0.0-0.2) 09/28/20 05:12 Smear Tech's Comments VERIFIED 09/25/20 20:28 PT 17.5 SEC (10.8-13.0) H 09/27/20 05:47 INR 1.5 (0.9-1.1) H 09/27/20 05:47 Sodium 141 mmol/L (135-145) 09/28/20 05:12 Potassium 3.6 mmol/L (3.3-5.1) 09/28/20 05:12 Chloride 113 mmol/L (96-108) H 09/28/20 05:12 Carbon Dioxide 22 mmol/L (22-29) 09/28/20 05:12 Anion Gap 10 (12-20) L 09/28/20 05:12 BUN 7 mg/dL (9-16) L 09/28/20 05:12 Creatinine 0.71 mg/dL (0.5-1.4) 09/28/20 05:12 Estim Creat Clear Calc 124.4 09/28/20 05:12 Estimated GFR > 60 09/28/20 05:12 POC Glucose 325 mg/dL (60-115) H 09/30/20 11:29 Random Glucose 167 mg/dL (60-115) H 09/28/20 05:12 Calcium 7.5 mg/dL (8.4-10.2) L 09/28/20 05:12 Magnesium 2.1 mg/dL (1.6-2.6) 09/27/20 05:47 Total Bilirubin 0.8 mg/dL (0.0-1.0) 09/28/20 05:12 Direct Bilirubin 0.6 mg/dL (0.0-0.5) H 09/27/20 05:47 AST 164 U/L (5-37) H 09/28/20 05:12 ALT 222 U/L (0-40) H 09/28/20 05:12 Alkaline Phosphatase 97 U/L (39-117) 09/28/20 05:12 Ammonia 73 umol/L (13-55) H 09/26/20 07:21 Troponin I High Sens 5.3 ng/L (<3.5-35.0) 09/25/20 20:28 Total Protein 5.6 g/dL (6.5-8.0) L 09/28/20 05:12 Albumin 2.8 g/dL (3.5-5.0) L 09/28/20 05:12 Lipase 66 U/L (8-78) 09/25/20 20:28 Urine Color YELLOW 09/25/20 22:13 Urine Appearance CLEAR 09/25/20 22:13 Urine pH 6.0 (5.0-8.0) 09/25/20 22:13 Ur Specific [place] <= 1.005 (1.005-1.025) 09/25/20 22:13 Urine Protein NEG MG/DL (NEG-TRACE) 09/25/20 22:13 Urine Glucose (UA) >=1000 MG/DL (NEG) H 09/25/20 22:13 Urine Ketones 15 MG/DL (NEG) 09/25/20 22:13 Urine Blood NEG (NEG) 09/25/20 22:13 Urine Nitrite NEG (NEG) 09/25/20 22:13 Ur Leukocyte Esterase NEG (NEG) 09/25/20 22:13 Urine RBC 0-2 /HPF (0) 09/25/20 22:13 Urine WBC 0 /HPF (0-4) 09/25/20 22:13 Ur Squamous Epith Cells NONE /LPF 09/25/20 22:13 Urine Bacteria NONE /LPF 09/25/20 22:13 Stool Occult Blood POSITIVE (NEGATIVE) 09/26/20 00:27 COVID-19 (ARTEMIO) Negative (Negative) 09/26/20 01:07 COVID-19 Clin Com See Note 09/26/20 01:07 Blood Type A Positive 09/26/20 00:27 Antibody Screen NEGATIVE 09/26/20 00:27 Impressions Abdomen/Pelvis CT 09/25/20 20:01 IMPRESSION: Main acute finding of note is marked dilatation of the bladder extending up above the level of the umbilicus. There is associated hydronephrosis and hydroureter with dilatation of both renal collecting systems. This is new from the prior study. There is a suggestion of a possible TURP defect within the prostate. This could be clinically correlated. Nodular cirrhotic liver with innumerable subcentimeter hypodensities but no discrete or dominant mass lesion. Sequela of portal hypertension as described above. Chest X-Ray 09/26/20 00:31 IMPRESSION: Unremarkable examination. Pending studies at discharge: Pending at discharge 09/28/20 14:53 Surgical [PTH] Routine [from gastric and duodenal biopsies from EGD 09/28/20] Discharge Plan Discharge Patient Disposition: Home Health Service Discharge Diagnosis: upper GI bleeding from esophageal varices and portal hy pertensive gastritis hepatic encephalopathy decompensated liver cirrhosis Referrals: Iris BUSTILLOS [Outside] - 1 Week Dakota Reilly MD [Primary Care Provider] - 1 Week Jade Douglas MD [Physician] - 2 Weeks Raisa Cordova CNP [Nurse Practitioner] - 1 Week Discharge Medications: New Xifaxan 550 mg Tablet 550 mg PO BID Qty: 60 RF: 0 sucralfate 1 gram Tablet 1 g PO BID Qty: 60 RF: 0 finasteride [Proscar] 5 mg Tablet 5 mg PO DAILY Qty: 30 RF: 0 thiamine mononitrate (vit B1) 100 mg Tablet 100 mg PO DAILY Qty: 30 RF: 0 folic acid 1 mg tablet 1 mg PO DAILY Qty: 30 RF: 0 pantoprazole 40 mg tablet,delayed release (DR/EC) 40 mg PO BID Qty: 60 RF: 0 carvedilol 3.125 mg tablet 3.125 mg PO BID Qty: 60 RF: 0 lactulose 20 gram/30 mL Solution 30 g PO TID Qty: 1500 RF: 0 acamprosate 333 mg tablet,delayed release (DR/EC) 666 mg PO TID Qty: 90 RF: 0 Continued atorvastatin 20 mg tablet 20 mg PO BEDTIME Qty: 30 RF: 3 venlafaxine 37.5 mg capsule,extended release 24hr 1 cap PO DAILY RF: 0 mirtazapine 45 mg tablet 45 mg PO BEDTIME RF: 0 benztropine 0.5 mg tablet 0.5 mg PO DAILY RF: 0 risperidone 2 mg tablet 2 mg PO BEDTIME RF: 0 lithium carbonate 300 mg tablet See Rx Instructions PO .COMPLEX RF: 0 trazodone 50 mg tablet See Rx Instructions PO BEDTIME PRN (Reason: insomnia) RF: 0 tamsulosin 0.4 mg capsule 0.8 mg PO BEDTIME Qty: 60 RF: 6 Jardiance 25 mg tablet 25 mg PO DAILY 90 Days Qty: 90 RF: 1 Toujeo SoloStar U-300 Insulin 300 unit/mL (1.5 mL) insulin pen 60 unit subcut DAILY 30 Days Qty: 6 RF: 5 Lyumjev KwikPen U-100 Insulin 100 unit/mL insulin pen 20 unit subcut TID 30 Days Qty: 18 RF: 5 Trulicity 3 mg/0.5 mL pen injector 3 mg subcut QWEEK 30 Days Qty: 2.5 RF: 6 cholecalciferol (vitamin D3) 50 mcg (2,000 unit) capsule 50 mcg PO DAILY 90 Days Qty: 90 RF: 4 levothyroxine 137 mcg tablet 137 mcg PO QAM 30 Days Qty: 30 RF: 5 Discontinued clonazepam 1 mg tablet 1 mg PO BID PRN (Reason: Anxiety) RF: 0 Discharge Orders: Discharge Order (Routine); Ordered 09/30/20 Ordered By: Daphne Vigil Diet: diabetic diet Activity on Discharge: no alcohol Stand Alone Forms: Patient Portal Discharge page, Community Support Other Ambulatory Orders: Complete Blood Count Auto Diff (Routine) Timeframe: 2 Weeks Facility: [facility] - Location: Laboratory Ordered By: Daphne Vigil Comprehensive Met. Panel (Routine) Timeframe: 2 Weeks Facility: [facility] - Location: Laboratory Ordered By: Daphne Vigil Prothrombin Time INR (Routine) Timeframe: 2 Weeks Facility: [facility] - Location: Laboratory Ordered By: Daphne Vigil Care Plan Goals: sobriety avoidance of complications of cirrhosis Health Concerns: upper GI bleeding from esophageal varices and portal hypertensive gastritis hepatic encephalopathy decompensated liver cirrhosis Plan of Treatment: avoid all alcohol follow up with your primary care doctor, Dr Reilly, in 1 week obtain lab studies in 2 weeks: CBCd, CMP, PT/INR. you do not need to fast for these follow up with shoemaker apprentice Dr Douglas, in 2-3 weeks. you will need a repeat endoscopy [address] [place] [address] [address] [place] [address] follow up with urologist Dr Chiang in [address] [place] [address], [address] [place] [address] follow up with field artillery operations specialist Raisa Cordova NP in 1 week [facility] [address], [address] [place] [address] take carvedilol 3.125 mg twice daily [blood pressure medication] to decrease risk of bleeding from varices take pantoprazole 40 mg twice daily [acid rashad] and sucralfate 1 g twice daily [ulcer medication] to treat gastritis take rifaximin 550 mg twice daily [non-absorbed antibiotic] and lactulose 30 grams 3x daily [laxative] to prevent hepatic encephalopathy take thiamine 100 mg once daily and folate 1 mg once daily [both are B vitamins] take finasteride 5 mg once daily to shrink the prostate; continue tamsulosin 0.8 mg at bedtime take acamprosate 666 mg 3x a day to maintain sobriety Assessment: as above Patient Instructions: Cirrhosis (DC), Hepatic Encephalopathy (DC), Abuse of Alcohol (DC), Esophageal Varices (DC)
--- NOTE | 2020-09-30 14:13 | W.MHC.F2F ---
Service Date Service Date: 09/30/20 Encounter Date of encounter: 09/30/20 Reasons for Services Reason for senior care: neurological assessment, diabetic teaching, medication management, medication treatment, teach disease management and GI/ assessment Reason for physical therapy: home safety and mobility, therapeutic exercises, gait/transfer training, assess need for DME, ADL training and energy conservation Reason for occupational therapy: energy conservation MD Overseeing Care: Dakota Reilly Homebound: Leaving the home is medically contraindicated at this time without the asist of a device and/or another person due th the listed conditions above and below. Reason homebound: unsteady gait / fall risk and weakness related to hospital stay Certification: Based on the above findings, I certify that this patient is confined to the home and needs intermittent senior care care, physical therapy and/or speech therapy, or continues to need occupational therapy. The patient is under my care, and I have initiated the establishment of the plan of care. The patient will be followed by a physician who will periodically review the plan of care.
--- NOTE | 2020-09-30 15:00 | MHC.CM.PN ---
CORRECTION- [facility] is active [facility], not [facility]. Referral made in [facility] to [facility] and CM spoke with Chelsie in [facility] Int[facility], who confirmed that Patient is already set up with a RN visit for tomorrow. with Rocio.
== END 2020-09-30 14:28 | disposition home health service (06) | DRG 432 ==
LOC: HO.ED 09-26 00:32 → HO.EDOVER 09-26 01:44 → HO.IMC 09-26 03:43
PROVIDERS: Internal Medicine Gastroenterology; Admitting Provider Internal Medicine; Emergency Provider Internal Medicine; PCP Internal Medicine; Visit Provider Family Medicine
PROC: 0DJ08ZZ Inspection of Upper Intestinal Tract, Via Natural or Artificial Opening Endoscopic (ICD-10-PCS; CPT 43235; principal; 2020-09-28 15:00)
DX: K70.40 Alcoholic hepatic failure without coma (principal); I85.11 Secondary esophageal varices with bleeding; N17.9 Acute kidney failure, unspecified; D62 Acute posthemorrhagic anemia; K76.6 Portal hypertension; F10.239 Alcohol dependence with withdrawal, unspecified; N13.8 Other obstructive and reflux uropathy; K70.10 Alcoholic hepatitis without ascites; E11.65 Type 2 diabetes mellitus with hyperglycemia; E03.9 Hypothyroidism, unspecified; K70.30 Alcoholic cirrhosis of liver without ascites; N40.1 Benign prostatic hyperplasia with lower urinary tract symptoms; F31.9 Bipolar disorder, unspecified; Z20.822 Contact with and (suspected) exposure to COVID-19; F17.210 Nicotine dependence, cigarettes, uncomplicated; Z71.6 Tobacco abuse counseling; Z79.4 Long term (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 of insulin; Z79.890 Hormone replacement therapy; Z79.899 Other long term (current) drug therapy
CPT/HCPCS: 36415; 71045; 74177; 80048; 80053; 80076; 81001; 82140; 82272; 82947; 83690; 83735; 84484; 85014; 85018; 85025; 85027; 85610; 86850; 86900; 86901; 87635; 88305; 88342; 93005; 99285; C1758; J0696; J2060; J2354; J2405; J2560; Q9967

== ENCOUNTER 2020-10-07 09:31 | Outpatient (REF) | payer MEDICARE, MEDICAID, SELFPAY ==
[2020-10-07 10:32] LABS: MANUAL DIFF FLAG NO
[2020-10-07 10:43] LABS: Basophils Absolute Auto 0.1 X10*3/uL (0.0-0.2); Basophils Percent Auto 1.1 % (0-2); Eosinophils Absolute Auto 0.3 X10*3/uL (0.0-0.4); Eosinophils Percent Auto 3.4 % (0-4); Hematocrit 33.2 % (42-52); Hemoglobin 10.7 g/dl (14.0-18.0); INTERNATIONAL NORM RATIO 1.3 (0.9-1.1); Imm Gran Abs Auto 0.04 X10*3/uL (0.00-0.03); Imm Gran Pct Auto 0.4 % (0.0-0.4); Lymphocytes Absolute Auto 1.8 X10*3/uL (1.2-4.9); Lymphocytes Percent Auto 18.2 % (20-40); Mean Corpuscular HGB Conc 32.2 g/dl (31.0-36.0); Mean Corpuscular Hemoglobin 30.7 pg (27.0-33.0); Mean Corpuscular Volume 95.4 fL (80-98); Mean Platelet Volume 10.9 fL (9.4-12.4); Monocytes Absolute Auto 1.4 X10*3/uL (0.1-1.2); Monocytes Percent Auto 14.2 % (2-11); Neutrophils Absolute Auto 6.3 X10*3/uL (2.0-8.3); Neutrophils Percent Auto 62.7 % (45-73); Platelet Count 182 X10*3/uL (160-400); Red Blood Count 3.48 X10*6/uL (4.60-5.80); Red Cell Distribution Width 16.3 % (11.0-16.0)
[2020-10-07 11:08] LABS: Alanine Aminotransferase 80 U/L (0-40); Albumin Level 3.7 g/dL (3.5-5.0); Alkaline Phosphatase 160 U/L (39-117); Anion Gap 13 (12-20); Aspartate Amino Transferase 78 U/L (5-37); Bilirubin Total 0.6 mg/dL (0.0-1.0); Blood Urea Nitrogen 7 mg/dL (9-16); Calcium 8.7 mg/dL (8.4-10.2); Carbon Dioxide 21 mmol/L (22-29); Chloride 111 mmol/L (96-108); Estimated Glomerular Filt Rate > 60; Glucose Random 102 mg/dL (60-115); Potassium 4.3 mmol/L (3.3-5.1); Sodium 141 mmol/L (135-145); Total Protein 7.7 g/dL (6.5-8.0)
== END 2020-10-07 09:32 | disposition home or self-care (01) ==
LOC: HO.LAB 09:31
PROVIDERS: Absent Provider Internal Medicine; PCP Internal Medicine; Visit Provider Family Medicine
DX: K74.60 Unspecified cirrhosis of liver (principal)
CPT/HCPCS: 36415; 80053; 85025; 85610; Q3014

== ENCOUNTER 2020-10-30 11:22 | Outpatient (REF) | payer MEDICARE, MEDICAID, SELFPAY ==
[2020-10-30 13:15] LABS: MANUAL DIFF FLAG NO
[2020-10-30 13:19] LABS: Basophils Absolute Auto 0.1 X10*3/uL (0.0-0.2); Basophils Percent Auto 0.8 % (0-2); Eosinophils Absolute Auto 0.3 X10*3/uL (0.0-0.4); Eosinophils Percent Auto 3.4 % (0-4); Hematocrit 32.1 % (42-52); Hemoglobin 10.2 g/dl (14.0-18.0); Imm Gran Abs Auto 0.02 X10*3/uL (0.00-0.03); Imm Gran Pct Auto 0.3 % (0.0-0.4); Lymphocytes Absolute Auto 2.4 X10*3/uL (1.2-4.9); Lymphocytes Percent Auto 31.1 % (20-40); Mean Corpuscular HGB Conc 31.8 g/dl (31.0-36.0); Mean Corpuscular Hemoglobin 27.7 pg (27.0-33.0); Mean Corpuscular Volume 87.2 fL (80-98); Mean Platelet Volume 10.8 fL (9.4-12.4); Monocytes Absolute Auto 0.9 X10*3/uL (0.1-1.2); Monocytes Percent Auto 12.2 % (2-11); Neutrophils Percent Auto 52.2 % (45-73); Platelet Count 121 X10*3/uL (160-400); Red Blood Count 3.68 X10*6/uL (4.60-5.80); Red Cell Distribution Width 16.2 % (11.0-16.0); White Blood Count 7.6 X10*3/uL (4.8-10.8)
[2020-10-30 13:28] LABS: Estimated Average Glucose 174 mg/dL; Hemoglobin A1c % 7.7 %
[2020-10-30 13:35] LABS: Glucose Urine UA >=1000 MG/DL (NEG); Leukocyte Esterase Urine NEG (NEG); Nitrite Urine NEG (NEG); PH 6.5 (5.0-8.0); Specific Gravity - Urine <= 1.005 (1.005-1.025); Urine Blood NEG (NEG); Urine Ketones NEG (NEG); Urine Protein NEG (NEG-TRACE)
[2020-10-30 13:37] LABS: Appearance Urine CLEAR; Color Urine YELLOW
[2020-10-30 13:43] LABS: Creatinine Urine 26.84 mg/dL; Microalbumin Urine < 5.0 mg/L
[2020-10-30 13:46] LABS: Alanine Aminotransferase 31 U/L (0-40); Albumin Level 3.7 g/dL (3.5-5.0); Alkaline Phosphatase 109 U/L (39-117); Anion Gap 12 (12-20); Aspartate Amino Transferase 48 U/L (5-37); Bilirubin Total 0.6 mg/dL (0.0-1.0); Blood Urea Nitrogen 7 mg/dL (9-16); Calcium 9.1 mg/dL (8.4-10.2); Carbon Dioxide 20 mmol/L (22-29); Chloride 112 mmol/L (96-108); Cholesterol 120 mg/dL; Estimated Glomerular Filt Rate > 60; Glucose Fasting 164 mg/dL (60-99); HDL Cholesterol 42 mg/dL; LDL Cholesterol Calculated 68 mg/dl; Potassium 3.9 mmol/L (3.3-5.1); Sodium 140 mmol/L (135-145); Total Protein 7.6 g/dL (6.5-8.0); Triglycerides 53 mg/dL
[2020-10-30 13:47] LABS: RBC Urine 0-2 /HPF (0); Squamous Epithelial Cell Urine TRACE /LPF; WBC Urine 0 /HPF (0-4)
[2020-10-30 14:07] LABS: Free T4 (Free Thyroxine) 1.15 ng/dL (0.71-1.85); Thyroid Stimulating Hormone 0.77 uIU/mL (0.32-4.0); Vitamin D 25-OH Total 43.6 ng/mL (>30)
== END 2020-10-30 11:23 | disposition home or self-care (01) ==
LOC: HO.LAB 11:22
PROVIDERS: PCP Internal Medicine; Referring Provider Internal Medicine; Visit Provider Internal Medicine Gastroenterology
DX: E11.65 Type 2 diabetes mellitus with hyperglycemia (principal); I10 Essential (primary) hypertension; E03.9 Hypothyroidism, unspecified; E55.9 Vitamin D deficiency, unspecified; E11.21 Type 2 diabetes mellitus with diabetic nephropathy; E78.00 Pure hypercholesterolemia, unspecified; E66.9 Obesity, unspecified; K70.10 Alcoholic hepatitis without ascites; K72.90 Hepatic failure, unspecified without coma; I85.00 Esophageal varices without bleeding; R79.89 Other specified abnormal findings of blood chemistry; Z72.89 Other problems related to lifestyle
CPT/HCPCS: 36415; 80053; 80061; 81001; 82043; 82306; 83036; 84439; 84443; 85025; 99212

== ENCOUNTER → 2020-11-04 10:25 | Outpatient (BNVA) | payer MEDICARE, MEDICAID, SELFPAY | PROVIDERS: PCP Internal Medicine; Visit Provider Urology | DX: N40.0 Benign prostatic hyperplasia without lower urinary tract symptoms (principal) | CPT/HCPCS: 51798; 81003; 99212 ==

== ENCOUNTER 2020-11-18 10:31 | Outpatient (REF) | payer MEDICARE, MEDICAID, SELFPAY ==
--- NOTE | ~2020-11-18 | XR_ITS ---
EXAMINATION: XR CERVICAL SPINE CLINICAL INFORMATION: Neck pain. COMPARISON: None TECHNIQUE: 3 views of the cervical spine were obtained. FINDINGS: There is mild straightening of cervical lordosis. The vertebral heights and alignment is normal. The craniovertebral junction and the C1-C2 alignment is normal. There is loss of C3-C4, C4-C5, C5-C6 and C6-C7 disc heights with moderate ventral spondylosis. There is no visible acute fracture, dislocation or subluxation seen. The prevertebral soft tissues are normal. XR/XR cervical spine 3V IMPRESSION: Mild degenerative disc changes and spondylosis cervical spine. No visible acute fracture, dislocation or subluxation seen.
== END 2020-11-18 10:32 | disposition home or self-care (01) ==
LOC: HO.XRAY 10:31
PROVIDERS: Visit Provider Internal Medicine
DX: M54.2 Cervicalgia (principal); W10.9XXS Fall (on) (from) unspecified stairs and steps, sequela
CPT/HCPCS: 72040

== ENCOUNTER 2020-11-25 07:49 | Outpatient (REF) | payer MEDICARE, MEDICAID, SELFPAY ==
--- NOTE | ~2020-11-25 | CT_ITS ---
EXAMINATION: CT HEAD WITHOUT CONTRAST CLINICAL INFORMATION: Fall. COMPARISON: Most recent CT brain dated 12/02/2016. TECHNIQUE: Contiguous axial imaging was performed from the skull base to vertex without intravenous administration of contrast. This CT examination was performed using dose optimization techniques as appropriate, variously including the following: *Automated exposure control *Adjustment of mA and/or kV according to patient size (this includes techniques or standardized protocols for targeted exams where dose is matched to indication/reason for exam; i.e. extremities or head) *Use of iterative reconstruction technique DLP: 794 mGy-cm FINDINGS: There is no evidence of acute intracranial hemorrhage or territorial infarction. No abnormal mass effect or midline shift is seen. Rivera to white matter differentiation is well preserved. No extra-axial fluid collections are identified. The ventricles are normal in size. There is no abnormal attenuation within the brain parenchyma. The osseous structures and soft tissues are normal. The mastoid air cells and visualized portions of the paranasal sinuses are well aerated. CT/CT head/brain wo con IMPRESSION: No acute intracranial hemorrhage or mass effect.
== END 2020-11-25 07:50 | disposition home or self-care (01) ==
LOC: HO.CT 07:49
PROVIDERS: Visit Provider Internal Medicine
DX: R51.9 Headache, unspecified (principal); W10.9XXS Fall (on) (from) unspecified stairs and steps, sequela
CPT/HCPCS: 70450

== ENCOUNTER → 2020-11-27 11:32 | Outpatient (BNVA) | payer MEDICARE, MEDICAID, SELFPAY | PROVIDERS: Visit Provider Internal Medicine | DX: F10.20 Alcohol dependence, uncomplicated (principal); K74.60 Unspecified cirrhosis of liver; Z79.899 Other long term (current) drug therapy | CPT/HCPCS: 99212 ==

== ENCOUNTER 2020-12-23 10:12 | Day surgery (SDC) | payer MEDICARE, MEDICAID, SELFPAY ==
[2020-12-21 08:42] VITALS: BMI 28.8
--- NOTE | 2020-12-22 11:55 | P.CONAN_ITS ---
Documented by User: Jodi Saleem NP 12/22/20 11:58 HPI - Anesthesia Eval Consult details Narrative: 50yo M for Upper Endoscopy s/p EGD with MAC 09/2020 ETOH cirrhosis - no ETOH currently per GI PMFSH Active Problems Active Problems: All Active Problems (Updated 11/18/20 @ 10:53 by Dakota Reilly MD) Cirrhosis (Acute) Alcohol use disorder, severe, dependence (Acute) Anemia (Acute) Fall (on) (from) unspecified stairs and steps, sequela (Acute) Neck pain on left side (Acute) Worsening headaches (Acute) Alcohol use disorder (Acute) Overweight (BMI 25.0-29.9) (Acute) Acute kidney failure (Acute) Obstructive uropathy (Acute) Alcoholic hepatitis (Acute) Hepatic encephalopathy (Acute) Portal hypertensive gastropathy (Acute) Varices of esophagus determined by endoscopy (Acute) Scrotal wall abscess (Acute) Bipolar depression (Acute) Elevated LFTs (Acute) Pure hypercholesterolemia (Acute) Abnormal liver function test (Acute) BPH (benign prostatic hyperplasia) (Acute) Bipolar disorder (Acute) Obesity (BMI 30-39.9) (Acute) Postablative hypothyroidism (Acute) Dyslipidemia (Acute) Diabetic nephropathy associated with type 2 diabetes mellitus (Acute) emt intermediate (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 of insulin (Acute) Vitamin D deficiency (Acute) Prostate cancer screening (Acute) 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, urine (Acute) Diabetes (Acute) Hypothyroidism (Acute) Diabetes type 2, uncontrolled (Acute) Past Medical History Medical History Abdominal pain Abnormal liver function test Acute upper gastrointestinal bleeding Alcohol abuse with withdrawal Alcohol use disorder Alcohol use disorder, severe, dependence Alcoholic hepatitis Anemia Bipolar depression Bipolar disorder BPH (benign prostatic hyperplasia) Cirrhosis Coffee ground emesis Diabetes Diabetes mellitus type 2, uncontrolled Diabetes type 2, uncontrolled Diabetic nephropathy associated with type 2 diabetes mellitus Dyslipidemia Elevated LFTs Hepatic encephalopathy Hypothyroidism 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, urine [facility] (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 of insulin Obesity (BMI 30-39.9) Obstructive uropathy Overweight (BMI 25.0-29.9) Portal hypertensive gastropathy Postablative hypothyroidism Pure hypercholesterolemia Scrotal wall abscess Transaminitis Urinary retention Varices of esophagus determined by endoscopy Vitamin D deficiency Family History Family History Father Diabetes Mother Diabetes Maternal Aunt Family history of thyroid problem Other Mental health problem Substance abuse Surgical History Surgical History (Updated 12/22/20 @ 12:51 by Lynn Foley RN) History of arthroscopy of left knee History of laparoscopic cholecystectomy Hx of colonoscopy Hx of esophagogastroduodenoscopy Social History Social History Household Members: None Housing: House Do you presently have visiting nurse or other home services: Yes Alcohol intake: former Patient Tobacco Use Status: Former Tobacco user Tobacco use type: Cigarette Years Smoked: 1 Smoked in Last 30 Days: No Use of substances other than those prescribed or required for medical reasons: No Are you DNR?: No Advance Directives: No Advance Directives Information Provided: Yes service: No Current occupational status: unemployed Meds Allergies Allergy/AdvReac Type Severity Reaction Status Date / Time No Known Allergies Allergy Verified 12/23/20 11:17 [No Known Allergies*] Home Medications Medication Instructions Recorded Confirmed Last Taken Type benztropine 0.5 mg tablet 0.5 mg PO DAILY 02/14/20 11/18/20 Unknown History mirtazapine 45 mg tablet 45 mg PO BEDTIME 02/14/20 11/18/20 Unknown History risperidone 2 mg tablet 2 mg PO BEDTIME 02/14/20 11/18/20 Unknown History lithium carbonate 300 mg tablet See Rx Instructions PO .COMPLEX 04/17/20 11/18/20 Unknown History trazodone 50 mg tablet See Rx Instructions PO BEDTIME PRN 04/17/20 11/18/20 Unknown History tab venlafaxine 37.5 mg 1 cap PO DAILY 09/26/20 11/18/20 Unknown History capsule,extended release 24 hr thiamine HCl (vitamin B1) 100 mg 100 mg PO DAILY 11/18/20 11/18/20 Unknown History tablet Exam Exam Date and Time: December 22, 2020 1155 Height,Weight and Vital Signs: Height 5 ft 6 in Weight 81.193 kg Pertinent Lab Results Pertinent Lab Results: Laboratory Tests 10/30/20 12:50 Sodium 140 Potassium 3.9 Chloride 112 H Carbon Dioxide 20 L BUN 7 L Creatinine 0.92 Laboratory Tests 10/30/20 12:50 WBC 7.6 Hgb 10.2 L Hct 32.1 L Plt Count 121 L D Laboratory Tests 10/07/20 10/30/20 09:40 12:50 PT 15.0 H INR 1.3 H Total Bilirubin 0.6 AST 48 H ALT 31 Alkaline Phosphatase 109 D Total Protein 7.6 Albumin 3.7 Assessment and Plan Assessment Anesthesia Assessment: Chart Reviewed Documented by User: Sierra Irby MD 12/23/20 11:44 PMFSH Past Medical History Medical History Abdominal pain Abnormal liver function test Acute upper gastrointestinal bleeding Alcohol abuse with withdrawal Alcohol use disorder Alcohol use disorder, severe, dependence Alcoholic hepatitis Anemia Bipolar depression Bipolar disorder BPH (benign prostatic hyperplasia) Cirrhosis Coffee ground emesis Diabetes Diabetes mellitus type 2, uncontrolled Diabetes type 2, uncontrolled Diabetic nephropathy associated with type 2 diabetes mellitus Dyslipidemia Elevated LFTs Hepatic encephalopathy Hypothyroidism 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, urine [facility] (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 of insulin Obesity (BMI 30-39.9) Obstructive uropathy Overweight (BMI 25.0-29.9) Portal hypertensive gastropathy Postablative hypothyroidism Pure hypercholesterolemia Scrotal wall abscess Transaminitis Urinary retention Varices of esophagus determined by endoscopy Vitamin D deficiency Family History Family History Father Diabetes Mother Diabetes Maternal Aunt Family history of thyroid problem Other Mental health problem Substance abuse Family history of problems with anesthesia: No Surgical History Surgical History (Updated 12/22/20 @ 12:51 by Lynn Foley RN) History of arthroscopy of left knee History of laparoscopic cholecystectomy Hx of colonoscopy Hx of esophagogastroduodenoscopy History of Problems with Anesthesia: No Social History Social History Household Members: None Housing: House Do you presently have visiting nurse or other home services: Yes Alcohol intake: former Patient Tobacco Use Status: Former Tobacco user Tobacco use type: Cigarette Years Smoked: 1 Smoked in Last 30 Days: No Use of substances other than those prescribed or required for medical reasons: No Are you DNR?: No Advance Directives: No Advance Directives Information Provided: Yes service: No Current occupational status: unemployed Meds Allergies Allergy/AdvReac Type Severity Reaction Status Date / Time No Known Allergies Allergy Verified 12/23/20 11:17 [No Known Allergies*] Home Medications Medication Instructions Recorded Confirmed Last Taken Type benztropine 0.5 mg tablet 0.5 mg PO DAILY 02/14/20 11/18/20 Unknown History mirtazapine 45 mg tablet 45 mg PO BEDTIME 02/14/20 11/18/20 Unknown History risperidone 2 mg tablet 2 mg PO BEDTIME 02/14/20 11/18/20 Unknown History lithium carbonate 300 mg tablet See Rx Instructions PO .COMPLEX 04/17/20 11/18/20 Unknown History trazodone 50 mg tablet See Rx Instructions PO BEDTIME PRN 04/17/20 11/18/20 Unknown History tab venlafaxine 37.5 mg 1 cap PO DAILY 09/26/20 11/18/20 Unknown History capsule,extended release 24 hr thiamine HCl (vitamin B1) 100 mg 100 mg PO DAILY 11/18/20 11/18/20 Unknown History tablet Exam Airway Mallampati Class: III (Missing teeth, nothing loose) TM Dist: >3cm Neck ROM: Full Heart: rrr Lungs: cta Assessment and Plan Assessment Anesthesia Assessment: Anesthesia Plan Discussed and Chart Reviewed Final Anesthetic Review Family History of Problems with Anesthesia: No History of Problems with Anesthesia: No NPO: Yes ASA Class: III Final Preanesthetic Review: No Changes in Pt Med Stat, Meds/Allgs Chart Reviewed and Consent Obtained/Reviewed Patient Risk: Intermediate Procedure Risk: Intermediate Anesthetic Plan Anesthetic Plan: MAC: Disposition: Standard PACU
[2020-12-23 11:28] LABS: Glucose, Whole Blood 95 mg/dL (60-115)
[2020-12-23 11:36] VITALS: BP 127/78; PULSE 84; RESP 16; TEMP 37.1; O2SAT 99; BMI 29.0
--- NOTE | 2020-12-23 11:40 | MHC.SHP ---
Pre-Procedural Eval Section A Date of Service: 12/23/20 Section B Chief Complaint: alcoholic hepatitis without ascites Relevant Family History (Specify if Yes): No Relevant Social History: Alcohol Use (ex alcohol abuser) Present Medications: see Short Stay Collaborative assessment Medical History: Significant History (Abdominal pain Abnormal liver function test Acute upper gastrointestinal bleeding Alcohol abuse with withdrawal Alcohol use disorder Alcohol use disorder, severe, dependence Alcoholic hepatitis Anemia Bipolar depression Bipolar disorder BPH (benign prostatic hyperplasia) Cirrhosis Coffee ground emes) History of Previous Operations: Relevant previous surgery/procedure and date(s) (History of arthroscopy of left knee History of laparoscopic cholecystectomy Hx of colonoscopy) Allergies: Allergies Allergy/AdvReac Type Severity Reaction Status Date / Time No Known Allergies Allergy Verified 12/23/20 11:17 [No Known Allergies*] Review of Systems Sugical H&P ROS: Negative: Constitution, Cardiovascular, Respiratory, Neurological, Psychiatric, Hem-Onc, Allergic/Immunologic, Gastrointestinal, Genitourinary, Musculoskeletal, Integumentary, Endocrine and Eyes/Ears/Nose/Throat Exam Surgical H&P Exam: Normal: HEENT, Normal: Heart, Normal: Lungs, Normal: Extremities, Normal: Abdomen, Normal: Skin and Normal: Neurological Plan Diagnosis/Plan: Unchanged I have reviewed the history and physical and performed a pertinent physical examination on my patient. No changes have occurred unless specified.
--- NOTE | 2020-12-23 11:55 | P.BOP_ITS ---
Brief Operative Note Date of Service: 12/23/20 Pre-op diagnosis: hx of varices, and cirrhosis Post-op diagnosis: same Procedure: see op note Surgeon: Jade Douglas MD Anesthesia: MAC Was an Consulting Psychiatrist used for this Procedure?: No Estimated blood loss (mL): 0 Condition: stable Disposition: PACU
--- NOTE | 2020-12-23 11:56 | W.PM.OPN ---
Operative Note Operative Note Date of Service: 12/23/20 Narrative: Procedure Description: EGD FLEXIBLE TRANSORAL UPPER GASTROINTESTINAL ENDOSCOPY UPPER ENDOSCOPY Consent: Indications for the procedure and potential complications of bleeding, perforation, reaction to medications and missed diagnosis were discussed with the patient and informed consent was obtained. Instrument: Olympus GIF H 190 J mid size upper endoscope Monitoring: Vital signs and clinical assessment, continuous EKG monitoring, Pulse oximetry, Carbon Dioxide monitoring and blood pressure monitoring were done throughout the procedure. Procedure: The patient was placed in the left lateral decubitis position and pre-procedure medications were administered and a bite block was placed. The endoscope was inserted into the mouth and advanced under direct vision to the third part of duodenum. A careful inspection was made as the upper endoscope was withdrawn including a retroflexed examination of the proximal stomach; Findings and interventions are described below. Findings: Larynx:normal Esophagus: GE junction at 38? cm, diaphragm hiatus at 38 cm, 2 variceal columns noted, one at 3 O'clock was grade II and the other was grade I, no high risk stigmata, but extended into the stomach i.e type 1 GOV, 2 bands applied with good effect Stomach: Patchy gastric erythema and mosaic pattern consistent with portal hypertensive?gastritis.Grade 2 flap valve on retroflexed examination of the cardia, gastric varix extending from esophagus noted ie: type 1 GOV. There was food in the stomach with minimal gastric movement consistent with gastroparesis Duodenum: Normal bulb and descending duodenum, Intervention: esophageal banding Impression/Findings: Varices portal hypertensive gastropathy gastroparesis PLAN: low fat and low fiber diet cont with carvedilol, overall appearance of varices improved liquid diet today and advance tomorrow cont with pantoprazole to reduce risk of post banding ulceration repeat EGD in 4-6 weeks
[2020-12-23] MEDS: Lactated Ringers 1,000 ML 100 ML IVCONT (12:00)
[2020-12-23 12:15] VITALS: BP 82/51; PULSE 96; RESP 16; TEMP 36.4; O2SAT 96
[2020-12-23 12:30] VITALS: BP 101/64; PULSE 88; RESP 18; O2SAT 98
[2020-12-23 12:45] VITALS: BP 119/72; PULSE 83; RESP 18; TEMP 36.2; O2SAT 98
[2020-12-23 12:53] LABS: Glucose, Whole Blood 90 mg/dL (60-115)
== END 2020-12-23 13:37 | disposition home or self-care (01) ==
PROVIDERS: PCP Internal Medicine; Visit Provider Internal Medicine Gastroenterology
PROC: 0DJ08ZZ Inspection of Upper Intestinal Tract, Via Natural or Artificial Opening Endoscopic (ICD-10-PCS; CPT 43235; principal; 2020-12-23 12:00)
DX: K70.10 Alcoholic hepatitis without ascites (principal); I85.00 Esophageal varices without bleeding; K70.30 Alcoholic cirrhosis of liver without ascites; K76.6 Portal hypertension; K31.89 Other diseases of stomach and duodenum; K31.84 Gastroparesis; K59.00 Constipation, unspecified; E11.21 Type 2 diabetes mellitus with diabetic nephropathy; Z79.4 Long term (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 of insulin; Z79.899 Other long term (current) drug therapy; F31.9 Bipolar disorder, unspecified; Z90.49 Acquired absence of other specified parts of digestive tract
CPT/HCPCS: 43244; 82947; J3010

== ENCOUNTER → 2020-12-25 11:24 | Outpatient (BNVA) | payer MEDICARE, MEDICAID, SELFPAY | PROVIDERS: Visit Provider Internal Medicine | DX: Z72.89 Other problems related to lifestyle (principal) | CPT/HCPCS: 99212 ==

== ENCOUNTER 2021-01-27 11:00 | Outpatient (RCR) | payer MEDICARE, MEDICAID, SELFPAY ==
--- NOTE | 2021-01-05 11:49 | MHC.PT.EP ---
[facility] [place] Office [place] Office [place] Office [address] [place] [address] [phone] F: [phone] F: [phone] F: [phone] F: [phone] Physical Therapy Plan of Care Date of Evaluation: Date of Surgery: n/a Diagnosis: cervicalgia/back of neck Assessment: Patient is a 50 year old male presenting to PT with complaints of pain in his neck. Pt reports onset of pain began about 3months ago due to falling down the stairs. He presents today with impairments in pain, posture, ROM, shoulder strength, and +ttp to LUT. Pt's current occupation is none due to disability, with baseline physical activities including sleeping and ADLs. Pt expresses mcfp goal of getting better, and is motivated to work towards this in PT. Clinical presentation today is most consistent with signs and sx associated with neck pain that is myofascial in nature and pt will benefit from skilled PT to address the following problems and impairments noted upon evaluation: pain, posture, ROM, shoulder strength, and +ttp to LUT. These problems limit the patient with the following functional activities: sleeping, ADLs. The prescribed treatment plan of care is medically necessary. Co-morbidities of T2DM were identified and taken into considerations of plan of care. Pt was educated on HEP, role of PT, prognosis, POC, posture. Frequency and Duration: The patient will be seen 2 x week x 4 weeks Short Term Goals: Pt will demonstrate ability to complete cervical AROM in all directions with min to no pain in 2 weeks. Pt will demonstrate pain at rest <3/10 in 2 weeks for improved QOL. Pt will demonstrate improved postural awareness as evidence by <2 cues per session for proper posture in 2 weeks. Pt will demonstrate 5/5 shoulder strength in all directions in 2 weeks. [place] Goals: Pt will demonstrate self reports of improved ability to fall asleep in 4 weeks. Pt will demonstrate ability to complete all ADLs with pain <3/10 in 4 weeks for return to PLOF. Pt will demonstrate self reports of exacerbation of pain <3 x per week in 4 weeks to improve QOL. Treatment Plan: Modalities to reduce pain, spasms and effusion. Manual therapy to restore motion and function. Therapeutic exercise to improve strength and flexibility. Neuromuscular re-education for posture and balance. Therapeutic activities to return to functional activities of daily living. Electronically signed by: Eleni Shook, PT, DPT, ATC Please sign and return to therapist. Thank you for your referral.
--- NOTE | 2021-01-27 13:07 | MHC.PT.EP ---
[facility] [place] Office [place] Office [place] Office [address] [place] [address] [phone] F: [phone] F: [phone] F: [phone] F: [phone] Physical Therapy Plan of Care Date of Evaluation: Date of Surgery: n/a Diagnosis: cervicalgia/back of neck Assessment: Patient is a 50 year old male presenting to PT with complaints of pain in his neck. Pt reports onset of pain began about 3months ago due to falling down the stairs. He presents today with impairments in pain, posture, ROM, shoulder strength, and +ttp to LUT. Pt's current occupation is none due to disability, with baseline physical activities including sleeping and ADLs. Pt expresses correction goal of getting better, and is motivated to work towards this in PT. Clinical presentation today is most consistent with signs and sx associated with neck pain that is myofascial in nature and pt will benefit from skilled PT to address the following problems and impairments noted upon evaluation: pain, posture, ROM, shoulder strength, and +ttp to LUT. These problems limit the patient with the following functional activities: sleeping, ADLs. The prescribed treatment plan of care is medically necessary. Co-morbidities of T2DM were identified and taken into considerations of plan of care. Pt was educated on HEP, role of PT, prognosis, POC, posture. Frequency and Duration: The patient will be seen 2 x week x 4 weeks Short Term Goals: Pt will demonstrate ability to complete cervical AROM in all directions with min to no pain in 2 weeks. MET 01/27/2021 Pt will demonstrate pain at rest <3/10 in 2 weeks for improved QOL. IMPROVED 01/27/2021 Pt will demonstrate improved postural awareness as evidence by <2 cues per session for proper posture in 2 weeks. NOT MET 01/27/2021 Pt will demonstrate 5/5 shoulder strength in all directions in 2 weeks. MET 01/27/2021 [place] Goals: Pt will demonstrate self reports of improved ability to fall asleep in 4 weeks. NOT MET 01/27/2021 Pt will demonstrate ability to complete all ADLs with pain <3/10 in 4 weeks for return to PLOF. MET 01/27/2021 Pt will demonstrate self reports of exacerbation of pain <3 x per week in 4 weeks to improve QOL. MET 01/27/2021 Treatment Plan: Modalities to reduce pain, spasms and effusion. Manual therapy to restore motion and function. Therapeutic exercise to improve strength and flexibility. Neuromuscular re-education for posture and balance. Therapeutic activities to return to functional activities of daily living. Electronically signed by: Eleni Shook, PT, DPT, ATC Please sign and return to therapist. Thank you for your referral.
--- NOTE | 2021-01-27 13:31 | MHC.PT.DC ---
[facility] [place] Office [place] Office [place] Office [address] [place] [address] [phone] F: [phone] F: [phone] F: [phone] F: [phone] Physical Therapy Discharge Report Diagnosis: cervicalgia/back of neck Date of Surgery: n/a Date of Evaluation: 01/05/21 Date of Discharge: 01/27/21 Treatments to Date: 6 Cancellations to Date: No Shows to Date: Discharge Status: Achieved Goals Improved Function Independent with HEP Patient Elected to Stop Discharge Summary: Pt has demonstrated some improvements since beginning PT. He is now experiencing less pain and is demonstrating improved cervical ROM and UE strength. He has met the majority of his goals but sleeping continues to be difficult for him due to the pain. Pt states he feels most benefit from massage and heat. Demonstrated self massage with tennis ball for home. Educated pt on importance of continuing exercises at home in order to maintain gains made thus far and he verbalized good understanding. Pt requesting to stop PT today as he feels better. I agree that this is reasonable and therefore pt to be d/c to HEP today. Electronically signed by: Eleni Shook, PT, DPT, ATC Please sign and return to therapist. Thank you for your referral.
== END 2021-01-27 13:08 | disposition home or self-care (01) ==
LOC: HO.PT 11:00
PROVIDERS: PCP Internal Medicine; Visit Provider Internal Medicine
DX: M54.2 Cervicalgia (principal)
CPT/HCPCS: 97012; 97110; 97140; 97161; 97535

== ENCOUNTER 2021-02-04 08:01 | Outpatient (REF) | payer MEDICARE, MEDICAID, SELFPAY ==
[2021-02-04 09:31] LABS: MANUAL DIFF FLAG NO
[2021-02-04 09:46] LABS: Basophils Percent Auto 0.6 % (0-2); Eosinophils Absolute Auto 0.1 X10*3/uL (0.0-0.4); Eosinophils Percent Auto 1.3 % (0-4); Hematocrit 32.1 % (42-52); Imm Gran Abs Auto 0.02 X10*3/uL (0.00-0.03); Imm Gran Pct Auto 0.4 % (0.0-0.4); Mean Corpuscular HGB Conc 31.2 g/dl (31.0-36.0); Mean Corpuscular Hemoglobin 23.9 pg (27.0-33.0); Mean Corpuscular Volume 76.8 fL (80-98); Mean Platelet Volume 10.5 fL (9.4-12.4); Monocytes Absolute Auto 0.5 X10*3/uL (0.1-1.2); Monocytes Percent Auto 9.9 % (2-11); Neutrophils Absolute Auto 3.8 X10*3/uL (2.0-8.3); Neutrophils Percent Auto 69.8 % (45-73); Red Blood Count 4.18 X10*6/uL (4.60-5.80); Red Cell Distribution Width 18.4 % (11.0-16.0); White Blood Count 5.4 X10*3/uL (4.8-10.8)
[2021-02-04 09:54] LABS: Estimated Average Glucose 154 mg/dL
[2021-02-04 10:11] LABS: Platelet Count 82 X10*3/uL (160-400)
[2021-02-04 10:17] LABS: Alanine Aminotransferase 32 U/L (0-40); Albumin Level 3.8 g/dL (3.5-5.0); Alkaline Phosphatase 96 U/L (39-117); Anion Gap 11 (12-20); Aspartate Amino Transferase 33 U/L (5-37); Bilirubin Total 0.4 mg/dL (0.0-1.0); Blood Urea Nitrogen 12 mg/dL (9-16); Carbon Dioxide 21 mmol/L (22-29); Chloride 112 mmol/L (96-108); Cholesterol 97 mg/dL; Estimated Glomerular Filt Rate > 60; Glucose Fasting 305 mg/dL (60-99); HDL Cholesterol 38 mg/dL; LDL Cholesterol Calculated 50 mg/dl; Magnesium 2.1 mg/dL (1.6-2.6); Potassium 4.7 mmol/L (3.3-5.1); Sodium 139 mmol/L (135-145); Total Protein 7.2 g/dL (6.5-8.0); Triglycerides 49 mg/dL
[2021-02-04 10:27] LABS: Appearance Urine CLEAR; Color Urine YELLOW; Glucose Urine UA >=1000 MG/DL (NEG); Leukocyte Esterase Urine NEG (NEG); Nitrite Urine NEG (NEG); PH 6.5 (5.0-8.0); Specific Gravity - Urine <= 1.005 (1.005-1.025); Urine Blood NEG (NEG); Urine Ketones NEG (NEG); Urine Protein NEG (NEG-TRACE)
[2021-02-04 10:34] LABS: Thyroid Stimulating Hormone 0.03 uIU/mL (0.32-4.0); Vitamin D 25-OH Total 40.2 ng/mL (>30)
[2021-02-04 10:51] LABS: RBC Urine 0 /HPF (0); WBC Urine 0 /HPF (0-4)
[2021-02-04 11:38] LABS: Creatinine Urine 17.67 mg/dL; Microalbumin Urine < 5.0 mg/L
== END 2021-02-04 08:02 | disposition home or self-care (01) ==
LOC: HO.LAB 08:01
PROVIDERS: PCP Internal Medicine; Visit Provider Nurse Practitioner Gerontology
DX: E11.65 Type 2 diabetes mellitus with hyperglycemia (principal); E11.21 Type 2 diabetes mellitus with diabetic nephropathy; E89.0 Postprocedural hypothyroidism; E78.5 Hyperlipidemia, unspecified; E66.9 Obesity, unspecified; Z68.29 Body mass index [BMI] 29.0-29.9, adult; I10 Essential (primary) hypertension; E83.42 Hypomagnesemia; E78.00 Pure hypercholesterolemia, unspecified; Z79.899 Other long term (current) drug therapy; Z79.4 Long term (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 of insulin; Z71.3 Dietary counseling and surveillance; Z87.891 Personal history of nicotine dependence
CPT/HCPCS: 36415; 80053; 80061; 81001; 82043; 82306; 82947; 83036; 83735; 84439; 84443; 85025; 99212

== ENCOUNTER 2021-02-17 10:27 | Outpatient (REF) | payer MEDICARE, MEDICAID, SELFPAY ==
[2021-02-17 11:59] LABS: Appearance Urine CLEAR; Color Urine YELLOW; Glucose Urine UA >=1000 MG/DL (NEG); Leukocyte Esterase Urine NEG (NEG); Nitrite Urine NEG (NEG); Specific Gravity - Urine <= 1.005 (1.005-1.025); Urine Blood NEG (NEG); Urine Ketones NEG (NEG); Urine Protein NEG (NEG-TRACE)
[2021-02-17 12:04] LABS: Estimated Average Glucose 143 mg/dL; Hemoglobin A1c % 6.6 %
[2021-02-17 12:13] LABS: Lithium 0.35 mmol/L (0.60-1.20)
[2021-02-17 12:15] LABS: RBC Urine 0 /HPF (0); Squamous Epithelial Cell Urine TRACE /LPF; WBC Urine 0 /HPF (0-4)
[2021-02-17 12:27] LABS: Anion Gap 10 (12-20); Blood Urea Nitrogen 14 mg/dL (9-16); Carbon Dioxide 25 mmol/L (22-29); Chloride 110 mmol/L (96-108); Cholesterol 108 mg/dL; Estimated Glomerular Filt Rate > 60; Glucose Fasting 95 mg/dL (60-99); HDL Cholesterol 42 mg/dL; LDL Cholesterol Calculated 57 mg/dl; Potassium 4.5 mmol/L (3.3-5.1); Sodium 140 mmol/L (135-145); Triglycerides 48 mg/dL
[2021-02-17 12:55] LABS: TSH reflex Free T4 0.16 uIU/mL (0.32-4.0)
[2021-02-17 13:27] LABS: Free T4 (Free Thyroxine) 0.91 ng/dL (0.71-1.85); Prostate Specific Antigen Scr 0.56 ng/mL (<0.05-4.0)
== END 2021-02-17 10:28 | disposition home or self-care (01) ==
LOC: HO.LAB 10:27
PROVIDERS: Nurse Practitioner Acute Care; Nurse Practitioner Family; Referring Provider Nurse Practitioner Gerontology; Visit Provider Internal Medicine
DX: Z12.5 Encounter for screening for malignant neoplasm of prostate (principal); F31.9 Bipolar disorder, unspecified; E03.9 Hypothyroidism, unspecified; E11.9 Type 2 diabetes mellitus without complications; Z79.4 Long term (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 of insulin
CPT/HCPCS: 36415; 80048; 80061; 80178; 81001; 83036; 84153; 84439; 84443

== ENCOUNTER → 2021-02-18 08:57 | Outpatient (BNVA) | payer MEDICARE, MEDICAID, SELFPAY | PROVIDERS: PCP Internal Medicine; Visit Provider Nurse Practitioner Gerontology | DX: E11.65 Type 2 diabetes mellitus with hyperglycemia (principal); E11.21 Type 2 diabetes mellitus with diabetic nephropathy; E78.5 Hyperlipidemia, unspecified; E55.9 Vitamin D deficiency, unspecified; E66.9 Obesity, unspecified; E89.0 Postprocedural hypothyroidism; Z79.4 Long term (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 of insulin | CPT/HCPCS: 82947; 99212 ==

== ENCOUNTER 2021-02-18 09:42 | Outpatient (REF) | payer MEDICARE, MEDICAID, SELFPAY | END 2021-02-18 09:43 | disposition home or self-care (01) | LOC: HO.10HDL 09:42 | PROVIDERS: Visit Provider Nurse Practitioner Acute Care | DX: E11.65 Type 2 diabetes mellitus with hyperglycemia (principal); E11.21 Type 2 diabetes mellitus with diabetic nephropathy; E89.0 Postprocedural hypothyroidism; M62.82 Rhabdomyolysis; T46.6X5A Adverse effect of antihyperlipidemic and antiarteriosclerotic drugs, initial encounter; Z79.4 Long term (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 of insulin | CPT/HCPCS: 36415; 82550; 82947; 99212 ==

== ENCOUNTER 2021-02-19 11:11 | Outpatient (REF) | payer MEDICARE, MEDICAID, SELFPAY | END 2021-02-19 11:12 | disposition home or self-care (01) | LOC: HO.HMGCLDS 11:11 | PROVIDERS: PCP Internal Medicine; Visit Provider Internal Medicine | DX: Z20.822 Contact with and (suspected) exposure to COVID-19 (principal) | CPT/HCPCS: C9803; U0003; U0005 ==

== ENCOUNTER 2021-03-01 11:11 | Outpatient (REF) | payer MEDICARE, MEDICAID, SELFPAY ==
[2021-03-01 12:42] LABS: MANUAL DIFF FLAG NO
[2021-03-01 12:50] LABS: Basophils Percent Auto 0.5 % (0-2); Eosinophils Absolute Auto 0.2 X10*3/uL (0.0-0.4); Eosinophils Percent Auto 2.9 % (0-4); Hematocrit 31.3 % (42.0-52.0); Hemoglobin 9.6 g/dl (14.0-18.0); Imm Gran Abs Auto 0.01 X10*3/uL (0.00-0.03); Imm Gran Pct Auto 0.2 % (0.0-0.4); Lymphocytes Absolute Auto 1.5 X10*3/uL (1.2-4.9); Lymphocytes Percent Auto 25.9 % (20-40); Mean Corpuscular HGB Conc 30.7 g/dl (31.0-36.0); Mean Corpuscular Hemoglobin 23.5 pg (27.0-33.0); Mean Corpuscular Volume 76.7 fL (80.0-98.0); Mean Platelet Volume 10.2 fL (9.4-12.4); Monocytes Absolute Auto 0.6 X10*3/uL (0.1-1.2); Monocytes Percent Auto 10.9 % (2-11); Neutrophils Absolute Auto 3.5 x10*3/uL (2.0-8.3); Neutrophils Percent Auto 59.6 % (45-73); Platelet Count 102 X10*3/uL (160-400); Red Blood Count 4.08 X10*6/uL (4.60-5.80); Red Cell Distribution Width 18.3 % (11.0-16.0); White Blood Count 5.8 X10*3/uL (4.8-10.8)
[2021-03-01 12:59] LABS: INTERNATIONAL NORM RATIO 1.2 (0.9-1.1); Prothrombin Time 13.3 SEC (9.9-13.0)
[2021-03-01 13:40] LABS: Alanine Aminotransferase 37 U/L (0-40); Albumin Level 3.8 g/dL (3.5-5.0); Alkaline Phosphatase 104 U/L (39-117); Anion Gap 11 (12-20); Aspartate Amino Transferase 38 U/L (5-37); Bilirubin Total 0.5 mg/dL (0.0-1.0); Blood Urea Nitrogen 10 mg/dL (9-16); Calcium 9.6 mg/dL (8.4-10.2); Carbon Dioxide 22 mmol/L (22-29); Chloride 109 mmol/L (96-108); Estimated Glomerular Filt Rate > 60; Glucose Random 161 mg/dL (60-115); Iron 40 mcg/dL (45-160); Percent Iron Saturation 9 % (15-50); Potassium 4.3 mmol/L (3.3-5.1); Sodium 138 mmol/L (135-145); Total Iron Binding Capacity 438 mcg/dL (228-428); Total Protein 7.5 g/dL (6.5-8.0); Unsaturated Iron Binding 398 ug/dL
[2021-03-01 14:03] LABS: Ferritin 10 ng/mL (20-250); Vitamin D 25-OH Total 33.5 ng/mL (>30)
[2021-03-01 14:05] LABS: Folate 19.6 ng/mL (> or = 4.0); Vitamin B12 374 pg/mL (200-900)
== END 2021-03-01 11:12 | disposition home or self-care (01) ==
LOC: HO.LAB 11:11
PROVIDERS: PCP Internal Medicine; Referring Provider Internal Medicine; Visit Provider Internal Medicine Gastroenterology
DX: D64.89 Other specified anemias (principal); K75.81 Nonalcoholic steatohepatitis (NASH); K70.30 Alcoholic cirrhosis of liver without ascites; K72.90 Hepatic failure, unspecified without coma; Z23 Encounter for immunization; Z87.891 Personal history of nicotine dependence
CPT/HCPCS: 36415; 80053; 82306; 82607; 82728; 82746; 83540; 85025; 85610; 90471; 90746; 99212

== ENCOUNTER 2021-03-29 15:05 | Outpatient (REF) | payer MEDICARE, MEDICAID, SELFPAY | END 2021-03-29 15:06 | disposition home or self-care (01) | LOC: HO.LNP 15:05 | PROVIDERS: Visit Provider Hospitalist | DX: Z20.822 Contact with and (suspected) exposure to COVID-19 (principal) | CPT/HCPCS: U0003; U0005 ==

== ENCOUNTER → 2021-03-31 09:51 | Outpatient (BNVA) | payer MEDICARE, MEDICAID, SELFPAY | PROVIDERS: PCP Internal Medicine; Referring Provider Internal Medicine; Visit Provider Internal Medicine Gastroenterology | DX: Z23 Encounter for immunization (principal) | CPT/HCPCS: 90471; 90746 ==

== ENCOUNTER 2021-04-12 10:41 | Outpatient (REF) | payer MEDICARE, MEDICAID, SELFPAY | END 2021-04-12 10:42 | disposition home or self-care (01) | LOC: HO.WFDLDS 10:41 | PROVIDERS: Visit Provider Internal Medicine | DX: Z20.822 Contact with and (suspected) exposure to COVID-19 (principal) | CPT/HCPCS: C9803; U0003; U0005 ==

== ENCOUNTER 2021-04-15 09:00 | Outpatient (REF) | payer MEDICARE, MEDICAID, SELFPAY ==
--- NOTE | ~2021-04-15 | US_ITS ---
EXAMINATION: US ABDOMEN LIMITED WITH LIVER ELASTOGRAPHY CLINICAL INFORMATION: Elevated LFTs. COMPARISON: CT scan of the abdomen and pelvis dated 09/25/2020 and abdominal ultrasound dated 11/14/2019. TECHNIQUE: Real-time imaging of the abdominal viscera. Noninvasive ultrasound liver fibrosis assessment is performed using Dante ElastPQ point quantification shear wave elastography (2D-SWE) with a C5-2 MHz transducer. Multiple elastography samples are obtained. FINDINGS: LIVER: Cirrhotic features including mild diffuse heterogeneity and surface nodularity, but no focal abnormality. The right lobe measures 15.0 cm in length. The left lobe measures 12.6 cm in length. Portal flow is hepatopedal Shear wave liver elastography median stiffness is 2.14 m/s (reference: normal median stiffness is 1.3 m/s or less). IQR/median stiffness to assess sampling precision is 0.12 (reference: good quality data set is IQR/median stiffness of 0.15 or less). GALLBLADDER: Surgically absent. COMMON BILE DUCT: Normal in caliber measuring 0.6 cm in diameter. PANCREAS: Normal. The visualized pancreatic head and body are normal in appearance. The remainder of the pancreas is obscured from visualization by the overlying bowel gas. RIGHT KIDNEY: 12.3 cm. Unremarkable. FREE FLUID: None. US/US abdomen peraza w elastography IMPRESSION: 1. Hepatic cirrhosis without focal abnormality. 2. Liver elastography: Compensated advanced chronic liver disease ruled in. REFERENCE: Society of Radiologists in Ultrasound Liver Stiffness Thresholds (2019): LIVER STIFFNESS THRESHOLDS: *Liver Stiffness equal or less than 1.3 m/s: High probability of being normal. *Liver Stiffness less than 1.7 m/s: In the absence of other known clinical signs, rules out compensated advanced chronic liver disease. *Liver Stiffness 1.7-2.1 m/s: Suggestive of compensated advanced chronic liver disease but need further test for confirmation. *Liver Stiffness over 2.1 m/s: Rules in compensated advanced chronic liver disease. *Liver Stiffness over 2.4 m/s: Suggestive of clinically significant portal hypertension. QUALITY OF DATA SET: *IQR/Median value equal or less than 0.15 implies a quality data set. *IQR/Median value over 0.15 implies a poor quality data set. SIGNIFICANT CHANGE FROM PRIOR EXAM: Significant change if liver stiffness measurement is 10% or greater from prior exam. OTHER CONSIDERATIONS: The stage of liver fibrosis may be overestimated in the setting of acute hepatitis, liver inflammation, elevated liver function tests, hepatic vascular congestion, obstructive cholestasis, non-fasting state, and infiltrative diseases such as amyloidosis and lymphoma. In some patients with NAFLD, the liver stiffness thresholds for compensated advanced chronic liver disease may be lower. In causes other than viral hepatitis and NAFLD, liver stiffness thresholds are not well established.
== END 2021-04-15 09:01 | disposition home or self-care (01) ==
LOC: HO.US 09:00
PROVIDERS: Visit Provider Internal Medicine Gastroenterology
DX: K70.30 Alcoholic cirrhosis of liver without ascites (principal)
CPT/HCPCS: 76705; 76981

== ENCOUNTER → 2021-06-10 08:30 | Outpatient (BNVA) | payer MEDICARE, MEDICAID, SELFPAY | PROVIDERS: PCP Internal Medicine; Visit Provider Nurse Practitioner Gerontology | DX: Z13.89 Encounter for screening for other disorder (principal) | CPT/HCPCS: 82947; 83036; 99212 ==

== ENCOUNTER 2021-06-10 09:30 | Outpatient (REF) | payer MEDICARE, MEDICAID, SELFPAY ==
[2021-06-10 11:19] LABS: Free T4 (Free Thyroxine) 0.83 ng/dL (0.71-1.85); Thyroid Stimulating Hormone 0.73 uIU/mL (0.32-4.0)
== END 2021-06-10 09:31 | disposition home or self-care (01) ==
LOC: HO.10HDL 09:30
PROVIDERS: Visit Provider Nurse Practitioner Gerontology
DX: E11.65 Type 2 diabetes mellitus with hyperglycemia (principal); E11.21 Type 2 diabetes mellitus with diabetic nephropathy; E89.0 Postprocedural hypothyroidism; E78.5 Hyperlipidemia, unspecified; E55.9 Vitamin D deficiency, unspecified; E66.9 Obesity, unspecified; Z68.29 Body mass index [BMI] 29.0-29.9, adult; Z79.4 Long term (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 of insulin
CPT/HCPCS: 36415; 82947; 83036; 84439; 84443; 99212

== ENCOUNTER 2021-06-11 10:46 | Emergency (ER) | payer MEDICARE, MEDICAID, SELFPAY ==
--- NOTE | ~2021-06-11 | CT_ITS ---
EXAMINATION: CT HEAD WITHOUT CONTRAST CLINICAL INFORMATION: Headaches COMPARISON: November 25, 2020 and December 02, 2016 TECHNIQUE: Contiguous axial imaging was performed from the skull base to vertex without intravenous administration of contrast. This CT examination was performed using dose optimization techniques as appropriate, variously including the following: *Automated exposure control *Adjustment of mA and/or kV according to patient size (this includes techniques or standardized protocols for targeted exams where dose is matched to indication/reason for exam; i.e. extremities or head) *Use of iterative reconstruction technique DLP: 682 mGy-cm FINDINGS: There is no evidence of acute intracranial hemorrhage or territorial infarction. No abnormal mass effect or midline shift is seen. Rivera to white matter differentiation is well preserved. No extra-axial fluid collections are identified. The ventricles are normal in size. There is a stable small lacunar infarct seen along the anterior limb of the right internal capsule. The osseous structures and soft tissues are normal. The mastoid air cells and visualized portions of the paranasal sinuses are well aerated. CT/CT head/brain wo con IMPRESSION: No acute intracranial pathology.
[2021-06-11 10:54] VITALS: BP 153/82; PULSE 108; RESP 16; TEMP 36.9; O2SAT 98; BMI 29.0
--- NOTE | 2021-06-11 11:42 | ED.GENADULT ---
HPI - General Adult General Chief complaint: Fall Stated complaint: Fall/head inj Time Seen by Provider: 06/11/21 11:38 History of Present Illness HPI narrative: Patient complains of headaches and body aches for several months, he does have intermittent episodes of dizziness which she describes as lightheaded he denies confusion or loss of balance Patient does drink alcohol, he does attribute his pain to a fall many months ago where he banged his head, at that time a CT scan was done which did not show any acute bleed or pathology He denies any nausea vomiting or vision changes no fainting, no chest pain no palpitations no shortness of breath no abdominal pain no nausea or vomiting Related Data Home Medications Medication Instructions Recorded Confirmed benztropine 0.5 mg tablet 0.5 mg PO DAILY 02/14/20 04/05/21 mirtazapine 45 mg tablet 45 mg PO BEDTIME 02/14/20 04/05/21 risperidone 2 mg tablet 2 mg PO BEDTIME 02/14/20 04/05/21 lithium carbonate 300 mg tablet See Rx Instructions PO .COMPLEX 04/17/20 04/05/21 trazodone 50 mg tablet See Rx Instructions PO BEDTIME PRN 04/17/20 04/05/21 tab hydroxyzine HCl 10 mg tablet 10 mg PO BEDTIME 02/04/21 04/05/21 quetiapine 50 mg tablet 50 mg PO BEDTIME 02/04/21 04/05/21 venlafaxine 75 mg capsule,extended 75 mg PO DAILY 02/04/21 04/05/21 release 24 hr tamsulosin 0.4 mg capsule 0.8 mg PO DAILY 05/25/21 Previous Rx's Medication Instructions Recorded FreeStyle Lancets 28 gauge #300 ea NS 10/13/20 (lancets) FreeStyle Lite Strips (blood sugar #300 ea NS 10/13/20 diagnostic) pen needle, diabetic 32 gauge x #400 ea 10/26/20 (BD Alexa 2nd Gen Pen Needle) polyethylene glycol 3350 17 17 g PO DAILY 30 Days #510 g 11/02/20 gram/dose oral powder carvedilol 3.125 mg tablet 3.125 mg PO BID #60 tab 11/26/20 dulaglutide 3 mg/0.5 mL 3 mg (0.5 mL) SUBCUT QWEEK 30 Days 10/01/21 subcutaneous pen injector #2.5 ml (Trulicity) cholecalciferol (vitamin D3) 25 25 mcg PO DAILY #90 cap 02/04/21 mcg (1,000 unit) capsule levothyroxine 125 mcg tablet 125 mcg PO DAILY #30 tab 02/18/21 folic acid 1 mg tablet 1 mg PO DAILY #30 tab 03/01/21 rifaximin 550 mg tablet (Xifaxan) 550 mg PO BID #60 tab 03/01/21 thiamine HCl (vitamin B1) 100 mg 100 mg PO DAILY #60 tab 03/01/21 tablet nut.tx.gluc.intol,lac-free,soy 1 ea PO BID 30 Days #60 ml 03/09/21 (Glucerna Shake) bisacodyl 5 mg tablet,delayed 10 mg PO ONCE 1 Days #2 tab 05/25/21 release (Dulcolax (bisacodyl)) polyethylene glycol 3350 17 238 g PO ONCE 1 Days #238 g 05/25/21 gram/dose oral powder (Miralax) pantoprazole 40 mg tablet,delayed 40 mg PO BID #60 tab 05/26/21 release finasteride 5 mg tablet 5 mg PO DAILY #30 tab 06/03/21 insulin glargine U-300 conc 300 60 unit (0.2 mL) SUBCUT DAILY 30 06/10/21 unit/mL (1.5 mL) subcutaneous pen Days #6 ml (Toujeo SoloStar U-300 Insulin) insulin lispro-aabc 100 unit/mL See Rx Instructions SUBCUT QID 30 06/10/21 subcutaneous pen (Lyumjev KwikPen Days #30 ml U-100 Insulin) empagliflozin 10 mg tablet 10 mg PO QAM #30 tab 06/11/21 (Jardiance) Allergies Allergy/AdvReac Type Severity Reaction Status Date / Time No Known Allergies Allergy Verified 06/11/21 10:54 [No Known Allergies*] Review of Systems Review of Systems: Positive for headaches and occasional dizziness Negatives are no fever no chills no weakness no fainting no feeling faint no vision changes no confusion no seizures no neck pain no stiff neck no chest pain no shortness breath no abdominal pain no nausea vomiting or diarrhea no numbness no loss of motor strength no tingling no vision changes Yes all other systems are reviewed and are negative PMFSH Past Medical History Source: nursing notes reviewed Medical History Abdominal pain Abnormal liver function test Acute upper gastrointestinal bleeding Alcohol abuse with withdrawal Alcohol use disorder Alcohol use disorder, severe, dependence Alcoholic hepatitis Anemia Bipolar depression Bipolar disorder BPH (benign prostatic hyperplasia) Cirrhosis Coffee ground emesis Diabetes Diabetes mellitus type 2, uncontrolled Diabetes type 2, uncontrolled Diabetic nephropathy associated with type 2 diabetes mellitus Dyslipidemia Elevated LFTs Hepatic encephalopathy Hypothyroidism 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, urine 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 Obesity (BMI 30-39.9) Obstructive uropathy Overweight (BMI 25.0-29.9) Portal hypertensive gastropathy Postablative hypothyroidism Pure hypercholesterolemia Scrotal wall abscess Transaminitis Urinary retention Varices of esophagus determined by endoscopy Vitamin D deficiency Surgical History History of arthroscopy of left knee History of laparoscopic cholecystectomy Hx of colonoscopy Hx of esophagogastroduodenoscopy Family History Family History Father Diabetes Mother Diabetes Maternal Aunt Family history of thyroid problem Other Mental health problem Substance abuse Social History Social History Household Members: None Housing: House Do you presently have visiting nurse or other home services: Yes Alcohol intake: former Patient Tobacco Use Status: Former Tobacco user Tobacco use type: Cigarette Years Smoked: 1 e-Cigarette/Vaping Use: Never Used Second Hand Smoke Exposure: Yes Advance Directives: No Advance Directives Information Provided: No service: No Current occupational status: unemployed Cognitive needs: No Hearing needs: No Vision needs: No Physical Exam ED Vital Signs: Vital Signs - 24 hr 06/11/21 10:54 Temperature 98.5 F Pulse Rate 108 H Respiratory Rate 16 Blood Pressure 153/82 H Pulse Oximetry 98 BMI result Body Mass Index 29.0 General appearance comfortable no acute distress Head is normocephalic atraumatic The ears no hemotympanum The patient had no raccoon eyes no Warren sign, there was no swelling or deformities on the scalp Neck is supple and nontender The chest is clear to auscultation bilateral Heart no murmur Abdomen soft nontender Extremities full range of motion x4 Gait and balance are normal, interaction both expression and comprehension are normal, cranial nerves 2-12 intact as tested, cerebellar exam is normal, motor is 5/5 x4 and sensation is intact and symmetrical and he had no tremors Course Course Course Narrative: Patient with chronic headaches which he attributes to a fall some months ago had a normal head CT normal neurologic exam and was well-appearing today and was discharged He already has scheduled follow-up with a neurologist Medical Decision Making Lab Data Labs: Lab Results 06/11/21 Range/Units 11:42 COVID-19 (ARTEMIO) Negative (Negative) COVID-19 Clin Com See Note Discharge Plan Discharge Clinical Impression: Headache, Concussion Patient Disposition: Home, Self-Care Additional Instructions: Your COVID test was negative CT scan of her head did not show any dangerous condition there was no tumor no bleed no skull fracture no sign of any acute injury Follow as scheduled with your neurologist It is possible these are postconcussion syndromes from when you hit your head several months ago but best plan is talked to the neurologist and get his opinion Return any time any concerns Prescriptions: No Action (DME) lancets [FreeStyle Lancets] 28 gauge misc See Rx Instructions .MEDSUPPLY Qty: 300 2RF Rx Instructions: 3 times a day (DME) FreeStyle Lite Strips Strip See Rx Instructions .ROUTE .MEDSUPPLY Qty: 300 2RF Rx Instructions: 3 times a day (DME) pen needle, diabetic [BD Alexa 2nd Gen Pen Needle] 32 gauge x 5/32 needle See Rx Instructions .MEDSUPPLY Qty: 400 4RF Rx Instructions: 5 times a day polyethylene glycol 3350 17 gram/dose powder 17 g PO DAILY 30 Days Qty: 510 3RF carvedilol 3.125 mg tablet 3.125 mg PO BID Qty: 60 0RF Trulicity 3 mg/0.5 mL pen injector 3 mg subcut QWEEK 30 Days Qty: 2.5 6RF Rx Instructions: Dose increased. Glucerna Shake Liquid 1 ea PO BID 30 Days Qty: 60 11RF bisacodyl [Dulcolax (bisacodyl)] 5 mg tablet,delayed release (DR/EC) 10 mg PO ONCE 1 Days Qty: 2 0RF Rx Instructions: take orally as directed prior to colonoscopy polyethylene glycol 3350 [Miralax] 17 gram/dose powder 238 g PO ONCE 1 Days Qty: 238 0RF Rx Instructions: take orally as directed prior to colonoscopy pantoprazole 40 mg tablet,delayed release (DR/EC) 40 mg PO BID Qty: 60 4RF finasteride 5 mg tablet 5 mg PO DAILY Qty: 30 0RF Jardiance 10 mg tablet 10 mg PO QAM Qty: 30 4RF Rx Instructions: Note decreased dose mirtazapine 45 mg tablet 45 mg PO BEDTIME 0RF benztropine 0.5 mg tablet 0.5 mg PO DAILY 0RF risperidone 2 mg tablet 2 mg PO BEDTIME 0RF lithium carbonate 300 mg tablet See Rx Instructions PO .COMPLEX 0RF Rx Instructions: 1 tablet in AM and 2 tablets at bedtime PO; trazodone 50 mg tablet See Rx Instructions PO BEDTIME PRN (Reason: insomnia) 0RF Rx Instructions: 1 to 2 tablets PO bedtime PRN; tamsulosin 0.4 mg capsule 0.8 mg PO DAILY 0RF folic acid 1 mg tablet 1 mg PO DAILY Qty: 30 3RF thiamine HCl (vitamin B1) 100 mg tablet 100 mg PO DAILY Qty: 60 2RF Xifaxan 550 mg tablet 550 mg PO BID Qty: 60 3RF hydroxyzine HCl 10 mg tablet 10 mg PO BEDTIME 0RF quetiapine 50 mg tablet 50 mg PO BEDTIME 0RF venlafaxine 75 mg capsule,extended release 24hr 75 mg PO DAILY 0RF cholecalciferol (vitamin D3) 25 mcg (1,000 unit) capsule 25 mcg PO DAILY Qty: 90 3RF levothyroxine 125 mcg tablet 125 mcg PO DAILY Qty: 30 11RF Nikolas Perales U-100 Insulin 100 unit/mL insulin pen See Rx Instructions subcut QID 30 Days Qty: 30 5RF Rx Instructions: 20 units breakfast, 8 units lunch and 8-12 dinner and 3 units for hs snack subcut 4 times a day; Toeleanor GayleoStar U-300 Insulin 300 unit/mL (1.5 mL) insulin pen 60 unit subcut DAILY 30 Days Qty: 6 5RF Interventions: ED Discharge Assessment Last Done: 06/11/21 14:14 Discharge Date/Time: 06/11/21 14:16
[2021-06-11 12:05] LABS: COVID-19 Test Negative (Negative)
[2021-06-11 12:49] VITALS: BP 136/80; PULSE 97; RESP 16; TEMP 37.1
== END 2021-06-11 14:16 | disposition home or self-care (01) ==
PROVIDERS: Physician Assistant Medical; Emergency Provider Emergency Medicine; PCP Internal Medicine
DX: S06.0X0A Concussion without loss of consciousness, initial encounter (principal); S06.0X9A Concussion with loss of consciousness of unspecified duration, initial encounter; W01.0XXA Fall on same level from slipping, tripping and stumbling without subsequent striking against object, initial encounter; Y93.9 Activity, unspecified; Y92.9 Unspecified place or not applicable; Y99.9 Unspecified external cause status; Z20.822 Contact with and (suspected) exposure to COVID-19; Z79.899 Other long term (current) drug therapy
CPT/HCPCS: 70450; 87635; 99284

== ENCOUNTER 2021-07-01 09:51 | Day surgery (SDC) | payer MEDICARE, MEDICAID, SELFPAY ==
--- NOTE | 2021-06-30 10:12 | HO.ANESPROP2 ---
Documented by User: Jodi Saleem NP 06/30/21 10:28 HPI - Anesthesia Eval Consult details Narrative: 50yo M for Upper Endoscopy and Colonoscopy s/p EGD 12/2020 with MAC ETOH cirrhosis - no ETOH currently per GI *Pt seen by PCP and neuro for dizziness - normal head imaging, thought to be cognitive and behavioral PMFSH Active Problems Active Problems: All Active Problems (Updated 06/28/21 @ 09:16 by Alison Thacker RN) Diabetes (Acute) Prostate cancer screening (Acute) Bipolar disorder (Acute) Alcohol use disorder, severe, dependence (Acute) Acute kidney failure (Acute) Worsening headaches (Acute) Neck pain on left side (Acute) Fall (on) (from) unspecified stairs and steps, sequela (Acute) Rhabdomyolysis due to statin therapy (Acute) Encounter for initial annual wellness visit (AWV) in Medicare patient (Acute) Exposure to COVID-19 virus (Acute) Fall (on) (from) other stairs and steps, initial encounter (Acute) Generalized body aches (Acute) Memory deficit (Acute) Headache (Acute) Neck pain (Acute) Auditory hallucinations (Acute) Cirrhosis (Acute) Anemia (Acute) Alcohol use disorder (Acute) Overweight (BMI 25.0-29.9) (Acute) Obstructive uropathy (Acute) Alcoholic hepatitis (Acute) Hepatic encephalopathy (Acute) Portal hypertensive gastropathy (Acute) Varices of esophagus determined by endoscopy (Acute) Scrotal wall abscess (Acute) Bipolar depression (Acute) Elevated LFTs (Acute) Pure hypercholesterolemia (Acute) Abnormal liver function test (Acute) BPH (benign prostatic hyperplasia) (Acute) Obesity (BMI 30-39.9) (Acute) Postablative hypothyroidism (Acute) Dyslipidemia (Acute) Diabetic nephropathy associated with type 2 diabetes mellitus (Acute) 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 of 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 (Acute) Vitamin D deficiency (Acute) 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, urine (Acute) Hypothyroidism (Acute) Diabetes type 2, uncontrolled (Acute) Past Medical History Medical History Abdominal pain Abnormal liver function test Acute upper gastrointestinal bleeding Alcohol abuse with withdrawal Alcohol use disorder Alcoholic hepatitis Anemia Bipolar depression BPH (benign prostatic hyperplasia) Cirrhosis Coffee ground emesis Diabetes type 2, uncontrolled Diabetic nephropathy associated with type 2 diabetes mellitus Dyslipidemia Elevated LFTs Hepatic encephalopathy Hypothyroidism 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, urine 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 Obesity (BMI 30-39.9) Obstructive uropathy Overweight (BMI 25.0-29.9) Portal hypertensive gastropathy Postablative hypothyroidism Pure hypercholesterolemia Scrotal wall abscess Transaminitis Urinary retention Varices of esophagus determined by endoscopy Vitamin D deficiency Family History Family History Father Diabetes Mother Diabetes Maternal Aunt Family history of thyroid problem Other Mental health problem Substance abuse Family history of problems with anesthesia: No Surgical History Surgical History History of arthroscopy of left knee History of laparoscopic cholecystectomy Hx of colonoscopy Hx of esophagogastroduodenoscopy History of Problems with Anesthesia: No Social History Social History Household Members: None Housing: House Do you presently have visiting nurse or other home services: Yes Alcohol intake: former Patient Tobacco Use Status: Former Tobacco user Tobacco use type: Cigarette Years Smoked: 1 e-Cigarette/Vaping Use: Never Used Second Hand Smoke Exposure: Yes Use of substances other than those prescribed or required for medical reasons: No Advance Directives: No Advance Directives Information Provided: Yes Recently lost weight without trying: No service: No Current occupational status: unemployed Cognitive needs: No Hearing needs: No Vision needs: No Meds Allergies Allergy/AdvReac Type Severity Reaction Status Date / Time No Known Allergies Allergy Verified 06/11/21 10:54 [No Known Allergies*] Home Medications Medication Instructions Recorded Confirmed Last Taken Type benztropine 0.5 mg tablet 0.5 mg PO DAILY 02/14/20 06/28/21 12/23/20 06:00 History mirtazapine 45 mg tablet 45 mg PO BEDTIME 02/14/20 06/28/21 Unknown History risperidone 2 mg tablet 2 mg PO BEDTIME 02/14/20 06/28/21 Unknown History lithium carbonate 300 mg tablet See Rx Instructions PO .COMPLEX 04/17/20 06/28/21 12/23/20 06:00 History trazodone 50 mg tablet See Rx Instructions PO BEDTIME PRN 04/17/20 04/05/21 Unknown History tab hydroxyzine HCl 10 mg tablet 10 mg PO BEDTIME 02/04/21 06/28/21 Unknown History quetiapine 50 mg tablet 50 mg PO BEDTIME 02/04/21 06/28/21 Unknown History venlafaxine 75 mg capsule,extended 75 mg PO DAILY 02/04/21 06/28/21 Unknown History release 24 hr tamsulosin 0.4 mg capsule 0.8 mg PO DAILY 05/25/21 06/28/21 Unknown History Exam Exam Date and Time: June 30, 2021 1012 Pertinent Lab Results Pertinent Lab Results: Laboratory Tests 03/01/21 03/01/21 12:40 12:40 WBC 5.8 Hgb 9.6 L Hct 31.3 L Plt Count 102 L Sodium 138 Potassium 4.3 Chloride 109 H Carbon Dioxide 22 BUN 10 Creatinine 0.97 Narrative Narrative: EKG 09/2020 Vent. Rate : 077 BPM ? ? Atrial Rate : 077 BPM ?? P-R Int : 164 ms? QRS Dur : 076 ms ? ? QT Int : 422 ms ? ? ? P-R-T Axes : 064 039 039 degrees ?? QTc Int : 477 ms ? Normal sinus rhythm Normal ECG When compared to the previous EKG of No significant changes seen US abdomen peraza w elastography 04/2021 IMPRESSION: 1. Hepatic cirrhosis without focal abnormality. ? 2. Liver elastography:? Compensated advanced chronic liver disease ruled in. ? Assessment and Plan Assessment Anesthesia Assessment: Chart Reviewed Final Anesthetic Review Family History of Problems with Anesthesia: No History of Problems with Anesthesia: No Documented by User: Batsheva Beck MD 07/01/21 11:10 [facility] Past Medical History Medical History Abdominal pain Abnormal liver function test Acute upper gastrointestinal bleeding Alcohol abuse with withdrawal Alcohol use disorder Alcoholic hepatitis Anemia Bipolar depression BPH (benign prostatic hyperplasia) Cirrhosis Coffee ground emesis Diabetes type 2, uncontrolled Diabetic nephropathy associated with type 2 diabetes mellitus Dyslipidemia Elevated LFTs Hepatic encephalopathy Hypothyroidism 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, urine 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 of 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 Obesity (BMI 30-39.9) Obstructive uropathy Overweight (BMI 25.0-29.9) Portal hypertensive gastropathy Postablative hypothyroidism Pure hypercholesterolemia Scrotal wall abscess Transaminitis Urinary retention Varices of esophagus determined by endoscopy Vitamin D deficiency Functional capacity: independent ambulation Family History Family History Father Diabetes Mother Diabetes Maternal Aunt Family history of thyroid problem Other Mental health problem Substance abuse Surgical History Surgical History History of arthroscopy of left knee History of laparoscopic cholecystectomy Hx of colonoscopy Hx of esophagogastroduodenoscopy Social History Social History Household Members: None Housing: House Do you presently have visiting nurse or other home services: Yes Alcohol intake: former Patient Tobacco Use Status: Former Tobacco user Tobacco use type: Cigarette Years Smoked: 1 e-Cigarette/Vaping Use: Never Used Second Hand Smoke Exposure: Yes Use of substances other than those prescribed or required for medical reasons: No Advance Directives: No Advance Directives Information Provided: Yes Recently lost weight without trying: No service: No Current occupational status: unemployed Cognitive needs: No Hearing needs: No Vision needs: No Meds Allergies Allergy/AdvReac Type Severity Reaction Status Date / Time No Known Allergies Allergy Verified 06/11/21 10:54 [No Known Allergies*] Home Medications Medication Instructions Recorded Confirmed Last Taken Type benztropine 0.5 mg tablet 0.5 mg PO DAILY 02/14/20 06/28/21 12/23/20 06:00 History mirtazapine 45 mg tablet 45 mg PO BEDTIME 02/14/20 06/28/21 Unknown History risperidone 2 mg tablet 2 mg PO BEDTIME 02/14/20 06/28/21 Unknown History lithium carbonate 300 mg tablet See Rx Instructions PO .COMPLEX 04/17/20 06/28/21 12/23/20 06:00 History trazodone 50 mg tablet See Rx Instructions PO BEDTIME PRN 04/17/20 04/05/21 Unknown History tab hydroxyzine HCl 10 mg tablet 10 mg PO BEDTIME 02/04/21 06/28/21 Unknown History quetiapine 50 mg tablet 50 mg PO BEDTIME 02/04/21 06/28/21 Unknown History venlafaxine 75 mg capsule,extended 75 mg PO DAILY 02/04/21 06/28/21 Unknown History release 24 hr tamsulosin 0.4 mg capsule 0.8 mg PO DAILY 05/25/21 06/28/21 Unknown History Exam Airway Mallampati Class: III TM Dist: >3cm Neck ROM: Full Heart: RRR Lungs: CTA Assessment and Plan Final Anesthetic Review ASA Class: III Final Preanesthetic Review: No Changes in Pt Med Stat, Meds/Allgs Chart Reviewed, Consent Obtained/Reviewed and Anes Risks/Benef Reviewed Patient Risk: Intermediate Procedure Risk: Low Anesthetic Plan Anesthetic Plan: MAC: Disposition: Standard PACU
[2021-07-01 10:10] VITALS: BP 131/81; PULSE 90; RESP 17; TEMP 36.5; O2SAT 96; BMI 29.0
[2021-07-01] MEDS: Lactated Ringers 1,000 ML 100 ML IVCONT (10:10)
[2021-07-01 10:12] LABS: Glucose, Whole Blood 139 mg/dL (60-115)
--- NOTE | 2021-07-01 10:38 | MHC.SHP ---
Pre-Procedural Eval Section A Date of Service: 07/01/21 Section B Chief Complaint: anemia,alcoholic cirrhosis of liver Relevant Family History (Specify if Yes): No Relevant Social History: None (ex smoker, ex alcoho, abuse) Present Medications: see Short Stay Collaborative assessment Medical History: Significant History (Abdominal pain Abnormal liver function test Acute upper gastrointestinal bleeding Alcohol abuse with withdrawal Alcohol use disorder Alcoholic hepatitis Anemia Bipolar depression BPH (benign prostatic hyperplasia) Cirrhosis Coffee ground emesis Diabetes type 2, uncontrolled Diabetic nephropathy asso) History of Previous Operations: Relevant previous surgery/procedure and date(s) (History of arthroscopy of left knee History of laparoscopic cholecystectomy Hx of colonoscopy Hx of esophagogastroduodenoscopy) Allergies: Allergies Allergy/AdvReac Type Severity Reaction Status Date / Time No Known Allergies Allergy Verified 06/11/21 10:54 [No Known Allergies*] Review of Systems Sugical H&P ROS: Negative: Constitution, Cardiovascular, Respiratory, Neurological, Psychiatric, Hem-Onc, Allergic/Immunologic, Gastrointestinal, Genitourinary, Musculoskeletal, Integumentary, Endocrine and Eyes/Ears/Nose/Throat Exam Surgical H&P Exam: Normal: HEENT, Normal: Heart, Normal: Lungs, Normal: Extremities, Normal: Abdomen, Normal: Skin and Normal: Neurological Plan Diagnosis/Plan: Unchanged I have reviewed the history and physical and performed a pertinent physical examination on my patient. No changes have occurred unless specified.
--- NOTE | 2021-07-01 11:04 | PM.OP ---
Brief Operative Note Date of Service: 07/01/21 Pre-op diagnosis: hx of varices, colon screening Post-op diagnosis: same Procedure: see op note Surgeon: Jade Douglas MD Anesthesia: MAC Was an Mathematical Engineering Technician used for this Procedure?: No Estimated blood loss (mL): 0 Condition: stable Disposition: PACU
--- NOTE | 2021-07-01 11:04 | W.PM.OPN ---
Operative Note Operative Note Date of Service: 07/01/21 Narrative: Operative Information Procedure Description: EGD, Colonoscopy FLEXIBLE TRANSORAL UPPER GASTROINTESTINAL ENDOSCOPY AND COLONOSCOPY PROCEDURE NOTE UPPER ENDOSCOPY Consent: Indications for the procedure and potential complications of bleeding, perforation, reaction to medications and missed diagnosis were discussed with the patient and informed consent was obtained. Instrument: Olympus GIF H 190 J mid size upper endoscope Monitoring: Vital signs and clinical assessment, continuous EKG monitoring, Pulse oximetry, Carbon Dioxide monitoring and blood pressure monitoring were done throughout the procedure. Procedure: The patient was placed in the left lateral decubitis position and pre-procedure medications were administered and a bite block was placed. The endoscope was inserted into the mouth and advanced under direct vision to the third part of duodenum. A careful inspection was made as the upper endoscope was withdrawn including a retroflexed examination of the proximal stomach; Findings and interventions are described below. Findings: Larynx:normal Esophagus: GE junction at 38? cm, diaphragm hiatus at 38 cm, 2 variceal columns noted, one at 3 O'clock was grade II and the other was grade I, no high risk stigmata, but extended into the stomach i.e type 1 GOV, 2 bands applied with good effect Stomach: Patchy gastric erythema and mosaic pattern consistent with portal hypertensive?gastritis.Grade 2 flap valve on retroflexed examination of the cardia, gastric varix extending from esophagus noted ie: type 1 GOV. Duodenum: Normal bulb and descending duodenum, Intervention: esophageal banding COLONOSCOPY Instrument: Olympus variable stiffness pediatric scope 190L Colonoscopy Monitoring: Vital signs and clinical assessment, continuous EKG monitoring, Pulse oximetry, Carbon Dioxide monitoring and blood pressure monitoring were done throughout the procedure. The scope was entered and formed stool noted with poor visualization so the procedure was aborted Impression and Post Procedure Diagnosis: Endoscopy Findings: portal hypertensive gastropathy esophageal varices Colonoscopy Findings: poor prep Plan: clear liquid diet today and advance tomorrow, will sent carafate for 2 weeks to reduce risk of post banding ulceration and bleeding Repeat EGD in about 3-4 weeks Repeat Colonoscopy in few months, needs to be compliant with the prep Above findings were reviewed with the patient and relevant handouts were provided if indicated.
[2021-07-01 11:30] VITALS: BP 119/67; PULSE 106; RESP 16; TEMP 36.8; O2SAT 98
[2021-07-01 11:45] VITALS: BP 127/80; PULSE 89; RESP 18; TEMP 36.8; O2SAT 98
--- NOTE | 2021-07-01 11:49 | HO.POSTANES ---
Post Anesthesia Evaluation Post Anesthesia Evaluation Vital Signs: Vital Signs Temp Pulse Resp BP Pulse Ox 07/01/21 11:45 98.3 F 89 18 127/80 98 07/01/21 11:30 98.3 F 106 H 16 119/67 98 07/01/21 10:10 97.7 F 90 17 131/81 96 Anesthesia: Monitored Mental Status: Awake Pain Control: Satisfactory Nausea/Vomiting: None Hydration: Adequate Anesthesia-Related Issues: No Anes. Related Issues
== END 2021-07-01 12:34 | disposition home or self-care (01) ==
PROVIDERS: PCP Internal Medicine; Visit Provider Internal Medicine Gastroenterology
PROC: (CPT 45378; principal; 2021-07-01 10:50)
DX: D64.89 Other specified anemias (principal); Z86.010 Personal history of colon polyps; Z91.19 Patient's noncompliance with other medical treatment and regimen; K70.30 Alcoholic cirrhosis of liver without ascites; K70.10 Alcoholic hepatitis without ascites; F10.10 Alcohol abuse, uncomplicated; K72.90 Hepatic failure, unspecified without coma; K76.6 Portal hypertension; K31.89 Other diseases of stomach and duodenum; I85.00 Esophageal varices without bleeding; K44.9 Diaphragmatic hernia without obstruction or gangrene; E11.21 Type 2 diabetes mellitus with diabetic nephropathy; Z79.4 Long term (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 of insulin; Z90.49 Acquired absence of other specified parts of digestive tract; Z87.891 Personal history of nicotine dependence; E78.5 Hyperlipidemia, unspecified; E03.9 Hypothyroidism, unspecified; E55.9 Vitamin D deficiency, unspecified; Z79.899 Other long term (current) drug therapy
CPT/HCPCS: 45378; 43244; 82947

== ENCOUNTER 2021-07-02 07:36 | Outpatient (REF) | payer MEDICARE, MEDICAID, SELFPAY ==
--- NOTE | ~2021-07-02 | CT_ITS ---
EXAMINATION: CT HEAD WITHOUT CONTRAST CLINICAL INFORMATION: Intracranial injury with loss of consciousness. COMPARISON: Head CT dated 06/11/2021. TECHNIQUE: Contiguous axial imaging was performed from the skull base to vertex without intravenous administration of contrast. This CT examination was performed using dose optimization techniques as appropriate, variously including the following: *Automated exposure control *Adjustment of mA and/or kV according to patient size (this includes techniques or standardized protocols for targeted exams where dose is matched to indication/reason for exam; i.e. extremities or head) *Use of iterative reconstruction technique DLP: 828 mGy-cm FINDINGS: There is no evidence of acute intracranial hemorrhage or territorial infarction. No abnormal mass effect or midline shift is seen. Rivera to white matter differentiation is well preserved. No extra-axial fluid collections are identified. There is mild to moderate generalized parenchymal volume loss and concordant ex vacuo dilatation of the ventricles for patient age. There is no abnormal attenuation within the brain parenchyma. The osseous structures and soft tissues are normal. The mastoid air cells and visualized portions of the paranasal sinuses are well aerated. CT/CT head/brain wo con IMPRESSION: No acute intracranial pathology.
== END 2021-07-02 07:37 | disposition home or self-care (01) ==
LOC: HO.CT 07:36
PROVIDERS: PCP Internal Medicine; Visit Provider Psychiatry & Neurology Neurology
DX: S06.9X9D Unspecified intracranial injury with loss of consciousness of unspecified duration, subsequent encounter (principal)
CPT/HCPCS: 70450

== ENCOUNTER 2021-07-05 09:31 | Outpatient (REF) | payer MEDICARE, MEDICAID, SELFPAY ==
[2021-07-05 10:11] LABS: Estimated Average Glucose 174 mg/dL; Hemoglobin A1c % 7.7 %
[2021-07-05 10:27] LABS: Alanine Aminotransferase 33 U/L (0-40); Albumin Level 3.9 g/dL (3.5-5.0); Alkaline Phosphatase 138 U/L (39-117); Anion Gap 9 (12-20); Aspartate Amino Transferase 38 U/L (5-37); Bilirubin Total 0.9 mg/dL (0.0-1.0); Blood Urea Nitrogen 9 mg/dL (9-16); Calcium 9.3 mg/dL (8.4-10.2); Carbon Dioxide 26 mmol/L (22-29); Chloride 107 mmol/L (96-108); Cholesterol 135 mg/dL; Estimated Glomerular Filt Rate > 60; Glucose Fasting 147 mg/dL (60-99); HDL Cholesterol 42 mg/dL; LDL Cholesterol Calculated 76 mg/dl; Potassium 4.3 mmol/L (3.3-5.1); Sodium 138 mmol/L (135-145); Total Protein 8.2 g/dL (6.5-8.0); Triglycerides 87 mg/dL
[2021-07-05 10:41] LABS: Thyroid Stimulating Hormone 1.08 uIU/mL (0.32-4.0)
[2021-07-05 10:42] LABS: Free T4 (Free Thyroxine) 0.94 ng/dL (0.71-1.85)
== END 2021-07-05 09:32 | disposition home or self-care (01) ==
LOC: HO.LAB 09:31
PROVIDERS: Nurse Practitioner Acute Care; PCP Internal Medicine; Visit Provider Nurse Practitioner Gerontology
DX: E11.65 Type 2 diabetes mellitus with hyperglycemia (principal); R79.89 Other specified abnormal findings of blood chemistry; R94.5 Abnormal results of liver function studies; E78.00 Pure hypercholesterolemia, unspecified; E03.9 Hypothyroidism, unspecified
CPT/HCPCS: 36415; 80053; 80061; 83036; 84439; 84443

== ENCOUNTER → 2021-09-01 09:37 | Outpatient (BNVA) | payer MEDICARE, MEDICAID, SELFPAY | PROVIDERS: PCP Internal Medicine; Referring Provider Internal Medicine; Visit Provider Internal Medicine Gastroenterology | DX: Z23 Encounter for immunization (principal) | CPT/HCPCS: 90471; 90746 ==

== ENCOUNTER 2021-11-04 09:36 | Day surgery (SDC) | payer MEDICARE, MEDICAID, SELFPAY ==
[2021-11-04 09:44] VITALS: BP 159/125; PULSE 83; RESP 20; TEMP 36.2; O2SAT 97; BMI 29.0
[2021-11-04 10:22] VITALS: BP 138/89
--- NOTE | 2021-11-04 10:27 | HO.ANESPROP2 ---
HPI - Anesthesia Eval Consult details Narrative: 51 M for EGD and colonoscopy HTN , ETOH cirrhosis, varicies PMFSH Active Problems Active Problems: All Active Problems (Updated 08/22/21 @ 03:16 by Dakota Reilly MD) Diabetes (Acute) Prostate cancer screening (Acute) Bipolar disorder (Acute) Alcohol use disorder, severe, dependence (Acute) Acute kidney failure (Acute) Worsening headaches (Acute) Neck pain on left side (Acute) Fall (on) (from) unspecified stairs and steps, sequela (Acute) Rhabdomyolysis due to statin therapy (Acute) Encounter for initial annual wellness visit (AWV) in Medicare patient (Acute) Exposure to COVID-19 virus (Acute) Fall (on) (from) other stairs and steps, initial encounter (Acute) Generalized body aches (Acute) Memory deficit (Acute) Headache (Acute) Neck pain (Acute) Auditory hallucinations (Acute) Cirrhosis (Acute) Anemia (Acute) Alcohol use disorder (Acute) Overweight (BMI 25.0-29.9) (Acute) Obstructive uropathy (Acute) Alcoholic hepatitis (Acute) Hepatic encephalopathy (Acute) Portal hypertensive gastropathy (Acute) Varices of esophagus determined by endoscopy (Acute) Scrotal wall abscess (Acute) Bipolar depression (Acute) Elevated LFTs (Acute) Pure hypercholesterolemia (Acute) Abnormal liver function test (Acute) BPH (benign prostatic hyperplasia) (Acute) Obesity (BMI 30-39.9) (Acute) Postablative hypothyroidism (Acute) Dyslipidemia (Acute) Diabetic nephropathy associated with type 2 diabetes mellitus (Acute) 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 (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) Vitamin D deficiency (Acute) 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, urine (Acute) Hypothyroidism (Acute) Diabetes type 2, uncontrolled (Acute) Past Medical History Medical History Abdominal pain Abnormal liver function test Acute upper gastrointestinal bleeding Alcohol abuse with withdrawal Alcohol use disorder Alcoholic hepatitis Anemia Bipolar depression BPH (benign prostatic hyperplasia) Cirrhosis Coffee ground emesis Diabetes type 2, uncontrolled Diabetic nephropathy associated with type 2 diabetes mellitus Dyslipidemia Elevated LFTs Hepatic encephalopathy Hypothyroidism 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, urine 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 Obesity (BMI 30-39.9) Obstructive uropathy Overweight (BMI 25.0-29.9) Portal hypertensive gastropathy Postablative hypothyroidism Pure hypercholesterolemia Scrotal wall abscess Transaminitis Urinary retention Varices of esophagus determined by endoscopy Vitamin D deficiency Family History Family History Father Diabetes Mother Diabetes Maternal Aunt Family history of thyroid problem Other Mental health problem Substance abuse Family history of problems with anesthesia: No Surgical History Surgical History History of arthroscopy of left knee History of laparoscopic cholecystectomy Hx of colonoscopy Hx of esophagogastroduodenoscopy History of Problems with Anesthesia: No Social History Social History Household Members: None Housing: House Do you presently have visiting nurse or other home services: Yes Alcohol intake: former Patient Tobacco Use Status: Former Tobacco user Tobacco use type: Cigarette Years Smoked: 1 e-Cigarette/Vaping Use: Never Used Second Hand Smoke Exposure: Yes service: No Current occupational status: unemployed Cognitive needs: No Hearing needs: No Vision needs: No Meds Allergies Allergy/AdvReac Type Severity Reaction Status Date / Time No Known Allergies Allergy Verified 10/29/21 12:41 [No Known Allergies*] Home Medications Medication Instructions Recorded Confirmed Last Taken Type benztropine 0.5 mg tablet 0.5 mg PO DAILY 02/14/20 08/22/21 12/23/20 06:00 History mirtazapine 45 mg tablet 45 mg PO BEDTIME 02/14/20 10/29/21 Unknown History risperidone 2 mg tablet 2 mg PO BEDTIME 02/14/20 10/29/21 Unknown History lithium carbonate 300 mg tablet See Rx Instructions PO .COMPLEX 04/17/20 08/22/21 12/23/20 06:00 History trazodone 50 mg tablet See Rx Instructions PO BEDTIME PRN 04/17/20 10/29/21 Unknown History insomnia venlafaxine 75 mg capsule,extended 75 mg PO DAILY 02/04/21 10/29/21 Unknown History release 24 hr quetiapine 100 mg tablet 100 mg PO QAM 08/18/21 10/29/21 Unknown History quetiapine 400 mg tablet 400 mg PO BEDTIME 08/18/21 10/29/21 Unknown History Exam Exam Date and Time: November 04, 2021 1027 Height,Weight and Vital Signs: Height 5 ft 6 in Weight 81.647 kg Last Vital Signs Temp 97.2 F 11/04/21 09:44 Pulse 83 11/04/21 09:44 Resp 20 11/04/21 09:44 BP 138/89 11/04/21 10:22 Pulse Ox 97 11/04/21 09:44 O2 Del Method 11/04/21 09:44 Airway Mallampati Class: III TM Dist: >3cm Neck ROM: Full Partial: Upper and Lower Loose/Missing/Broken Teeth: Yes (Poor dentition ) Heart: S1,S2 Lungs: b/l breath sounds Assessment and Plan Assessment Anesthesia Assessment: Anesthesia Plan Discussed and Chart Reviewed Final Anesthetic Review Family History of Problems with Anesthesia: No History of Problems with Anesthesia: No NPO: Yes ASA Class: III Final Preanesthetic Review: Meds/Allgs Chart Reviewed, Consent Obtained/Reviewed and Anes Risks/Benef Reviewed Patient Risk: High Procedure Risk: Intermediate Anesthetic Plan Anesthetic Plan: MAC: Disposition: Standard PACU
--- NOTE | 2021-11-04 10:34 | MHC.SHP ---
Pre-Procedural Eval Section A Date of Service: 11/04/21 Section B Chief Complaint: Alcoholic cirrhosis of liver without ascites,anemi Details of Present Illness: repeat EGD due to hx of varices, prior colon with poor prep Relevant Family History (Specify if Yes): No Relevant Social History: Alcohol Use Present Medications: see Short Stay Collaborative assessment Medical History: Significant History (Abdominal pain Abnormal liver function test Acute upper gastrointestinal bleeding Alcohol abuse with withdrawal Alcohol use disorder Alcoholic hepatitis Anemia Bipolar depression BPH (benign prostatic hyperplasia) Cirrhosis Coffee ground emesis Diabetes type 2, uncontrolled Diabetic nephropathy asso) History of Previous Operations: Relevant previous surgery/procedure and date(s) (History of arthroscopy of left knee History of laparoscopic cholecystectomy Hx of colonoscopy Hx of esophagogastroduodenoscopy) Allergies: Allergies Allergy/AdvReac Type Severity Reaction Status Date / Time No Known Allergies Allergy Verified 10/29/21 12:41 [No Known Allergies*] Review of Systems Sugical H&P ROS: Negative: Constitution, Cardiovascular, Respiratory, Neurological, Psychiatric, Hem-Onc, Allergic/Immunologic, Gastrointestinal, Genitourinary, Musculoskeletal, Integumentary, Endocrine and Eyes/Ears/Nose/Throat Exam Surgical H&P Exam: Normal: HEENT, Normal: Heart, Normal: Lungs, Normal: Extremities, Normal: Abdomen, Normal: Skin and Normal: Neurological Plan Diagnosis/Plan: Unchanged I have reviewed the history and physical and performed a pertinent physical examination on my patient. No changes have occurred unless specified.
--- NOTE | 2021-11-04 10:35 | W.PM.OPN ---
Operative Note Operative Note Date of Service: 11/04/21 Narrative: Operative Information Procedure Description: EGD, Colonoscopy Indication: hx of varices and prior poor prep for colonoscopy for anemia work up Anesthesia: MAC FLEXIBLE TRANSORAL UPPER GASTROINTESTINAL ENDOSCOPY AND COLONOSCOPY PROCEDURE NOTE UPPER ENDOSCOPY Consent: Indications for the procedure and potential complications of bleeding, perforation, reaction to medications and missed diagnosis were discussed with the patient and informed consent was obtained. Instrument: Olympus GIF H 190 J mid size upper endoscope Monitoring: Vital signs and clinical assessment, continuous EKG monitoring, Pulse oximetry, Carbon Dioxide monitoring and blood pressure monitoring were done throughout the procedure. Procedure: The patient was placed in the left lateral decubitis position and pre-procedure medications were administered and a bite block was placed. The endoscope was inserted into the mouth and advanced under direct vision to the third part of duodenum. A careful inspection was made as the upper endoscope was withdrawn including a retroflexed examination of the proximal stomach; Findings and interventions are described below. Findings: Larynx:normal Esophagus: GE junction at 38? cm, diaphragm hiatus at 38 cm, 2 variceal columns noted, one at 3 O'clock was grade II and the other was grade I, no high risk stigmata, but extended into the stomach i.e type 1 GOV, 2 bands applied with good effect Stomach: Patchy gastric erythema and mosaic pattern consistent with portal hypertensive?gastritis. Grade 2 flap valve on retroflexed examination of the cardia, gastric varix extending from esophagus noted ie: type 1 GOV. Duodenum: Normal bulb and descending duodenum, Intervention: esophageal banding COLONOSCOPY Instrument: Olympus variable stiffness pediatric scope 190L Colonoscopy Monitoring: Vital signs and clinical assessment, continuous EKG monitoring, Pulse oximetry, Carbon Dioxide monitoring and blood pressure monitoring were done throughout the procedure. Procedure: The patient was placed in the left lateral decubitis position and pre-procedure medications were administered. After a digital rectal examination of the ano-rectum, the video colonoscope was inserted into the rectum and advanced through the colon The colonoscope was slowly withdrawn in a retrograde panoramic fashion and the colon mucosa was carefully examined including a retroflexed view of the rectum. Findings and interventions are described below. Findings: Poor prep with solid stools, all the way up to the transverse colon, so procedure was aborted Rectum: Retroflexion with small internal hemorrhoids, grade I Anorectum - normal Impression and Post Procedure Diagnosis: Endoscopy Findings: portal hypertensive gastropathy esophageal varices Colonoscopy Findings: poor prep Plan: clear liquid diet today and advance tomorrow, Repeat Colonoscopy in few months, needs to be compliant with the prep, have doubts he has been taking the prep as this is the second time this has happened Above findings were reviewed with the patient and relevant handouts were provided if indicated.
[2021-11-04 11:11] LABS: Glucose, Whole Blood 116 mg/dL (60-115)
[2021-11-04 11:41] VITALS: BP 127/82; PULSE 93; RESP 15; TEMP 36.9; O2SAT 98
[2021-11-04 11:56] VITALS: BP 134/89; PULSE 96; RESP 14; TEMP 36.8; O2SAT 96
== END 2021-11-04 12:25 | disposition home or self-care (01) ==
LOC: HO.SSS 09:37
PROVIDERS: PCP Internal Medicine; Visit Provider Internal Medicine Gastroenterology
PROC: (CPT 45330; principal; 2021-11-04 11:10)
DX: D64.89 Other specified anemias (principal); K64.0 First degree hemorrhoids; K70.30 Alcoholic cirrhosis of liver without ascites; K72.90 Hepatic failure, unspecified without coma; K44.9 Diaphragmatic hernia without obstruction or gangrene; I85.00 Esophageal varices without bleeding; K76.6 Portal hypertension; K31.89 Other diseases of stomach and duodenum; F10.11 Alcohol abuse, in remission; F31.9 Bipolar disorder, unspecified; E03.9 Hypothyroidism, unspecified; E78.5 Hyperlipidemia, unspecified; E11.9 Type 2 diabetes mellitus without complications; Z86.010 Personal history of colon polyps; Z79.4 Long term (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 of insulin; Z79.899 Other long term (current) drug therapy; Z91.19 Patient's noncompliance with other medical treatment and regimen; Z87.891 Personal history of nicotine dependence; Z90.49 Acquired absence of other specified parts of digestive tract
CPT/HCPCS: 45330; 43244; 82947; J2250

== ENCOUNTER 2021-11-17 09:56 | Outpatient (REF) | payer MEDICARE, MEDICAID, SELFPAY ==
[2021-11-17 10:38] LABS: MANUAL DIFF FLAG NO
[2021-11-17 10:48] LABS: Basophils Absolute Auto 0.1 X10*3/uL (0.0-0.2); Basophils Percent Auto 0.8 % (0-2); Eosinophils Absolute Auto 0.1 X10*3/uL (0.0-0.4); Eosinophils Percent Auto 1.8 % (0-4); Hematocrit 43.1 % (42.0-52.0); Hemoglobin 14.2 g/dl (14.0-18.0); Imm Gran Abs Auto 0.02 X10*3/uL (0.00-0.03); Imm Gran Pct Auto 0.3 % (0.0-0.4); Lymphocytes Absolute Auto 1.5 X10*3/uL (1.2-4.9); Lymphocytes Percent Auto 25.8 % (20-40); Mean Corpuscular HGB Conc 32.9 g/dl (31.0-36.0); Mean Corpuscular Hemoglobin 28.7 pg (27.0-33.0); Mean Corpuscular Volume 87.1 fL (80.0-98.0); Mean Platelet Volume 10.6 fL (9.4-12.4); Monocytes Absolute Auto 0.4 X10*3/uL (0.1-1.2); Neutrophils Absolute Auto 3.8 x10*3/uL (2.0-8.3); Neutrophils Percent Auto 64.3 % (45-73); Red Blood Count 4.95 X10*6/uL (4.60-5.80); Red Cell Distribution Width 20.6 % (11.0-16.0)
[2021-11-17 10:51] LABS: Platelet Count 69 X10*3/uL (160-400)
[2021-11-17 10:53] LABS: Estimated Average Glucose 148 mg/dL; Hemoglobin A1c % 6.8 %
[2021-11-17 10:58] LABS: Appearance Urine CLEAR; Color Urine YELLOW; Glucose Urine UA >=1000 MG/DL (NEG); Leukocyte Esterase Urine NEG (NEG); Nitrite Urine NEG (NEG); Urine Blood NEG (NEG); Urine Ketones NEG (NEG); Urine Protein NEG (NEG-TRACE)
[2021-11-17 11:17] LABS: Alanine Aminotransferase 66 U/L (0-40); Albumin Level 4.3 g/dL (3.5-5.0); Alkaline Phosphatase 149 U/L (39-117); Anion Gap 16 (12-20); Aspartate Amino Transferase 72 U/L (5-37); Bilirubin Total 0.6 mg/dL (0.0-1.0); Blood Urea Nitrogen 10 mg/dL (9-16); Calcium 8.7 mg/dL (8.4-10.2); Chloride 107 mmol/L (96-108); Estimated Glomerular Filt Rate > 60; Glucose Fasting 222 mg/dL (60-99); Potassium 4.3 mmol/L (3.3-5.1); Sodium 140 mmol/L (135-145); Total Protein 8.4 g/dL (6.5-8.0)
[2021-11-17 11:20] LABS: Carbon Dioxide 21 mmol/L (22-29)
[2021-11-17 11:26] LABS: Squamous Epithelial Cell Urine TRACE /LPF
[2021-11-17 11:29] LABS: RBC Urine 0 /HPF (0); WBC Urine 0 /HPF (0-4)
[2021-11-17 11:40] LABS: Free T4 (Free Thyroxine) 0.61 ng/dL (0.71-1.85); Thyroid Stimulating Hormone 23.88 uIU/mL (0.32-4.0); Vitamin D 25-OH Total 33.6 ng/mL (>30)
[2021-11-17 12:15] LABS: Creatinine Urine 33.78 mg/dL; Microalbumin Urine < 5.0 mg/L
== END 2021-11-17 09:57 | disposition home or self-care (01) ==
LOC: HO.10HDL 09:56
PROVIDERS: Visit Provider Internal Medicine
DX: E11.9 Type 2 diabetes mellitus without complications (principal); E78.00 Pure hypercholesterolemia, unspecified; E03.9 Hypothyroidism, unspecified; E55.9 Vitamin D deficiency, unspecified; I10 Essential (primary) hypertension
CPT/HCPCS: 36415; 80053; 81001; 82043; 82306; 83036; 84439; 84443; 85025

== ENCOUNTER → 2021-11-29 09:55 | Outpatient (BNVA) | payer MEDICARE, MEDICAID, SELFPAY | PROVIDERS: PCP Internal Medicine; Visit Provider Internal Medicine Gastroenterology | DX: K70.10 Alcoholic hepatitis without ascites (principal); R79.89 Other specified abnormal findings of blood chemistry | CPT/HCPCS: Q3014 ==

== ENCOUNTER 2022-01-27 08:46 | Outpatient (REF) | payer MEDICARE, MEDICAID, SELFPAY ==
--- NOTE | ~2022-01-27 | US_ITS ---
EXAMINATION: US COMPLETE ABDOMEN WITH LIVER ELASTOGRAPHY CLINICAL INFORMATION: Alcoholic hepatitis without ascites. HCC screening. COMPARISON: Previous abdominal ultrasound most recent April [address] of the abdomen and pelvis most recent September 2020 TECHNIQUE: Real-time imaging of the abdominal viscera. Noninvasive ultrasound liver fibrosis assessment is performed using Dante ElastPQ point quantification shear wave elastography (2D-SWE) with a C5-2 MHz transducer. Multiple elastography samples are obtained. FINDINGS: PANCREAS: Normal. ABDOMINAL AORTA: The proximal, middle, and distal aortic segments are normal in caliber. INFERIOR VENA CAVA: Visualized portions are normal. LIVER: The liver is cirrhotic. Liver echotexture is increased and heterogeneous. There is left-sided intrahepatic biliary duct dilatation that is new. The right lobe measures 18 cm in length. The left lobe measures 12 cm in length. Portal flow is absent. The main right and left portal veins appear thrombosed. There is a recannulized paraumbilical vein that appears thrombosed. Shear wave liver elastography median stiffness is 2.5 m/s (reference: normal median stiffness is 1.3 m/s or less). IQR/median stiffness to assess sampling precision is 0.11 (reference: good quality data set is IQR/median stiffness of 0.15 or less). GALLBLADDER: Surgically removed. COMMON BILE DUCT: Normal in caliber measuring 0.3 cm in diameter. RIGHT KIDNEY: Normal. No hydronephrosis. No renal calculi or focal parenchymal lesions. The kidney measures 11.6 cm in maximum dimension. LEFT KIDNEY: Normal. No hydronephrosis. No renal calculi or focal parenchymal lesions. The kidney measures 13 cm in maximum dimension. SPLEEN: The spleen is enlarged. The spleen measures 15.5 cm in maximum dimension. 2 cm splenule. FREE FLUID: None. US/US abdomen comp w elastography IMPRESSION: 1. Impression: Cirrhotic-appearing liver. New Left-sided intrahepatic biliary duct dilatation. Occluded main right and left portal veins and recanalized paraumbilical vein. Follow-up liver MRI recommended. 2. Liver elastography: Adequate liver sampling. Increased liver stiffness suggestive of clinically significant portal hypertension. Findings will be communicated by the Hodgen work flow video tape transferrer. REFERENCE: Society of Radiologists in Ultrasound Liver Stiffness Thresholds (2020): LIVER STIFFNESS THRESHOLDS: *Liver Stiffness equal or less than 1.3 m/s: High probability of being normal. *Liver Stiffness less than 1.7 m/s: In the absence of other known clinical signs, rules out compensated advanced chronic liver disease. *Liver Stiffness 1.7-2.1 m/s: Suggestive of compensated advanced chronic liver disease but need further test for confirmation. *Liver Stiffness over 2.1 m/s: Rules in compensated advanced chronic liver disease. *Liver Stiffness over 2.4 m/s: Suggestive of clinically significant portal hypertension. QUALITY OF DATA SET: *IQR/Median value equal or less than 0.15 implies a quality data set. *IQR/Median value over 0.15 implies a poor quality data set. SIGNIFICANT CHANGE FROM PRIOR EXAM: Significant change if liver stiffness measurement is 10% or greater from prior exam. OTHER CONSIDERATIONS: The stage of liver fibrosis may be overestimated in the setting of acute hepatitis, liver inflammation, elevated liver function tests, hepatic vascular congestion, obstructive cholestasis, non-fasting state, and infiltrative diseases such as amyloidosis and lymphoma. In some patients with NAFLD, the liver stiffness thresholds for compensated advanced chronic liver disease may be lower. In causes other than viral hepatitis and NAFLD, liver stiffness thresholds are not well established.
== END 2022-01-27 08:47 | disposition home or self-care (01) ==
LOC: HO.US 08:46
PROVIDERS: Visit Provider Internal Medicine Gastroenterology
DX: K70.10 Alcoholic hepatitis without ascites (principal); R79.89 Other specified abnormal findings of blood chemistry
CPT/HCPCS: 76705; 76981

== ENCOUNTER 2022-02-07 08:15 | Outpatient (REF) | payer MEDICARE, MEDICAID, SELFPAY ==
--- NOTE | ~2022-02-07 | MR_ITS ---
EXAMINATION: MR ABDOMEN WITHOUT AND WITH CONTRAST CLINICAL INFORMATION: Alcoholic cirrhosis without ascites. COMPARISON: Ultrasound abdomen from 01/27/2022. Abdomen CT from 09/25/2020. TECHNIQUE: MR abdomen was performed without and with use of 8.5 mL intravenous Gadavist. Postcontrast images are performed in multiphase dynamic sequences. Imaging was performed in 3 planes. FINDINGS: LUNG BASES: Normal. No pulmonary consolidation or pleural effusion at either lung base. LIVER: Again noted is the cirrhotic liver that has nodular surface contour and exhibits signal loss on [id number] compared to in-phase images from steatosis. The evaluation of the liver is partially limited by patient respiratory motion. The molecular technologist reports that the patient had difficulty sustaining a breath-hold. 0.6 cm subcapsular focus of arterial enhancement in hepatic segment 4A is likely a focus of transient hyperenhancement. There is a somewhat linear focus of arterial phase hyperenhancement in the anterolateral aspect of hepatic segment 7 near its junction with segment 8 that measures approximately 1.5 cm AP on the arterial phase images. This focus is a smaller focus of hyperenhancement on venous phase images, and corresponds to 0.7 cm focus of T2 hyperintensity on noncontrast images. Therefore, this very likely represents a small hyperenhancing cavernous hemangioma. There is no identifiable abnormality in this area on the equilibrium phase postcontrast images. However, these images are motion degraded. There are no liver foci that exhibit hyperenhancement with subsequent washout or capsular features. GALLBLADDER AND BILIARY TREE: Cholecystectomy. No dilated bile ducts. PANCREAS: Normal. No edema, pancreatic ductal dilatation or mass. SPLEEN: Chronic splenomegaly. Spleen measures approximately 16.3 cm craniocaudal dimension. No focal splenic lesion. ADRENAL GLANDS: Normal. KIDNEYS: Kidneys are normal in size and enhance symmetrically. No renal mass or hydronephrosis. A small, subcentimeter sized cyst at the upper pole the left kidney is unchanged compared to 04/27/2020. No renal imaging follow-up is recommended for a simple cyst. BOWEL AND PERITONEUM: Stomach is unremarkable. No dilated loops of bowel. No bowel wall thickening or mesenteric fat stranding. No ascites or peritoneal nodules. VASCULATURE: Atherosclerotic abdominal aorta is normal in size and its branches are widely patent. The common hepatic artery has a normal origin from the celiac artery. Inferior vena cava is normal. Splenic, portal and hepatic veins are patent. There are perisplenic and perigastric varices with spontaneous splenorenal shunt. Varices chronically project into the wall of the gallbladder fundus. Mildly dilated recanalized paraumbilical vein is noted. LYMPH NODES: No pathologic sized lymph nodes in the abdomen. SKELETAL: No suspicious bone lesions. MR/MR abdomen wo/w con IMPRESSION: * Liver cirrhosis, steatosis and splenomegaly. No ascites. * No MR imaging evidence of hepatocellular carcinoma. * A small, 0.7 cm T2 hyperintense focus in the right lobe of the liver is hyperenhancing on the arterial and venous phase images, and likely represents flash filling of a small cavernous hemangioma. * Chronic portal venous hypertension. There is observation of a recanalized paraumbilical vein and chronic perisplenic/perigastric varices with spontaneous splenorenal shunt.
== END 2022-02-07 08:16 | disposition home or self-care (01) ==
LOC: HO.MRI 08:15
PROVIDERS: Visit Provider Internal Medicine Gastroenterology
DX: K70.30 Alcoholic cirrhosis of liver without ascites (principal)
CPT/HCPCS: 74183; A9585

== ENCOUNTER 2022-03-30 12:11 | Outpatient (REF) | payer MEDICARE, MEDICAID, SELFPAY ==
[2022-03-30 13:15] LABS: Influenza A PCR NEGATIVE (Negative); Influenza B PCR NEGATIVE (Negative); Resp Syncy Virus RNA Qual PCR NEGATIVE (Negative); SARS COV2 PCR INHOUSE POSITIVE (Negative)
== END 2022-03-30 12:12 | disposition home or self-care (01) ==
LOC: HO.LNP 12:11
PROVIDERS: Visit Provider Nurse Practitioner Family
DX: Z20.822 Contact with and (suspected) exposure to COVID-19 (principal); B34.9 Viral infection, unspecified
CPT/HCPCS: 0241U

== ENCOUNTER → 2022-04-01 10:00 | Outpatient (BNVA) | payer MEDICARE, MEDICAID, SELFPAY | PROVIDERS: PCP Internal Medicine; Visit Provider Internal Medicine Gastroenterology | DX: K70.30 Alcoholic cirrhosis of liver without ascites (principal); K76.6 Portal hypertension | CPT/HCPCS: Q3014 ==